=== PATIENT | female | born 1970 | race Caucasian/White ===

== ENCOUNTER 2017-09-27 22:08 | Emergency (ER) | payer BC, SELFPAY | END 2017-09-28 01:09 | disposition home or self-care (01) | PROVIDERS: Emergency Provider Emergency Medicine; Family Provider Emergency Medicine; Visit Provider Emergency Medicine | DX: L42 Pityriasis rosea (principal); R21 Rash and other nonspecific skin eruption; F17.210 Nicotine dependence, cigarettes, uncomplicated | CPT/HCPCS: 80053; 82550; 85025; 85651; 86140; 86592; 87040; 96365; 99283 ==

== ENCOUNTER → 2019-03-13 07:44 | Outpatient (CLI) | payer BC, SELFPAY ==
[2019-03-13 08:28] LABS: Basophils % 0.5 % (0.1-2.0); Eosinophils # 0.2 K/mm3 (0.0-0.4); Eosinophils % 2.5 % (0.1-12.0); Hematocrit 40.2 % (37.0-47.0); Hemoglobin 13.1 g/dL (12.2-16.2); Lymphocytes # 1.9 K/mm3 (0.7-4.5); Lymphocytes % 23.9 % (10-50); Mean Corpuscular HGB Conc 32.6 g/dL (31.8-35.4); Mean Corpuscular Hemoglobin 28.2 pg (27.0-31.2); Mean Corpuscular Volume 86.5 fl (81-99); Monocytes # 0.5 K/mm3 (0.1-1.0); Monocytes % 6.8 % (1.7-9.3); Neutrophils # 5.2 K/mm3 (1.8-7.8); Neutrophils % 66.3 % (37.0-80.0); Platelet Count 335 K/mm3 (142-424); Red Blood Count 4.65 M/mm3 (4.20-5.40); Red Cell Distribution Width 14.6 % (11.5-17.5); White Blood Count 7.8 K/mm3 (4.8-10.8)
[2019-03-13 10:08] LABS: Alanine Aminotransferase 16 U/L (12-78); Albumin Level 3.4 gm/dL (3.4-5.0); Albumin/Globulin Ratio 0.9 (1.1-1.8); Alkaline Phosphatase 107 U/L (46-116); Anion Gap 14.5 mEq/L (5-15); Aspartate Amino Transferase 17 U/L (15-37); Bilirubin,Total 0.7 mg/dL (0.2-1.0); Blood Urea Nitrogen 5 mg/dL (7-18); Calcium 8.9 mg/dL (8.5-10.1); Carbon Dioxide 28 mmol/L (21.0-32.0); Chloride 103 mmol/L (98-107); Chol/HDL Ratio 2.8 (1-3.5); Cholesterol 119 mg/dL (140-200); Creatinine,Serum 0.64 mg/dL (0.55-1.02); Estimated Glomerular Filt Rate 99 ml/min (>60); Free T4 (Free Thyroxine) 1.11 ng/dl (0.76-1.46); GFR (African American) 120 ML/MIN (>60); Globulin 3.6 gm/dl (1.3-3.2); Glucose 94 mg/dL (74-106); HDL Cholesterol 43 mg/dL (29-89); LDL Cholesterol 63 mg/dL (0-130); Potassium 4.5 mmoL/L (3.5-5.1); Sodium 141 mmol/L (136-145); Thyroid Stimulating Hormone 3.34 uIU/ml (0.358-3.740); Triglycerides 65 mg/dL (30-200); VLDL Cholesterol 13 mg/dL (0-40)
[2019-03-14 10:49] LABS: Vitamin D 25 Hydroxy 11.5 ng/mL (30.0-100.0)
[2019-03-20 06:16] LABS: H. pylori Breath Test Positive (Negative)
== END ==
PROVIDERS: Visit Provider Nurse Practitioner Family
DX: R53.83 Other fatigue (principal); R10.9 Unspecified abdominal pain; K21.9 Gastro-esophageal reflux disease without esophagitis
CPT/HCPCS: 36415; 80053; 80061; 82652; 83013; 84439; 84443; 85025

== ENCOUNTER 2020-03-28 20:43 | Inpatient (IN) | payer BC, SELFPAY ==
--- NOTE | 2020-03-28 20:51 | ECG_ITS ---
APPROVED REPORT Exam: Resting ECG HR:72 bpm ECG Measurements Heart Rate 72 AXES FL 132 P 80 QRSd 60 QRS 73 QT 398 T 69 QTc 435 <Conclusion> Normal sinus rhythm Right atrial enlargement Borderline ECG Electronically signed by : Delvis Soliman, 03/30/2020 17:09:45
[2020-03-28 20:54] VITALS: BP 130/75; PULSE 82; RESP 16; TEMP 36.2; O2SAT 95; BMI 19.7
--- NOTE | 2020-03-28 21:00 | XR_ITS ---
PROCEDURE: XR CHEST 2V CLINICAL HISTORY: shortness of air COMPARISON: CXR CHEST(2 VIEWS-NOT PORTABLE) from 10/21/2016 CXR CHEST(2 VIEWS-NOT PORTABLE) from 02/07/2017 FINDINGS: The cardiomediastinal silhouette and pulmonary vascularity are within normal limits. There is a medium-sized left pneumothorax. There is depression of the hemidiaphragm and minimal tracheal deviation toward the right. The pneumothorax is approximately 40 percent of the total lung volume and may be under tension. There is increasing consolidation in both upper lobes with right apical pleural thickening. There may be a small amount of gas in the soft tissues of the neck. No acute bony abnormalities. IMPRESSION: Moderate-sized left-sided pneumothorax which may be under some tension. Increasing fibronodular changes/consolidation in both upper lobes with increasing apical thickening on right Dictated by: Rafael Joseph MD 03/29/2020 05:26 Electronically signed by Rafael Joseph MD in [place] 03/29/2020 05:26
[2020-03-28 21:16] LABS: Chloride 104 mmol/L (98-107); Potassium 3.7 mmoL/L (3.5-5.1); Sodium 138 mmol/L (136-145)
[2020-03-28 21:19] LABS: Alanine Aminotransferase 12 U/L (12-78); Albumin Level 4.2 g/dl (3.5-5.0); Alkaline Phosphatase 116 U/L (38-126); Anion Gap 9.7 mEq/L (5-15); Aspartate Amino Transferase 25 U/L (14-36); Bilirubin,Direct 0.3 mg/dl (0.0-0.4); Bilirubin,Indirect 0.1 mg/dL (0.0-0.9); Bilirubin,Total 0.4 mg/dl (0.2-1.3); Bilirubin,Unconjugated 0.2 mg/dL (0.0-1.1); Blood Urea Nitrogen 8 mg/dl (7-17); Calcium 8.9 mg/dl (8.4-10.2); Carbon Dioxide 28 mmol/L (22.0-30.0); Creatinine Clearance Estimated 81 mL/min (50-200); Estimated Glomerular Filt Rate 89 ml/min (>60); GFR (African American) 108 ML/MIN (>60); Glucose 133 mg/dl (74-100); Total Protein,Serum 7.9 g/dl (6.3-8.2)
[2020-03-28 21:21] LABS: Basophils # 0.1 K/mm3 (0-0.2); Basophils % 0.5 % (0.1-2.0); Eosinophils # 0.1 K/mm3 (0.0-0.4); Eosinophils % 1.3 % (0.1-12.0); Hematocrit 38.9 % (37.0-47.0); Hemoglobin 12.8 g/dL (12.2-16.2); Lymphocytes # 2.6 K/mm3 (0.7-4.5); Lymphocytes % 27.9 % (10-50); Mean Corpuscular Hemoglobin 29.5 pg (27.0-31.2); Mean Corpuscular Volume 89.3 fl (81-99); Mean Platelet Volume 8.3 fl (7.4-10.4); Monocytes # 0.6 K/mm3 (0.1-1.0); Monocytes % 6.6 % (1.7-9.3); Neutrophils % 63.7 % (37.0-80.0); Platelet Count 357 K/mm3 (142-424); Red Blood Count 4.35 M/mm3 (4.20-5.40); White Blood Count 9.5 K/mm3 (4.8-10.8)
[2020-03-28 21:24] LABS: C-Reactive Protein 8.9 mg/L (0-4)
[2020-03-28 21:34] VITALS: PULSE 77
[2020-03-28 21:39] VITALS: BP 98/50; PULSE 77; RESP 18; O2SAT 95
[2020-03-28 21:42] LABS: Troponin I < 0.01 ng/ml (0.00-0.034)
--- NOTE | 2020-03-28 22:16 | PC.NURSE ---
call placed to [facility] for b ed assignment, dx pneumo; tyesha arambula, room 209, acute
--- NOTE | 2020-03-28 22:25 | HMH.EDSOB ---
ED Disposition Clinical Impression: Pneumothorax on left, Tobacco use COPD (chronic obstructive pulmonary disease) Qualifiers: COPD type: unspecified COPD Qualified Code(s): J44.9 - Chronic obstructive pulmonary disease, unspecified Disposition: Admitted as Observation Condition on Discharge: Good - Critical Care Critical Care Time: No Attestation: On 03/28/20, the high probability of a clinically significant, sudden or life threatening deterioration of the following system(s) required my full and direct attention, intervention and personal management. The time I documented below is in addition to time spent performing reported procedures but includes the following listed in this critical care notation. Medical Decision Making - Medical Records Medical records reviewed: Yes: I reviewed the patient's medical records. - Juanpablo Inquiry Pt receiving controlled substance: No Vital Signs: 03/28/20 20:54 03/28/20 21:34 03/28/20 21:39 Temperature 97.2 F L Temperature Source Oral Pulse Rate 77 Pulse Rate [Right Brachial] 82 77 Respiratory Rate 16 18 Blood Pressure [Right Arm] 130/75 98/50 L Blood Pressure Mean [Right Arm] 93 66 Blood Pressure Source [Right Arm] Automatic Cuff Blood Pressure Position [Right Arm] Sitting 02 Sat by Pulse Oximetry 95 95 Oxygen Delivery Method Room Air Room Air - Lab Data Lab results reviewed: Yes: I reviewed the patient's lab results. Lab Results 03/28/20 21:06: WBC 9.5, RBC 4.35, Hgb 12.8, Hct 38.9, MCV 89.3, MCH 29.5, MCHC 33.0, RDW 14.0, Plt Count 357, MPV 8.3, Neut % (Auto) 63.7, Lymph % (Auto) 27.9, Greene % (Auto) 6.6, Eos % (Auto) 1.3, Baso % (Auto) 0.5, Neut # (Auto) 6.0, Lymph # (Auto) 2.6, Greene # (Auto) 0.6, Eos # (Auto) 0.1, Baso # (Auto) 0.1 03/28/20 21:06: Sodium 138, Potassium 3.7, Chloride 104, Carbon Dioxide 28, Anion Gap 9.7, BUN 8, Creatinine 0.70, Estimated Creat Clear 81, Estimated GFR 89, Est GFR ( Amer) 108, Glucose 133 H, Calcium 8.9, Total Bilirubin 0.4, Direct Bilirubin 0.3, Conjugated Bilirubin 0.0, Indirect Bilirubin 0.1, Unconjugated Bilirubin 0.2, AST 25, ALT 12, Alkaline Phosphatase 116, Troponin I < 0.01, C-Reactive Protein 8.9 H, Total Protein 7.9, Albumin 4.2 Result diagrams: 03/28/20 21:06 03/28/20 21:06 Orders (Tests/Meds): ED MEDICATIONS Discontinued Medications Generic Name Dose Route Start Last Admin Trade Name Ever PRN Reason Stop Dose Admin Albuterol/Ipratropium 3 ml 03/28/20 21:27 03/28/20 21:31 Duoneb 3ml Neb IH 03/28/20 21:28 3 ml ONCE ONE Administration ORDERS Category Date Time Status Chest XR 2 view (NOT portable) [XR chest 2V] Stat Exams 03/28/20 21:00 Taken ESR [Erythrocyte Sedimentation Rate] Stat Lab 03/28/20 21:06 Received Troponin I Q3H Lab 03/29/20 00:15 Ordered Troponin I Q3H Lab 03/29/20 03:15 Ordered - Radiology Data #1 Image(s): Chest Image Reviewed: Yes I reviewed the patient's radiology image Preliminary Findings: Abnormal (pxt ) - ECG Data Tracing #1 Normal Sinus Rhythm: Yes Ischemic changes: non-specific ST-T wave changes - Physician Consults Physician Consulted: allran Reason -: Pt condition Resp/SOB HPI - General Chief Complaint: Shortness of Breath/Dyspnea Stated Complaint: Cannot breathe, COPD Time Seen by Provider: 03/28/20 21:30 Mode of Arrival: Family Vehicle Source of Information: Patient, Significant Other, Medical Record Limitations: No Limitations Description of Symptoms (Recalled from ER Triage Doc. 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 tried to use her inhaler and it didn't help. denies n/v/d. no change in meds, no change in uop. pt is alert-oriented x4. no acute distress. - History of Present Illness pt with hx of copd and had sob which started today about 1400 - no other c/o MD Complaint: shortness of breath Onset (ago): hour(s) Severity: moderate Known histor
--- NOTE | 2020-03-28 22:43 | PC.NURSE ---
dr iyer at bedside
--- NOTE | 2020-03-28 23:11 | XR_ITS ---
PROCEDURE: XR CHEST PORTABLE CLINICAL HISTORY: chest tube placement The follow-up pneumothorax COMPARISON: CXR CHEST(2 VIEWS-NOT PORTABLE) from 10/21/2016 CXR CHEST(2 VIEWS-NOT PORTABLE) from 02/07/2017 XR CHEST 2V from 03/28/2020 FINDINGS: Status post insertion of left-sided chest tube with interval decrease in size of the left pneumothorax. There does appear to be a small residual pneumothorax measuring approximately 1 cm in thickness. There is persistent consolidation with pleural thickening in both lung apices right greater than left. There is a small amount of subcutaneous emphysema at the pneumothorax insertion site IMPRESSION: Status post chest tube insertion with decrease in size of left pneumothorax with persistent biapical fibronodular changes right greater than left Dictated by: Rafael Joseph MD 03/29/2020 05:28 Electronically signed by Rafael Joseph MD in [place] 03/29/2020 05:28
[2020-03-28 23:23] LABS: Erythrocyte Sedimentation Rate 16 mm/hr (0-20)
--- NOTE | 2020-03-28 23:24 | HMH.GSCON ---
*Admission Date: 03/28/20 *Reason for consult:: Left pneumothorax *History of present illness: Patient is a 49-year-old female. She has a history of a spontaneous right pneumothorax years ago which reportedly failed to resolve and she ultimately required video-assisted thorascopic surgery. She was in her usual state of health until approximately 2 PM today at which time she developed onset of left-sided chest pain and shortness of air. She presented to the emergency department where chest x-ray revealed findings of an appreciable left-sided pneumothorax. Surgical consultation was obtained. Review of Systems - Review of Systems Review of systems:: pertinent systems reviewed and negative unless documented below - *Neurologic Denies localized weakness, Denies seizure-like activity [facility] History I have reviewed the patient's past medical history: Yes Medical History: Reports:: Chronic Obstructive Pulmonary Disease (COPD), Gastroesophageal Reflux Disease(GERD) *Have you ever received a pneumonia vaccine?: No *Have you received a flu vaccine this season?: No Other Surgeries: Yes: Other Amputation: No Fractures: No - *Social History Smoking Status: Current every day smoker Tobacco Type: cigarettes # Packs/Day (cigarettes): 1 Alcohol Intake: never Substance Use Type: marijuana *Occupational Status:: employed *Travel in the last 8 weeks: None Family Hx:: Hypertension, Diabetes Meds Home Medications Medication Instructions Recorded Confirmed Type No Known Home Medications 03/28/20 03/28/20 History Allergies Allergy/AdvReac Type Severity Reaction Status Date / Time Penicillins [PENICILLINS] Allergy Unknown Verified 03/28/20 21:01 Exam Vital signs and Labs for Last 24 Hours: Temp Pulse Resp BP Pulse Ox 97.2 F L 77 18 98/50 L 95 03/28/20 20:54 03/28/20 21:39 03/28/20 21:39 03/28/20 21:39 03/28/20 21:39 Laboratory Results - last 24 hr 03/28/20 21:06: WBC 9.5, RBC 4.35, Hgb 12.8, Hct 38.9, MCV 89.3, MCH 29.5, MCHC 33.0, RDW 14.0, Plt Count 357, MPV 8.3, Neut % (Auto) 63.7, Lymph % (Auto) 27.9, Levy % (Auto) 6.6, Eos % (Auto) 1.3, Baso % (Auto) 0.5, Neut # (Auto) 6.0, Lymph # (Auto) 2.6, Levy # (Auto) 0.6, Eos # (Auto) 0.1, Baso # (Auto) 0.1 03/28/20 21:06: Sodium 138, Potassium 3.7, Chloride 104, Carbon Dioxide 28, Anion Gap 9.7, BUN 8, Creatinine 0.70, Estimated Creat Clear 81, Estimated GFR 89, Est GFR ( Amer) 108, Glucose 133 H, Calcium 8.9, Total Bilirubin 0.4, Direct Bilirubin 0.3, Conjugated Bilirubin 0.0, Indirect Bilirubin 0.1, Unconjugated Bilirubin 0.2, AST 25, ALT 12, Alkaline Phosphatase 116, Troponin I < 0.01, C-Reactive Protein 8.9 H, Total Protein 7.9, Albumin 4.2 03/28/20 21:06: ESR 16 I & O for Last 24 hours: Intake & Output 03/26/20 03/27/20 03/28/20 03/29/20 11:59 11:59 11:59 11:59 Weight 115 lb Narrative: Patient is a thin female in no acute distress. Diminished breath sounds on the left. Results - Labs 03/28/20 21:06 03/28/20 21:06 Laboratory Results - last 24 hr 03/28/20 21:06: WBC 9.5, RBC 4.35, Hgb 12.8, Hct 38.9, MCV 89.3, MCH 29.5, MCHC 33.0, RDW 14.0, Plt Count 357, MPV 8.3, Neut % (Auto) 63.7, Lymph % (Auto) 27.9, Levy % (Auto) 6.6, Eos % (Auto) 1.3, Baso % (Auto) 0.5, Neut # (Auto) 6.0, Lymph # (Auto) 2.6, Levy # (Auto) 0.6, Eos # (Auto) 0.1, Baso # (Auto) 0.1 03/28/20 21:06: Sodium 138, Potassium 3.7, Chloride 104, Carbon Dioxide 28, Anion Gap 9.7, BUN 8, Creatinine 0.70, Estimated Creat Clear 81, Estimated GFR 89, Est GFR ( Amer) 108, Glucose 133 H, Calcium 8.9, Total Bilirubin 0.4, Direct Bilirubin 0.3, Conjugated Bilirubin 0.0, Indirect Bilirubin 0.1, Unconjugated Bilirubin 0.2, AST 25, ALT 12, Alkaline Phosphatase 116, Troponin I < 0.01, C-Reactive Protein 8.9 H, Total Protein 7.9, Albumin 4.2 03/28/20 21:06: ESR 16 Assessment and Plan - Assessment and plan all Dx Assessment and Plan for all problems:: Spontaneous left pn
--- NOTE | 2020-03-28 23:26 | P.PCN_ITS ---
[facility] Procedure Note Procedure Note:: Diagnosis/indications: Spontaneous left pneumothorax Anesthesia: Fentanyl 50 mcg, Versed 2 mg, 1% Xylocaine local anesthetic Procedure performed: Placement of 24 [place] left thoracostomy tube Consent was obtained. Patient was positioned in supine position. Left chest was prepped and draped in the standard surgical fashion. Local anesthetic was infiltrated. Approximately 1-1/2 cm incision was made. Dissection was carried down using blunt dissection with spreading of the intercostal muscles bluntly e ntering the pleural space over the anterior lateral rib. There was a leon of air. 24 [place] Island[place] thoracostomy tube was inserted and manipulated anteriorly to approximately the [address] It was secured at the skin with 0 silk suture. Dressing was applied. Thoracostomy tube was secured to the Pleur-evac and airleak appeared to resolve quickly. Post procedure chest x-ray revealed good placement with good lung reexpansion.
[2020-03-28 23:30] VITALS: BP 113/64; PULSE 84; RESP 17; TEMP 36.6; O2SAT 91
[2020-03-28 23:35] VITALS: BP 117/68; PULSE 78; RESP 17; TEMP 36.6; O2SAT 97; BMI 19.3
--- NOTE | 2020-03-28 23:36 | PC.NURSE ---
PT ARRIVED TO THE FLOOR VIA STRETCHER FROM ED @ [id number].
[2020-03-29 00:20] VITALS: BMI 19.7
--- NOTE | 2020-03-29 00:23 | PC.NURSE ---
2244 SPEAKING WITH PT CONCERNING PROCEDURE.HE ORDERED VERSED 2MG AND FENTANYL 50 MCG TO BE GIVEN PRIOR TO PROCEDURE 2254 BP 142/103 P 87 RESP 18 SAT 90.PT GIVEN O2 AT 2L/NC 2257 DR ROSS STARTING TO PREP L CHEST WALL AREA FOR CHEST TUBE. DR TO USE 24 TROCAR. 2300 BP 89/55 P 80 SAT 90 2302 NS STARTED WOR BP 88/56 P87 SAT 94 2305 BP 95/47 P82 SAT 94 2307 BP88/45P79 R16 SAT 95 2309 BP84/47 P84 SAT 94 2313 BP88/49 P81 SAT [address] ROSS SECURED TUBE WITH 0 -SILK SUTURES OCCLUSIVE DRESSING OF VASELINE GAUZE AND OPSITE BP 106/63 P78 SAT90 2330 BP 113/64 P84 SAT 91 PT REMAINED RESPONSIVE AND COMMUNICATIVE THROUGHOUT PROCEDURE.TOLERATED PROCEDURE WELL. RESPIRATIONS UNLABORED.
[2020-03-29 04:00] VITALS: BP 139/70; PULSE 56; RESP 16; TEMP 36.4; O2SAT 99
--- NOTE | 2020-03-29 04:48 | PC.NURSE ---
A&O X4. PT STATED SHE HAS NOT BEEN TO SLEEP IN ALMOST 24 HOURS UPON ADMISSION. PT DID REST WITH EYES CLOSED INTERMITTENTLY T/O THIS AM. NO C/O SOA. CHEST TUBE REMAINS IN PLACE ON LEFT SIDE WITH MILD C/O PAIN. ADMINISTERED TORDOL X1 PER DEC AND TYLENOL X1 PER DEC FOR PAIN RELIEF. AFTER GENTLY REPOSITIONING THE PT THIS MORNING TO PROVIDE RELIEF OFF HER BACK WITH PILLOWS, SHE STATES ADEQUATE PAIN RELIEF INSTANTLY. PT STATES SHE IS NOT USED TO SLEEPING ON HER BACK ALL NIGHT . NO DRAINAGE NOTED IN PLEUROVAC THUS FAR THIS SHIFT. TOLERATES 2LNC WELL WITH NO C/O SOA. RR EVEN AND UNLABORED. BSC AT BEDSIDE FOR USE. VSS. REMAINS SAFE. CALL LIGHT WITHIN REACH. WILL CONTINUE TO MONITOR.
[2020-03-29 05:51] VITALS: BMI 19.6
[2020-03-29 06:53] LABS: Basophils % 0.3 % (0.1-2.0); Eosinophils # 0.1 K/mm3 (0.0-0.4); Eosinophils % 0.4 % (0.1-12.0); Hematocrit 32.4 % (37.0-47.0); Monocytes # 0.6 K/mm3 (0.1-1.0); Red Cell Distribution Width 14.1 % (11.5-17.5)
[2020-03-29 06:54] LABS: Chloride 109 mmol/L (98-107); Potassium 3.9 mmoL/L (3.5-5.1); Sodium 136 mmol/L (136-145)
[2020-03-29 06:57] LABS: Anion Gap 5.9 mEq/L (5-15); Blood Urea Nitrogen 7 mg/dl (7-17); Carbon Dioxide 25 mmol/L (22.0-30.0); Creatinine Clearance Estimated 95 mL/min (50-200); Estimated Glomerular Filt Rate 107 ml/min (>60); GFR (African American) 129 ML/MIN (>60)
[2020-03-29 06:58] LABS: Glucose 106 mg/dl (74-100)
--- NOTE | 2020-03-29 07:00 | XR_ITS ---
PROCEDURE: XR CHEST PORTABLE CLINICAL HISTORY: chest tube COMPARISON: CXR CHEST(2 VIEWS-NOT PORTABLE) from 02/07/2017 XR CHEST PORTABLE from 03/28/2020 XR CHEST 2V from 03/28/2020 FINDINGS: Left-sided chest tube remains in place. Left-sided pneumothorax continues to decrease in size with only a minimal left apical component. There is some increased density in the left lower lobe possibly due to re-expansion edema. Noted in consolidation once again noted in the lung apices with pleural thickening with questionable cavitation in the upper lobes. These findings may be seen with tuberculosis. Consider chest CT for further evaluation. Trace bilateral effusions suspected. Nonspecific 8 mm nodules present in the right upper lobe. No acute bony abnormalities. IMPRESSION: 1. Left chest tube unchanged with only small left apical pneumothorax with possible re-expansion edema in the left lower lobe. Trace bilateral effusions. 2. Biapical consolidation with pleural thickening and possible cavitation. Tuberculosis could cause this finding. Consider chest CT for further evaluation. Dictated by: Rafael Joseph MD 03/29/2020 08:30 Electronically signed by Rafael Joseph MD in [place] 03/29/2020 08:30
[2020-03-29 07:08] LABS: Lymphocytes # 1.3 K/mm3 (0.7-4.5); Lymphocytes % 11.4 % (10-50); Mean Corpuscular HGB Conc 33.4 g/dL (31.8-35.4); Mean Corpuscular Hemoglobin 29.5 pg (27.0-31.2); Mean Corpuscular Volume 88.4 fl (81-99); Mean Platelet Volume 8.2 fl (7.4-10.4); Monocytes % 4.8 % (1.7-9.3); Neutrophils # 9.7 K/mm3 (1.8-7.8); Neutrophils % 83.2 % (37.0-80.0); Platelet Count 277 K/mm3 (142-424); Red Blood Count 3.66 M/mm3 (4.20-5.40); White Blood Count 11.6 K/mm3 (4.8-10.8)
[2020-03-29 07:11] LABS: Calcium 7.8 mg/dl (8.4-10.2)
--- NOTE | 2020-03-29 07:21 | HMH.PHAVTE ---
[facility] Pharm[facility] VTE Monitoring - Patient Demographics Admission date: 03/28/20 Report Date: 03/29/20 Time: 07:21 Allergies/Adverse Reactions: Patient Allergies Penicillins [PENICILLINS] Allergy (Unknown, Verified 03/28/20 21:01) Height: 1.63 m Weight: 52.22 kg Patient Problems: Current Active Problems Pneumothorax on left (Acute) COPD (chronic obstructive pulmonary disease) (Acute) Tobacco use (Acute) - VTE Risk Labs: VTE Related Lab Results Hgb 12.8 g/dL (12.2-16.2) 03/28/20 21:06 Hct 38.9 % (37.0-47.0) 03/28/20 21:06 Plt Count 357 K/mm3 (142-424) 03/28/20 21:06 BUN 7 mg/dl (7-17) 03/29/20 06:05 Creatinine 0.60 mg/dl (0.52-1.04) 03/29/20 06:05 Estimated Creat Clear 95 mL/min (50-200) 03/29/20 06:05 VTE Score: 2 VTE Risk Level: Very Low Risk - Prophylaxis VTE Prophylaxis Ordered?: Yes Types of VTE Prophylaxis: TEDS Knee High Location of Applied Device: Bilateral Lower Extremeties - VTE Diagnosis Confirmed Treatment or plan recommended: Continue Current Treatment
[2020-03-29 07:23] LABS: Hemoglobin 10.8 g/dL (12.2-16.2)
[2020-03-29 07:45] VITALS: BP 121/62; PULSE 76; RESP 12; TEMP 36.7; O2SAT 100
--- NOTE | 2020-03-29 08:28 | P.PN_ITS ---
Subjective Patient reports: no new complaints Narrative: She states that she is doing okay since chest tube placed . She has some discomfort but no significant pain. She states that she is breathing fine . Exam Vital signs and Labs for Last 24 Hours: Temp Pulse Resp BP Pulse Ox 98.0 F 76 12 121/62 100 03/29/20 07:45 03/29/20 07:45 03/29/20 07:45 03/29/20 07:45 03/29/20 07:45 Laboratory Results - last 24 hr 03/28/20 21:06: WBC 9.5, RBC 4.35, Hgb 12.8, Hct 38.9, MCV 89.3, MCH 29.5, MCHC 33.0, RDW 14.0, Plt Count 357, MPV 8.3, Neut % (Auto) 63.7, Lymph % (Auto) 27.9, Elmore % (Auto) 6.6, Eos % (Auto) 1.3, Baso % (Auto) 0.5, Neut # (Auto) 6.0, Lymph # (Auto) 2.6, Elmore # (Auto) 0.6, Eos # (Auto) 0.1, Baso # (Auto) 0.1 03/28/20 21:06: Sodium 138, Potassium 3.7, Chloride 104, Carbon Dioxide 28, Anion Gap 9.7, BUN 8, Creatinine 0.70, Estimated Creat Clear 81, Estimated GFR 89, Est GFR ( Amer) 108, Glucose 133 H, Calcium 8.9, Total Bilirubin 0.4, Direct Bilirubin 0.3, Conjugated Bilirubin 0.0, Indirect Bilirubin 0.1, Unconjugated Bilirubin 0.2, AST 25, ALT 12, Alkaline Phosphatase 116, Troponin I < 0.01, C-Reactive Protein 8.9 H, Total Protein 7.9, Albumin 4.2 03/28/20 21:06: ESR 16 03/29/20 06:05: WBC 11.6 H, RBC 3.66 L, Hgb 10.8 L D, Hct 32.4 L, MCV 88.4, MCH 29.5, MCHC 33.4, RDW 14.1, Plt Count 277, MPV 8.2, Neut % (Auto) 83.2 H, Lymph % (Auto) 11.4, Elmore % (Auto) 4.8, Eos % (Auto) 0.4, Baso % (Auto) 0.3, Neut # (Auto) 9.7 H, Lymph # (Auto) 1.3, Elmore # (Auto) 0.6, Eos # (Auto) 0.1, Baso # (Auto) 0.0 03/29/20 06:05: Sodium 136, Potassium 3.9, Chloride 109 H, Carbon Dioxide 25, Anion Gap 5.9, BUN 7, Creatinine 0.60, Estimated Creat Clear 95, Estimated GFR 107, Est GFR ( Amer) 129, Glucose 106 H D, Calcium 7.8 L D, Magnesium 2.0 I & O for Last 24 hours: Intake & Output 03/26/20 03/27/20 03/28/20 03/29/20 11:59 11:59 11:59 11:59 Output Total 250 / 250 Balance -250 / -250 Weight 115 lb 2 oz Radiology Reports for the Last 24 Hours: Some apical lucency without definitive classic pneumothorax line . - Constitutional no acute distress - *Routine Respiratory Exam Absent: respiratory distress Comments: No definitive air leak - *Routine Cardiovascular Exam Present: RRR Progress Note: A&P (1) Pneumothorax on left Status: Acute Assessment and plan: Overall, doing well status post placement of chest tube. Continue chest tube to continuous suction for now Current Visit: Yes
--- NOTE | 2020-03-29 09:04 | HMH.HP ---
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 She does have a history of a spontaneous right pneumothorax years past, when it failed to resolve a video-assisted thorascopic surgery was needed and performed. Chest x-ray in ER revealed a left-sided pneumothorax, general surgery was consulted General surgery placed a left-sided chest tube 03/28/2020: Consent was obtained. Patient was positioned in supine position. Left chest was prepped and draped in the standard surgical fashion. Local anesthetic was infiltrated. Approximately 1-1/2 cm incision was made. Dissection was carried down using blunt dissection with spreading of the intercostal muscles bluntly entering the pleural space over the anterior lateral rib. There was a leon of air. 24 Sami thoracostomy tube was inserted and manipulated anteriorly to approximately the [address] It was secured at the skin with 0 silk suture. Dressing was applied. Thoracostomy tube was secured to the Pleur-evac and airleak appeared to resolve quickly. Post procedure chest x-ray revealed good placement with good lung reexpansion. [facility] History Medical History: Reports:: Chronic Obstructive Pulmonary Disease (COPD), Gastroesophageal Reflux Disease(GERD) Denies:: Cancer, Diabetes Mellitus Type 1, Diabetes Mellitus Type 2, MRSA *Have you ever received a pneumonia vaccine?: No *Have you received a flu vaccine this season?: No Other Medical History: Reports: Anemia Other Surgeries: Yes: Other Amputation: No Fractures: No (Left wrist 1985) - *Social History Educational Level: Completed High School Smoking Status: Current every day smoker Tobacco Type: cigarettes # Packs/Day (cigarettes): 1 Alcohol Intake: never Substance Use Type: marijuana Last Used Substance: unknown *Occupational Status:: employed Housing: house Household Members: significant other *Travel in the last 8 weeks: None Family Hx:: Asthma, Cancer, Diabetes, Heart Attack, Hypertension, Stroke Review of Systems - Review of Systems Review of systems:: pertinent systems reviewed and negative unless documented below - Constitutional Denies chills, Denies fever(s) - Eyes Denies change in vision - ENT Denies bleeding gums, Denies lip swelling - *Cardiovascular Reports chest pain, Reports shortness of breath - *Respiratory Reports shortness of breath, Denies chest congestion, Denies cough - *Gastrointestinal Denies abdominal pain, Denies difficulty swallowing - *Musculoskeletal Denies abnormal walking, Denies body aches - Integumentary/Breasts Denies bleeding lesions, Denies yellowing of the skin - *Neurologic Denies abnormal hearing, Denies localized weakness, Denies seizure-like activity - Psychiatric Denies behavioral changes, Denies change in appetite - Endocrine Denies cold intolerance, Denies heat intolerance - Hematologic/Lymphatic Denies easy bleeding, Denies easy bruising - Allergic/Immunologic Denies lip swelling, Denies tongue swelling Meds Home Medications Medication Instructions Recorded Confirmed Type No Known Home Medications 03/28/20 03/28/20 History Allergies Allergy/AdvReac Type Severity Reaction Status Date / Time Penicillins [PENICILLINS] Allergy Unknown Verified 03/28/20 21:01 Exam Vital signs and Labs for Last 24 Hours: Temp Pulse Resp BP Pulse Ox 98.0 F 76 12 121/62 100 03/29/20 07:45 03/29/20 07:45 03/29/20 07:45 03/29/20 07:45 03/29/20 07:45 Laboratory Results - last 24 hr 03/28/20 21:06: WBC 9.5, RBC 4.35, Hgb 12.8, Hct 38.9, MCV 89.3, MCH 29.5, MCHC 33.0, RDW 14.0, Plt Count 357, MPV 8.3, Neut % (Auto) 63.7, Lymph
--- NOTE | 2020-03-29 10:13 | PC.NURSE ---
PT EDUCATED ON WHAT BEING OPTED OFF CENSUS MEANT. PT STATED SHE WOULD RATHER SET UP A PASSWORD AND NOT BE OPTED OFF CENSUS. PASSWORD IS PIG
[2020-03-29 16:00] VITALS: BP 121/65; PULSE 50; RESP 14; TEMP 36.7; O2SAT 100
--- NOTE | 2020-03-29 17:18 | PC.NURSE ---
PT HAS DONE WELL TODAY. NO C/O PAIN, JUST SOME SORENESS AT SITE. BANDAGE AT SITE HAS DRY DRAINAGE PRESENT, HAS NOT INCREASE ANY SINCE MD ALMARAZ WAS AT BEDSIDE THIS AM. PT HAS BEEN UP TO BSC MULTIPLE TIMES. PT REPORTS SPELLS OF COUGHING . 54ML OF SEROSANGUINOUS DRAINAGE NOTED IN PLEUROVAC. REMAINS ON 2LNC. VSS. WILL CONT. TO MONITOR.
[2020-03-29 19:58] VITALS: BP 115/66; PULSE 76; RESP 22; TEMP 36.6; O2SAT 99
[2020-03-29 20:24] VITALS: O2SAT 99
[2020-03-30] VITALS (9 sets, daily range): BP systolic 110–154; BP diastolic 56–72; PULSE 51–72; RESP 16–20; TEMP 36.6–37.5; O2SAT 96–100; BMI 21.7
--- NOTE | 2020-03-30 06:00 | XR_ITS ---
PROCEDURE: XR CHEST PORTABLE CLINICAL HISTORY: left PTX Follow-up pneumothorax COMPARISON: XR CHEST 2V from 03/28/2020 XR CHEST PORTABLE from 03/28/2020 XR CHEST PORTABLE from 03/29/2020 FINDINGS: Left-sided chest tube remains in place. There is only a minimal left apical pneumothorax noted. Subcutaneous emphysema noted on the left the lateral chest wall. There are Mackenzie B lines in the left lung base consistent with some interstitial edema. Re-expansion edema is considered. There is some increasing density in the right lung base which may be related area of atelectasis or infiltrate. No change in the biapical fibronodular changes and pleural thickening with possible cavitation. IMPRESSION: Overall no significant change left chest tube, tiny left apical pneumothorax, re-expansion edema in the left lung base, bilateral apical fibronodular changes with possible cavitation. Atelectasis or infiltrate in the right lung base new since the previous exam Dictated by: Rafael Joseph MD 03/30/2020 08:55 Electronically signed by Rafael Joseph MD in [place] 03/30/2020 08:55
--- NOTE | 2020-03-30 06:55 | PC.NURSE ---
Pt is A&Ox4 and has ambulated to the [facility] [place] [facility] a few times this shift independently and tolerated well. Pt has c/o pain 2x this shift, medicated per MAR with fair pain relief. Pt c/o of feeling uncomfortable d/t chest tube in place but states It doesn't really hurt bad unless I cough . Pt's cough has increased in intensity and developed production of green/ylw thin sputum, sample collected and submitted to the lab. 24fr chest tube in place to left side connected to Pleurovac waterseal and set to suction. Pt has had an output of 147ml of serousanguineous fluid in pleurovac. At the beginning of the shift, pt had no subcutaneous crepitus, lungs CTA bilaterally, and pt denied any SOA or dyspena. Currently, pt has small amount of subcutaneous crepitus surrounding the dressing, mildly diminished lungs sounds to left base, sat 97% on 2L O2 per NC, RR 18 with equal and unlabored breaths. Pt reports she feels like I can't take as deep a breath as last night . Tidaling noted in water seal, no bubbling noted, no clots seen in tubes, all connections intact, dressing intact, suction working well. Hemostats, Sterile water, and petroleum occlusive dressing at bedside. IS teaching completed with pt and reached 1250ml. VSS, call light within reach, will continue to monitor.
[2020-03-30 07:18] LABS: Chloride 110 mmol/L (98-107); Sodium 137 mmol/L (136-145)
[2020-03-30 07:21] LABS: Blood Urea Nitrogen 5 mg/dl (7-17); Carbon Dioxide 24 mmol/L (22.0-30.0); Creatinine Clearance Estimated 105 mL/min (50-200); Estimated Glomerular Filt Rate 107 ml/min (>60); GFR (African American) 129 ML/MIN (>60)
[2020-03-30 07:22] LABS: Calcium 8.1 mg/dl (8.4-10.2); Glucose 114 mg/dl (74-100)
[2020-03-30 07:26] LABS: Basophils % 0.3 % (0.1-2.0); Eosinophils # 0.1 K/mm3 (0.0-0.4); Eosinophils % 1.7 % (0.1-12.0); Hematocrit 32.8 % (37.0-47.0); Hemoglobin 10.8 g/dL (12.2-16.2); Lymphocytes # 1.4 K/mm3 (0.7-4.5); Lymphocytes % 17.5 % (10-50); Mean Corpuscular HGB Conc 32.8 g/dL (31.8-35.4); Mean Corpuscular Hemoglobin 29.6 pg (27.0-31.2); Mean Corpuscular Volume 90.5 fl (81-99); Mean Platelet Volume 8.7 fl (7.4-10.4); Monocytes # 0.4 K/mm3 (0.1-1.0); Monocytes % 5.3 % (1.7-9.3); Neutrophils # 6.1 K/mm3 (1.8-7.8); Neutrophils % 75.2 % (37.0-80.0); Platelet Count 260 K/mm3 (142-424); Red Blood Count 3.63 M/mm3 (4.20-5.40); Red Cell Distribution Width 14.3 % (11.5-17.5); White Blood Count 8.1 K/mm3 (4.8-10.8)
--- NOTE | 2020-03-30 08:36 | P.PN_ITS ---
Subjective Patient reports: no new complaints Exam Vital signs and Labs for Last 24 Hours: Temp Pulse Resp BP Pulse Ox 97.8 F 62 17 121/58 L 96 03/30/20 08:00 03/30/20 08:00 03/30/20 08:00 03/30/20 08:00 03/30/20 08:00 Laboratory Results - last 24 hr 03/30/20 07:08: WBC 8.1 D, RBC 3.63 L, Hgb 10.8 L, Hct 32.8 L, MCV 90.5, MCH 29.6, MCHC 32.8, RDW 14.3, Plt Count 260, MPV 8.7, Neut % (Auto) 75.2, Lymph % (Auto) 17.5, [place] % (Auto) 5.3, Eos % (Auto) 1.7, Baso % (Auto) 0.3, Neut # (Auto) 6.1, Lymph # (Auto) 1.4, [place] # (Auto) 0.4, Eos # (Auto) 0.1, Baso # (Auto) 0.0 03/30/20 07:08: Sodium 137, Potassium 4.0, Chloride 110 H, Carbon Dioxide 24, Anion Gap 7.0, BUN 5 L D, Creatinine 0.60, Estimated Creat Clear 105, Estimated GFR 107, Est GFR ( Amer) 129, Glucose 114 H, Calcium 8.1 L I & O for Last 24 hours: Intake & Output 03/27/20 03/28/20 03/29/20 03/30/20 11:59 11:59 11:59 11:59 Intake Total 3424 / 3424 Output Total 250 / 250 1601 / 1601 Balance -250 / -250 1823 / 1823 Weight 115 lb 2 oz 127 lb 7 oz Radiology Reports for the Last 24 Hours: There appears to be a tiny residual apical pneumothorax; however, increased haziness makes this determination somewhat questionable. - Constitutional no acute distress - *Routine Respiratory Exam Absent: respiratory distress Comments: Chest tube to suction with no air leak - *Routine Cardiovascular Exam Present: RRR Progress Note: A&P (1) Pneumothorax on left Status: Acute Assessment and plan: Overall, doing well status post chest tube placement that is now around 32 hours ago. She has had no air leak. A possible tiny residual apical is noted. She will be placed on water seal with close ongoing evaluation and follow-up chest films. Current Visit: Yes (2) COPD (chronic obstructive pulmonary disease) Status: Acute Current Visit: Yes (3) Tobacco use Status: Acute Current Visit: Yes
--- NOTE | 2020-03-30 09:01 | P.PN_ITS ---
Internal Medicine - PN: Subj *Date: 03/30/20 *Time: 09:01 Interval history: 49-year-old female patient sitting up in bed respirations easy even oxygen on 2 L. She reports she is feeling better denies any shortness of breath, she reports using her IS multiple times throughout the night encouraged to used 10 times every hour. Chest tube dressing C/D/I with no air leak, surgery has seen and will place chest tube to waterseal Exam Vital signs and Labs for Last 24 Hours: Temp Pulse Resp BP Pulse Ox 97.8 F 62 17 121/58 L 96 03/30/20 08:00 03/30/20 08:00 03/30/20 08:00 03/30/20 08:00 03/30/20 08:00 Laboratory Results - last 24 hr 03/30/20 07:08: WBC 8.1 D, RBC 3.63 L, Hgb 10.8 L, Hct 32.8 L, MCV 90.5, MCH 29.6, MCHC 32.8, RDW 14.3, Plt Count 260, MPV 8.7, Neut % (Auto) 75.2, Lymph % (Auto) 17.5, [place] % (Auto) 5.3, Eos % (Auto) 1.7, Baso % (Auto) 0.3, Neut # (Auto) 6.1, Lymph # (Auto) 1.4, [place] # (Auto) 0.4, Eos # (Auto) 0.1, Baso # (Auto) 0.0 03/30/20 07:08: Sodium 137, Potassium 4.0, Chloride 110 H, Carbon Dioxide 24, Anion Gap 7.0, BUN 5 L D, Creatinine 0.60, Estimated Creat Clear 105, Estimated GFR 107, Est GFR ( Amer) 129, Glucose 114 H, Calcium 8.1 L I & O for Last 24 hours: Intake & Output 03/27/20 03/28/20 03/29/20 03/30/20 23:59 23:59 23:59 23:59 Intake Total 1708 / 1708 1716 / 1716 Output Total 504 / 504 1347 / 1347 Balance 1204 / 1204 369 / 369 Weight 113 lb 115 lb 2 oz 127 lb 7 oz - Constitutional no acute distress - *Routine HEENT Exam ENT: Present: mucous membranes moist. Absent: sinus tenderness - *Routine Neck Exam Present: full ROM, trachea midline. Absent: JVD, tracheal deviation - *Routine Respiratory Exam Present: CTA bilaterally. Absent: accessory muscle use - *Routine Cardiovascular Exam Present: RRR - *Routine Abdominal Exam Present: soft, normoactive bowel sounds. Absent: tenderness - *Routine Extremities Exam Present: full ROM, pulses intact. Absent: calf tenderness - *Routine Skin Exam Present: wounds Comments: Chest tube dressing to left side C/D/I - *Routine Neurological Exam Present: alert, oriented X3 - Routine Psychiatric Exam Present: normal affect, normal thought process Assessment and Plan (1) Pneumothorax on left Current visit: Yes Status: Acute Category: Medical Code(s): J93.9 - Pneumothorax, unspecified (2) COPD (chronic obstructive pulmonary disease) Current visit: Yes Status: Acute Qualifiers: COPD type: unspecified COPD Qualified Code(s): J44.9 - Chronic obstructive pulmonary disease, unspecified Category: Medical Code(s): J44.9 - Chronic obstructive pulmonary disease, unspecified (3) Tobacco use Current visit: Yes Status: Acute Category: Social Hx Code(s): Z72.0 - Tobacco use - Assessment and plan all Dx Assessment and Plan for all problems:: Rounded with Dr. Hall, all orders per Dr. Hall: 1. We will follow with general surgery input
--- NOTE | 2020-03-30 10:30 | PC.NURSE ---
0935 CHEST TUBE WALL SUCTION REMOVED FROM DEVICE. PATIENT IS NOW ON WATER SEAL.
--- NOTE | 2020-03-30 14:00 | XR_ITS ---
PROCEDURE: XR CHEST PORTABLE CLINICAL HISTORY: left PTX (chest tube on water seal) Follow-up pneumothorax on water seal COMPARISON: XR CHEST PORTABLE from 03/28/2020 XR CHEST PORTABLE from 03/29/2020 XR CHEST PORTABLE from 03/30/2020 FINDINGS: Left chest tube remains in place. Left-sided pneumothorax has resolved. There remains some edema in the left lung base with atelectasis or infiltrate in the right lung base along with biapical pleural thickening and consolidation. IMPRESSION: Left chest tube remains in place with no evidence of pneumothorax There remains some edema in the left lung base with atelectasis or infiltrate in the right lung base along with biapical pleural thickening and consolidation. Dictated by: Rafael Joseph MD 03/30/2020 14:18 Electronically signed by Rafael Joseph MD in [facility] 03/30/2020 14:18
--- NOTE | 2020-03-30 17:53 | PC.NURSE ---
PATIENT NOTIFIED THIS RN THAT SHE IS FEELING TIGHT IN THE ABDOMEN. PATIENT AND SIGNIFICANT OTHER REQUESTED THE IV FLUIDS BE TURNED OFF. THIS RN ASSESSED PATIENT LUNG SOUNDS, CLEAR THROUOUT, THIS RN ASSESSED PATIENT'S CHEST TUBE SITE, DRESSING CLEAN, DRY AND INTACT. NO PAIN OR HARDNESS NOTED AROUND DRESSING. THIS RN ADVISED PATIENT TO WALK IN ROOM. THIS RN REASSESSED PATIENT AND PATIENT STATED THAT SHE DOES FEEL BETTER. NO OTHER NEEDS OR CONCERNS AT THIS TIME.
--- NOTE | 2020-03-30 19:11 | PC.NURSE ---
report given to louie
--- NOTE | 2020-03-30 20:47 | PC.NURSE ---
Pt's room air sat at rest = 96%.
[2020-03-31] VITALS: BP 117/72; PULSE 71; RESP 16; TEMP 36.7; O2SAT 92
[2020-03-31 05:00] VITALS: BMI 21.7
--- NOTE | 2020-03-31 06:00 | XR_ITS ---
PROCEDURE: XR CHEST PORTABLE CLINICAL HISTORY: left PTX COMPARISON: XR CHEST PORTABLE from 03/29/2020 XR CHEST PORTABLE from 03/30/2020 XR CHEST PORTABLE from 03/30/2020 FINDINGS: The left chest tube remains in place. There is slightly more prominent subcutaneous emphysema in the left chest wall than the most recent film 03/30/2020. Prominent bilateral apical pleural and parenchymal scarring is again noted more prominent right side than left. There is no pneumothorax remaining left-side. Minimal scarring is again seen at the right base with tenting of the right hemidiaphragm. No acute bony abnormalities. IMPRESSION: Interval increase in subcutaneous emphysema left chest wall, no residual pneumothorax seen Dictated by: Dr. Luis A Ceja MD 03/31/2020 07:[address] Luis A Ceja MD in [facility] 03/31/2020 07:59
--- NOTE | 2020-03-31 07:00 | PC.NURSE ---
Subcutaneous crepitus is noted scattered surrounding insertion site of chest tube. Pt denies any SOB or respiratory distress this shift. Seroussanguineous discharge saturated insertion site dressing covering, dressing reinforced and linens changed. 200ml output this shift to Pleuro-vac, which is set to water seal. Tidaling present and no excessive bubbling noted. Pt has continues to uses IS, goal reached 1x of 1500ml. Pt medicated for pain and 2x and slept well during the night.
--- NOTE | 2020-03-31 07:10 | P.PN_ITS ---
Subjective Patient reports: no new complaints, feels better Exam Vital signs and Labs for Last 24 Hours: Temp Pulse Resp BP Pulse Ox 98.0 F 71 16 117/72 92 L 03/31/20 00:00 03/31/20 00:00 03/31/20 00:00 03/31/20 00:00 03/31/20 00:00 Laboratory Results - last 24 hr 03/30/20 07:08: WBC 8.1 D, RBC 3.63 L, Hgb 10.8 L, Hct 32.8 L, MCV 90.5, MCH 29.6, MCHC 32.8, RDW 14.3, Plt Count 260, MPV 8.7, Neut % (Auto) 75.2, Lymph % (Auto) 17.5, [place] % (Auto) 5.3, Eos % (Auto) 1.7, Baso % (Auto) 0.3, Neut # (Auto) 6.1, Lymph # (Auto) 1.4, [place] # (Auto) 0.4, Eos # (Auto) 0.1, Baso # (Auto) 0.0 03/30/20 07:08: Sodium 137, Potassium 4.0, Chloride 110 H, Carbon Dioxide 24, Anion Gap 7.0, BUN 5 L D, Creatinine 0.60, Estimated Creat Clear 105, Estimated GFR 107, Est GFR ( Amer) 129, Glucose 114 H, Calcium 8.1 L I & O for Last 24 hours: Intake & Output 03/28/20 03/29/20 03/30/20 03/31/20 11:59 11:59 11:59 11:59 Intake Total 3424 / 3424 1080 / 1080 Output Total 250 / 250 1601 / 1601 Balance -250 / -250 1823 / 1823 1080 / 1080 Weight 115 lb 2 oz 127 lb 7 oz 127 lb 7.011 oz Microbiology Reports for the Last 24 Hours: Microbiology 03/30/20 06:20 Sputum - Expectorated Sputum Gram Stain - Final - Constitutional no acute distress - *Routine Respiratory Exam Absent: respiratory distress - *Routine Cardiovascular Exam Present: RRR Progress Note: A&P (1) Pneumothorax on left Status: Acute Assessment and plan: No obvious pneumothorax noted on yesterday afternoons chest x-ray (on waterseal) Follow-up morning chest x-ray Pending results of this morning's films her chest tube may be removed later today Current Visit: Yes (2) COPD (chronic obstructive pulmonary disease) Status: Acute Current Visit: Yes (3) Tobacco use Status: Acute Current Visit: Yes
[2020-03-31 07:38] VITALS: BP 119/56; PULSE 68; RESP 17; TEMP 36.7; O2SAT 98
[2020-03-31 09:00] VITALS: PULSE 68; RESP 17; O2SAT 98
--- NOTE | 2020-03-31 09:09 | HMH.ACPN2 ---
Internal Medicine - PN: Subj *Date: 03/31/20 *Time: 09:09 Interval history: pt states no pain, feeling well. nervous about having tube removed Exam Vital signs and Labs for Last 24 Hours: Temp Pulse Resp BP Pulse Ox 98.0 F 68 17 119/56 L 98 03/31/20 07:38 03/31/20 07:38 03/31/20 07:38 03/31/20 07:38 03/31/20 07:38 I & O for Last 24 hours: Intake & Output 03/28/20 03/29/20 03/30/20 03/31/20 11:59 11:59 11:59 11:59 Intake Total 3424 / 3424 1440 / 1440 Output Total 250 / 250 1601 / 1601 390 / 390 Balance -250 / -250 1823 / 1823 1050 / 1050 Weight 115 lb 2 oz 127 lb 7 oz 127 lb 7.011 oz Microbiology Reports for the Last 24 Hours: Microbiology 03/30/20 06:20 Sputum - Expectorated Sputum Gram Stain - Final 03/30/20 06:20 Sputum - Expectorated Sputum Sputum Culture - Preliminary - Constitutional no acute distress, thin - *Routine HEENT Exam Head: Present: normocephalic Eye: Present: PERRL ENT: Present: mucous membranes moist - *Routine Neck Exam Present: supple. Absent: lymphadenopathy - *Routine Respiratory Exam Present: wheezes - *Routine Cardiovascular Exam Present: RRR - *Routine Abdominal Exam Present: soft, normoactive bowel sounds. Absent: tenderness - *Routine Extremities Exam Present: normal capillary refill. Absent: cyanosis, clubbing, edema - *Routine Skin Exam Present: warm. Absent: rash Comments: dressing to left chest, tube inplace - *Routine Neurological Exam Present: alert, oriented X3 - Routine Psychiatric Exam Present: normal affect Assessment and Plan (1) Pneumothorax on left Current visit: Yes Status: Acute Category: Medical Code(s): J93.9 - Pneumothorax, unspecified (2) COPD (chronic obstructive pulmonary disease) Current visit: Yes Status: Acute Qualifiers: COPD type: unspecified COPD Qualified Code(s): J44.9 - Chronic obstructive pulmonary disease, unspecified Category: Medical Code(s): J44.9 - Chronic obstructive pulmonary disease, unspecified (3) Tobacco use Current visit: Yes Status: Acute Category: Social Hx Code(s): Z72.0 - Tobacco use - Assessment and plan all Dx Assessment and Plan for all problems:: rounded with Dr Mendez all orders per Dr mendez poss remove chest tube today
--- NOTE | 2020-03-31 14:00 | XR_ITS ---
PROCEDURE: XR CHEST 2V CLINICAL HISTORY: left PTX (chest tube removed) COMPARISON: CXR CHEST(2 VIEWS-NOT PORTABLE) from 02/07/2017 XR CHEST PORTABLE from 03/30/2020 XR CHEST PORTABLE from 03/31/2020 FINDINGS: The left chest tube is been removed. No evidence of recurrence pneumothorax. Subcutaneous gas noted on the left with some interstitial edema present in the left lower lobe and biapical areas of consolidation and pleural thickening not significantly changed. On the lateral view there is an area of lucency in the anterior clear space. There however does appear to be lung markings distal to this region. IMPRESSION: Interval removal of left-sided chest tube. No definite pneumothorax. Subcu air noted on the left with persistent chronic parenchymal opacities in the lung apices patchy infiltrate in the right lung base and interstitial edema in the left lung base Dictated by: Rafael Joseph MD 03/31/2020 14:30 Electronically signed by Rafael Joseph MD in [facility] 03/31/2020 14:30
--- NOTE | 2020-03-31 14:10 | PC.NURSE ---
Pt off floor to radiology.
--- NOTE | 2020-03-31 14:19 | PC.NURSE ---
Pt back from radiology
[2020-03-31 15:05] VITALS: BP 126/42; PULSE 54; RESP 18; TEMP 36.5; O2SAT 100
--- NOTE | 2020-03-31 15:16 | PC.NURSE ---
Pt has been pleasant and cooperative this shift. A&O X4. No complaints of pain or SOA. Chest tube was DC'd this AM and left side chest dressing is noted to be c/d/i. Fine crackles throughout bilateral lungs were heard before chest tube removal. Lung sounds have been clear bilaterally throughout since removal. Pt has remained on room air throughout the shift thus far, and sats. remain >95%. Pt ambulates independently to/from the bathroom and requested to leave the unit. Raymundo was made aware, off-unit consent was signed/placed on chart, and IV was covered completely. No BM thus far this shift. Pt has refused her IV fluids and also refuses MAZIN hose. 20 G peripheral IV remains in place to the RT AC with no s/s of infiltration. VSS. Call light within reach. Will continue to monitor.
[2020-03-31 18:13] VITALS: PULSE 68; PULSE 70; O2SAT 96
--- NOTE | 2020-03-31 18:15 | PC.NURSE ---
RT checked oxygen on room air and it was 96%
[2020-03-31 20:00] VITALS: BP 108/56; PULSE 91; RESP 16; TEMP 36.7; O2SAT 96
--- NOTE | 2020-03-31 23:37 | PC.NURSE ---
She is A&Ox4. DSG on side is C/D/I. She denies SOA, weakness, and dizziness. She ambulates independently. Continues on RA.
[2020-04-01 04:00] VITALS: BP 103/58; PULSE 73; RESP 14; TEMP 36.5; O2SAT 97
[2020-04-01 05:00] VITALS: BMI 21.6
--- NOTE | 2020-04-01 06:00 | XR_ITS ---
PROCEDURE: XR CHEST PORTABLE CLINICAL HISTORY: left PTX Follow-up pneumothorax COMPARISON: CXR CHEST(2 VIEWS-NOT PORTABLE) from 02/07/2017 XR CHEST PORTABLE from 03/30/2020 XR CHEST 2V from 03/31/2020 XR CHEST PORTABLE from 03/31/2020 FINDINGS: No evidence of pneumothorax. There is subcutaneous emphysema along the left lateral chest wall. Chronic biapical fibronodular changes with pleural thickening noted with patchy infiltrate or atelectasis in the right lung base. Mild interstitial edema left lung base. IMPRESSION: Chronic change with no evidence of pneumothorax. There is persistent subcu air along the left lateral chest wall Dictated by: Rafael Joseph MD 04/01/2020 06:52 Electronically signed by Rafael Joseph MD in [facility] 04/01/2020 06:52
[2020-04-01 06:33] VITALS: PULSE 65; O2SAT 93
--- NOTE | 2020-04-01 07:07 | HMH.GSPN ---
Subjective Patient reports: feels better Exam Vital signs and Labs for Last 24 Hours: Temp Pulse Resp BP Pulse Ox 97.7 F 65 14 103/58 L 93 L 04/01/20 04:00 04/01/20 06:33 04/01/20 04:00 04/01/20 04:00 04/01/20 06:33 I & O for Last 24 hours: Intake & Output 03/29/20 03/30/20 03/31/20 04/01/20 11:59 11:59 11:59 11:59 Intake Total 3424 / 3424 1440 / 1440 890 / 890 Output Total 250 / 250 1601 / 1601 390 / 390 850 / 850 Balance -250 / -250 1823 / 1823 1050 / 1050 40 / 40 Weight 115 lb 2 oz 127 lb 7 oz 127 lb 7.011 oz 126 lb 8 oz Microbiology Reports for the Last 24 Hours: Microbiology 03/30/20 06:20 Sputum - Expectorated Sputum Gram Stain - Final 03/30/20 06:20 Sputum - Expectorated Sputum Sputum Culture - Preliminary - Constitutional no acute distress - *Routine Respiratory Exam Absent: respiratory distress - *Routine Cardiovascular Exam Present: RRR Progress Note: A&P (1) Pneumothorax on left Status: Acute Assessment and plan: Chest tube removed yesterday morning. No evidence of pneumothorax on follow-up films Okay from surgical standpoint for discharge with outpatient follow-up. Current Visit: Yes (2) COPD (chronic obstructive pulmonary disease) Status: Acute Current Visit: Yes (3) Tobacco use Status: Acute Current Visit: Yes
[2020-04-01 07:10] LABS: Basophils % 0.5 % (0.1-2.0); Eosinophils # 0.2 K/mm3 (0.0-0.4); Hemoglobin 10.6 g/dL (12.2-16.2); Lymphocytes # 1.8 K/mm3 (0.7-4.5); Lymphocytes % 25.6 % (10-50); Mean Corpuscular HGB Conc 33.2 g/dL (31.8-35.4); Mean Corpuscular Hemoglobin 29.3 pg (27.0-31.2); Mean Corpuscular Volume 88.4 fl (81-99); Mean Platelet Volume 8.7 fl (7.4-10.4); Monocytes # 0.5 K/mm3 (0.1-1.0); Monocytes % 7.5 % (1.7-9.3); Neutrophils # 4.4 K/mm3 (1.8-7.8); Neutrophils % 63.3 % (37.0-80.0); Platelet Count 260 K/mm3 (142-424); Red Blood Count 3.62 M/mm3 (4.20-5.40); Red Cell Distribution Width 14.3 % (11.5-17.5); White Blood Count 6.9 K/mm3 (4.8-10.8)
[2020-04-01 07:11] LABS: Chloride 108 mmol/L (98-107); Potassium 3.5 mmoL/L (3.5-5.1); Sodium 138 mmol/L (136-145)
[2020-04-01 07:14] LABS: Blood Urea Nitrogen 5 mg/dl (7-17); Creatinine Clearance Estimated 104 mL/min (50-200); Estimated Glomerular Filt Rate 107 ml/min (>60); GFR (African American) 129 ML/MIN (>60)
[2020-04-01 07:15] LABS: Anion Gap 6.5 mEq/L (5-15); Carbon Dioxide 27 mmol/L (22.0-30.0)
[2020-04-01 07:21] LABS: Calcium 7.8 mg/dl (8.4-10.2); Glucose 92 mg/dl (74-100)
[2020-04-01 08:00] VITALS: BP 108/54; PULSE 80; RESP 18; TEMP 36.6; O2SAT 99
--- NOTE | 2020-04-01 08:59 | HMH.DCSUM ---
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 She does have a history of a spontaneous right pneumothorax years past, when it failed to resolve a video-assisted thorascopic surgery was needed and performed. Chest x-ray in ER revealed a left-sided pneumothorax, general surgery was consulted General surgery placed a left-sided chest tube 03/28/2020: Consent was obtained. Patient was positioned in supine position. Left chest was prepped and draped in the standard surgical fashion. Local anesthetic was infiltrated. Approximately 1-1/2 cm incision was made. Dissection was carried down using blunt dissection with spreading of the intercostal muscles bluntly entering the pleural space over the anterior lateral rib. There was a leon of air. 24 [place] thoracostomy tube was inserted and manipulated anteriorly to approximately the [address] It was secured at the skin with 0 silk suture. Dressing was applied. Thoracostomy tube was secured to the Pleur-evac and airleak appeared to resolve quickly. Post procedure chest x-ray revealed good placement with good lung reexpansion. Hospital Course Hospital Course: Microbiology 03/30/20 06:20 Sputum - Expectorated Sputum Gram Stain - Final 03/30/20 06:20 Sputum - Expectorated Sputum Sputum Culture - Preliminary Laboratory Tests 03/28/20 03/28/20 03/28/20 21:06 21:06 21:06 WBC 9.5 RBC 4.35 Hgb 12.8 Hct 38.9 MCV 89.3 MCH 29.5 MCHC 33.0 RDW 14.0 Plt Count 357 MPV 8.3 Neut % (Auto) 63.7 Lymph % (Auto) 27.9 [place] % (Auto) 6.6 Eos % (Auto) 1.3 Baso % (Auto) 0.5 Neut # (Auto) 6.0 Lymph # (Auto) 2.6 [place] # (Auto) 0.6 Eos # (Auto) 0.1 Baso # (Auto) 0.1 ESR 16 Sodium 138 Potassium 3.7 Chloride 104 Carbon Dioxide 28 Anion Gap 9.7 BUN 8 Creatinine 0.70 Estimated Creat Clear 81 Estimated GFR 89 Est GFR ( Amer) 108 Glucose 133 H Calcium 8.9 Magnesium Total Bilirubin 0.4 Direct Bilirubin 0.3 Conjugated Bilirubin 0.0 Indirect Bilirubin 0.1 Unconjugated Bilirubin 0.2 AST 25 ALT 12 Alkaline Phosphatase 116 Troponin I < 0.01 C-Reactive Protein 8.9 H Total Protein 7.9 Albumin 4.2 03/29/20 03/29/20 03/30/20 06:05 06:05 07:08 WBC 11.6 H 8.1 D RBC 3.66 L 3.63 L Hgb 10.8 L D 10.8 L Hct 32.4 L 32.8 L MCV 88.4 90.5 MCH 29.5 29.6 MCHC 33.4 32.8 RDW 14.1 14.3 Plt Count 277 260 MPV 8.2 8.7 Neut % (Auto) 83.2 H 75.2 Lymph % (Auto) 11.4 17.5 [place] % (Auto) 4.8 5.3 Eos % (Auto) 0.4 1.7 Baso % (Auto) 0.3 0.3 Neut # (Auto) 9.7 H 6.1 Lymph # (Auto) 1.3 1.4 [place] # (Auto) 0.6 0.4 Eos # (Auto) 0.1 0.1 Baso # (Auto) 0.0 0.0 ESR Sodium 136 Potassium 3.9 Chloride 109 H Carbon Dioxide 25 Anion Gap 5.9 BUN 7 Creatinine 0.60 Estimated Creat Clear 95 Estimated GFR 107 Est GFR ( Amer) 129 Glucose 106 H D Calcium 7.8 L D Magnesium 2.0 Total Bilirubin Direct Bilirubin Conjugated Bilirubin Indirect Bilirubin Unconjugated Bilirubin AST ALT Alkaline Phosphatase Troponin I C-Reactive Protein Total Protein Albumin 03/30/20 04/01/20 04/01/20 07:08 06:45 06:45 WBC 6.9 RBC 3.62 L Hgb 10.6 L Hct 32.0 L MCV 88.4 MCH 29.3 MCHC 33.2 RDW 14.3 Plt Count 260 MPV 8.7 Neut % (Auto) 63.3 Lymph % (Auto) 25.6 [place] % (Auto) 7.5 Eos % (Auto) 3.0 Baso % (Auto) 0.5 Neut # (Auto) 4.4 Lymph # (Auto) 1.8 [place] # (Auto)
--- NOTE | 2020-04-01 10:44 | PC.NURSE ---
PT INSTRUCTED TO HAVE TB SKIN TEST READ BETWEEN 04/03-04/04/2020 BY 0930
--- NOTE | 2020-04-04 11:55 | PC.NURSE ---
tb skin test read per mary aranda rn. 0 MM DURATION.
== END 2020-04-01 09:35 | disposition home or self-care (01) | DRG 201 ==
LOC: ER 21:58 → 2ND 23:20
PROVIDERS: Nurse Practitioner Family; Admitting Provider Emergency Medicine; Emergency Provider Emergency Medicine; PCP Emergency Medicine; Visit Provider Emergency Medicine
DX: J93.11 Primary spontaneous pneumothorax (principal); Z72.0 Tobacco use; J44.9 Chronic obstructive pulmonary disease, unspecified
CPT/HCPCS: 32551; 36415; 71045; 71046; 80048; 80076; 83735; 84484; 85025; 85651; 86140; 86580; 87070; 87205; 93005; 94640; 94761; 96365; 96375; 99284

== ENCOUNTER → 2020-04-08 14:10 | Outpatient (CLI) | payer BC, SELFPAY ==
--- NOTE | 2020-04-08 14:18 | XR_ITS ---
PROCEDURE: XR CHEST 2V CLINICAL HISTORY: pneumothorax COMPARISON: 04/01/2020 FINDINGS: Biapical pleural parenchymal scarring is again noted. There is no evidence of pneumothorax. Soft tissues are intact. The cardiac let is unremarkable. IMPRESSION: Stable biapical pleural-parenchymal scarring, no pneumothorax. Dictated by: Kvng Mack 04/08/2020 14:37 Electronically signed by Kvng Mack in [facility] 04/08/2020 14:37
[2020-04-10 11:12] LABS: Alpha-1-Antitrypsin 201 mg/dL (101-187)
== END ==
PROVIDERS: PCP Family Medicine; Visit Provider Surgery
DX: J93.9 Pneumothorax, unspecified (principal)
CPT/HCPCS: 36415; 71046; 82103

== ENCOUNTER → 2020-05-02 11:54 | Outpatient (CLI) | payer BC, SELFPAY ==
--- NOTE | 2020-05-02 11:59 | XR_ITS ---
PROCEDURE: XR CHEST 2V CLINICAL INDICATION: please call report STAT Recent collapsed lung, shortness of air, smoker COMPARISON: CXR CHEST(2 VIEWS-NOT PORTABLE) from 02/07/2017 XR CHEST PORTABLE from 03/28/2020 XR CHEST 2V from 03/28/2020 XR CHEST 2V from 03/31/2020 XR CHEST PORTABLE from 04/01/2020 XR CHEST 2V from 04/08/2020 FINDINGS: There is biapical pleural thickening right more extensive than left with underlying parenchymal opacification suggesting biapical pleural parenchymal scarring. This is not significantly changed. There is no evidence of pneumothorax. The lower lobes are clear. No acute bony findings. IMPRESSION: Stable biapical pleural parenchymal opacification/scarring. No evidence of pneumothorax. Dictated by: Rafael Joseph MD 05/02/2020 12:23 Electronically signed by Rafael Joseph MD in [facility] 05/02/2020 12:23
== END ==
PROVIDERS: PCP Family Medicine; Visit Provider Family Medicine
DX: J93.9 Pneumothorax, unspecified (principal)
CPT/HCPCS: 71046

== ENCOUNTER → 2020-05-23 13:57 | Outpatient (CLI) | payer BC, SELFPAY ==
--- NOTE | 2020-05-23 14:01 | XR_ITS ---
PROCEDURE: XR CHEST 2V CLINICAL HISTORY: COPD COMPARISON: CR XR CHEST PORTABLE from 04/01/2020 CR XR CHEST 2V from 04/08/2020 CR XR CHEST 2V from 05/02/2020 FINDINGS: The cardiomediastinal silhouette and pulmonary vascularity are within normal limits. Changes of COPD. Pleural parenchymal opacification is once again noted involving the right apex and to lesser degree in the left apex. These findings are not significantly changed from 05/02/2020. There is faint nodular opacity in the right mid upper lung zone measuring approximately 8 mm which is not readily apparent dating back to 03/29/2020. No acute bony abnormalities. IMPRESSION: Extensive biapical pleural parenchymal chronic changes. There is a right upper lobe nodule which appears to be developing in the suprahilar region. CT may provide further evaluation. Dictated b Rafael Joseph MD 05/23/2020 14:45 Rafael Joseph MD in [facility] 05/23/2020 14:45
== END ==
PROVIDERS: PCP Family Medicine; Visit Provider Family Medicine
DX: J44.9 Chronic obstructive pulmonary disease, unspecified (principal)
CPT/HCPCS: 71046

== ENCOUNTER → 2020-06-10 10:13 | Outpatient (CLI) | payer BC, SELFPAY ==
--- NOTE | 2020-06-10 10:13 | CT_ITS ---
PROCEDURE: CT CHEST WO/W CON CLINCAL INDICATION: copd, lesion at rul, recurrent ptx COPD, LESION AT RUL, RECURRENT PNX. SMOKER COMPARISON: CR CXR CHEST(2 VIEWS-NOT PORTABLE) from 02/07/2017 CR XR CHEST 2V from 05/23/2020 TECHNIQUE: IV Contrast: 75ml Optiray 350 Axial images obtained with sagittal and coronal reformats. All CT scans at the facility use one or more dose reduction, viz: automated exposure control, ma/kV adjustment per patient size (including targeted exams where dose is matched to indication, i.e. head), or iterative reconstruction technique. FINDINGS: HEART AND MEDIASTINAL STRUCTURES: No mediastinal or hilar mass or adenopathy. No evidence of aortic aneurysm, dissection or central pulmonary embolus. LUNGS AND PLEURAL SPACES: There are multiple bilateral apical areas of cavitation with thick torres with at least 1 air-fluid level in the right apex. Bullous changes are also noted in the upper lobes. There are numerous noncalcified small pulmonary nodules in both upper lobes and the superior aspect of the lower lobes. Largest nodule measures approximately 10 mm and is in the superior segment of the right lower lobe anteriorly abutting the major fissure. Small thick-walled cavity also noted in the superior segment of the right lower lobe posterior medially with scattered small nodules in this area. There are small nodular lesions in the left lower lobe anteriorly. There are no effusions. No areas airspace consolidation. BONY STRUCTURES: No acute bony abnormalities apparent. 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 IMPRESSION: 1. There are bilateral areas of thick-walled cavitation mainly in the lung apices more extensive on the right compared to the left with thick wall cavity also noted in the superior segment of the right lower lobe. At least 1 air-fluid levels present in the right apex. These findings may be seen with tuberculosis or histoplasmosis. Consider pulmonology consult. 2. Numerous noncalcified pulmonary nodules. These may be due to either inflammatory/infectious process or metastatic disease.. Dictated by: Rafael Joseph MD 06/11/2020 08:01 Rafael Joseph MD in [facility] 06/11/2020 08:01
== END ==
PROVIDERS: PCP Family Medicine; Visit Provider Family Medicine
DX: R93.89 Abnormal findings on diagnostic imaging of other specified body structures (principal)
CPT/HCPCS: 71270; Q9967

== ENCOUNTER → 2020-06-13 11:06 | Outpatient (CLI) | payer BC, SELFPAY ==
[2020-06-13 11:10] LABS: MANUAL DIFFERENTIAL MANUAL DIFFERENTIAL (MANUAL DIFF)
[2020-06-13 11:46] LABS: Basophils # 0.1 K/mm3 (0-0.2); Basophils % 0.5 % (0.1-2.0); Eosinophils # 0.2 K/mm3 (0.0-0.4); Eosinophils % 2.1 % (0.1-12.0); Hematocrit 40.5 % (37.0-47.0); Hemoglobin 13.3 g/dL (12.2-16.2); Lymphocytes # 1.6 K/mm3 (0.7-4.5); Lymphocytes % 16.8 % (10-50); Mean Corpuscular HGB Conc 32.7 g/dL (31.8-35.4); Mean Corpuscular Hemoglobin 29.1 pg (27.0-31.2); Mean Corpuscular Volume 89.1 fl (81-99); Mean Platelet Volume 8.1 fl (7.4-10.4); Monocytes # 0.6 K/mm3 (0.1-1.0); Monocytes % 6.2 % (1.7-9.3); Neutrophils # 6.8 K/mm3 (1.8-7.8); Neutrophils % 74.4 % (37.0-80.0); Platelet Count 357 K/mm3 (142-424); Red Blood Count 4.55 M/mm3 (4.20-5.40); Red Cell Distribution Width 14.1 % (11.5-17.5); White Blood Count 9.2 K/mm3 (4.8-10.8)
[2020-06-13 12:05] LABS: Lymphocytes % 17 % (10-50); Monocytes % 4 % (2-9); Neutrophils % 77 % (42-76); Total Cells Counted 100
[2020-06-13 12:06] LABS: Platelet Estimate Normal; RBC Morphology Normal
[2020-06-13 12:25] LABS: Lactate Dehydrogenase 220 U/L (313-618)
[2020-06-13 13:33] LABS: INR 1.04 (0.9-1.1); Prothrombin Time 10.7 seconds (9.4-11.8)
[2020-06-15 06:40] LABS: Alpha-1-Antitrypsin 190 mg/dL (101-187)
[2020-06-15 15:28] LABS: Histoplasma Gal'mannan Ag Ur <0.5 (<0.5 ng/mL)
[2020-06-16 10:03] LABS: QuantiFERON-TB Gold Plus Negative (Negative)
[2020-06-16 23:35] LABS: Aspergillus flavus Negative (Neg:<1:1); Aspergillus fumigatus Negative (Neg:<1:1); Aspergillus niger Negative (Neg:<1:1); Blastomyces Antibody Negative (Neg:<1:1)
== END ==
PROVIDERS: Visit Provider Internal Medicine Pulmonary Disease
DX: R93.89 Abnormal findings on diagnostic imaging of other specified body structures (principal); J84.10 Pulmonary fibrosis, unspecified; J18.9 Pneumonia, unspecified organism; J98.4 Other disorders of lung
CPT/HCPCS: 36415; 82103; 83615; 85007; 85014; 85018; 85048; 85049; 85610; 86480; 86606; 86612; 86698; 87070; 87077; 87116; 87186; 87205; 87206; 87385

== ENCOUNTER 2021-05-05 09:52 | Emergency (ER) | payer BC, SELFPAY ==
[2021-05-05] VITALS (7 sets, daily range): BP systolic 100–121; BP diastolic 61–85; PULSE 67–103; RESP 12–17; TEMP 36.7–36.8; O2SAT 97–100; BMI 19.7
--- NOTE | 2021-05-05 10:07 | XR_ITS ---
PROCEDURE: XR CHEST PORTABLE CLINICAL HISTORY: cough COMPARISON: CR XR CHEST 2V from 04/08/2020 CR XR CHEST 2V from 05/02/2020 CR XR CHEST 2V from 05/23/[address] CHEST WO/W CON from 06/10/2020 FINDINGS: The cardiomediastinal silhouette and pulmonary vascularity are within normal limits. Bilateral apical pleural and parenchymal scarring with the evidence of lung retraction is noted, worse on the right demonstrate no significant interval change compared to the prior study. There is a focal nodular appearing density noted in the right upper zone, again noted, marginally increased in size compared to the chest x-ray of May 23, 2020. Trace right effusion is noted. Visualized osseous structures are unremarkable. IMPRESSION: Nodular appearing density in the right upper zone, marginally increased compared to the prior study. CT scan of the thorax with contrast is recommended for further evaluation. Dictated by: Shayy Coello 05/05/2021 10:30 Shayy Coello in [facility] 05/05/2021 10:30
--- NOTE | 2021-05-05 10:13 | PC.NURSE ---
Rad at bedside.
--- NOTE | 2021-05-05 10:19 | ECG_ITS ---
APPROVED REPORT Exam: Resting ECG HR:79 bpm ECG Measurements Heart Rate 79 AXES MD 132 P 84 QRSd 66 QRS 79 QT 384 T 77 QTc 440 Conclusion Normal sinus rhythm Right atrial enlargement Poor r wave progression, unchanged from prior Abnormal ECG Electronically signed by : Delvis Soliman, 05/06/2021 15:20:09
--- NOTE | 2021-05-05 10:30 | HMH.EDBACK ---
ED Disposition Clinical Impression: Thoracic myofascial strain Qualifiers: Encounter type: initial encounter Qualified Code(s): S29.019A - Strain of muscle and tendon of unspecified wall of thorax, initial encounter Disposition: Home, Self-Care Condition on Discharge: Good Instructions: DI for Thoracic Back Pain Prescriptions: methocarbamoL [Methocarbamol 500mg Tablet] 500 mg PO QID 7 Days #28 tab Transmission Status: Pending to [id number] Referrals: Paul Ann MD [Primary Care Provider] - - Critical Care Critical Care Time: No Attestation: On 05/05/21, the high probability of a clinically significant, sudden or life threatening deterioration of the following system(s) required my full and direct attention, intervention and personal management. The time I documented below is in addition to time spent performing reported procedures but includes the following listed in this critical care notation. Medical Decision Making - Medical Records Medical records reviewed: Yes: I reviewed the patient's medical records. - Juanpablo Inquiry Pt receiving controlled substance: No Vital Signs: 05/05/21 09:54 05/05/21 10:01 05/05/21 10:30 Temperature 98.1 F Temperature Source Oral Pulse Rate 97 H Pulse Rate [Right] 103 H Respiratory Rate 16 17 12 Blood Pressure 113/85 121/75 Blood Pressure [Right Arm] 113/85 Blood Pressure Mean 96 90 Blood Pressure Mean [Right Arm] 94 02 Sat by Pulse Oximetry 97 100 05/05/21 11:26 Temperature Temperature Source Pulse Rate 78 Pulse Rate [Right] Respiratory Rate 17 Blood Pressure 110/65 Blood Pressure [Right Arm] Blood Pressure Mean 73 Blood Pressure Mean [Right Arm] 02 Sat by Pulse Oximetry 99 - Lab Data Lab Results 05/05/21 10:30: WBC 8.0, RBC 4.48, Hgb 12.3, Hct 36.9 L, MCV 82.4, MCH 27.4, MCHC 33.2, RDW 15.0, Plt Count 355, MPV 8.1, Neut % (Auto) 68.9, Lymph % (Auto) 24.0, [place] % (Auto) 5.3, Eos % (Auto) 1.2, Baso % (Auto) 0.5, Neut # (Auto) 5.5, Lymph # (Auto) 1.9, [place] # (Auto) 0.4, Eos # (Auto) 0.1, Baso # (Auto) 0.0 05/05/21 10:30: Sodium 139, Potassium 3.6, Chloride 103, Carbon Dioxide 28, Anion Gap 11.6, BUN 7, Creatinine 0.60, Estimated Creat Clear 93, Estimated GFR 106, Est GFR ( Amer) 129, Glucose 110 H, Calcium 9.0, Total Bilirubin 0.5, AST 24, ALT 13, Alkaline Phosphatase 132 H, Troponin I < 0.01, Total Protein 8.1, Albumin 4.3, Globulin 3.8 H, Albumin/Globulin Ratio 1.1 Result diagrams: 05/05/21 10:30 05/05/21 10:30 Orders (Tests/Meds): ED MEDICATIONS Discontinued Medications Generic Name Dose Route Start Last Admin Trade Name Freq PRN Reason Stop Dose Admin Iopamidol 75 ml 05/05/21 11:30 05/05/21 11:30 Iopamidol-370 (76%);100ml Bottle IV 05/05/21 11:31 75 ml ONCE ONE Administration Sodium Chloride 10 ml 05/05/21 11:30 05/05/21 11:30 Sodium Chloride 0.9% 10ml Syr (Rad Only) IV 05/05/21 11:31 10 ml ONCE ONE Administration ORDERS Category Date Time Status Troponin I Q3H Lab 05/05/21 13:15 Ordered Troponin I Q3H Lab 05/05/21 16:15 Ordered - Radiology Data #1 Image(s): Chest Image Reviewed: Yes I reviewed the patient's radiology results, Yes I reviewed the patient's radiology image, Yes I have reviewed radiologist's interpretation IMPRESSION: Nodular appearing density in the right upper zone, marginally increased compared to the prior study. CT scan of the thorax with contrast is recommended for further evaluation. - CT Data CT Scan: Chest Time Received: 12:[address] Reviewed: Yes: I have reviewed the patient's CT results, I have viewed the radiologist's interpretation Findings Narrative: IMPRESSION: Increase in the size of the sub pleural fissural right upper lobe nodule, now measuring 1.5 centimeters with minor spiculations. PET-CT should be considered for further evaluation. Bilateral upper lobe cavitating areas with the scarring and lung
[2021-05-05 10:38] LABS: Basophils % 0.5 % (0.1-2.0); Eosinophils # 0.1 K/mm3 (0.0-0.4); Eosinophils % 1.2 % (0.1-12.0); Hematocrit 36.9 % (37.0-47.0); Hemoglobin 12.3 g/dL (12.2-16.2); Lymphocytes # 1.9 K/mm3 (0.7-4.5); Mean Corpuscular HGB Conc 33.2 g/dL (31.8-35.4); Mean Corpuscular Hemoglobin 27.4 pg (27.0-31.2); Mean Corpuscular Volume 82.4 fl (81-99); Mean Platelet Volume 8.1 fl (7.4-10.4); Monocytes # 0.4 K/mm3 (0.1-1.0); Monocytes % 5.3 % (1.7-9.3); Neutrophils # 5.5 K/mm3 (1.8-7.8); Neutrophils % 68.9 % (37.0-80.0); Platelet Count 355 K/mm3 (142-424); Red Blood Count 4.48 M/mm3 (4.20-5.40)
--- NOTE | 2021-05-05 10:41 | CT_ITS ---
PROCEDURE: CT CHEST W CON CLINCAL INDICATION: mass COMPARISON: June 10, 2020 TECHNIQUE: IV Contrast: 75ml Isovue 370 CT chest with axial, coronal, and sagittal multiplanar reformations, performed with contrast. Dose modulation, automated exposure control, and/or iterative reconstruction were used for dose reduction. FINDINGS: LUNGS:There is a subpleural spiculated appearing density noted in the right lower lobe measuring 1.6 times 1 point 8 centimeters. This appears to have marginally increased in size compared to the prior study. Extensive bilateral parenchymal parenchymal scarring with areas of cavitation and thick wall is noted in the bilateral lung apices. This demonstrates no significant interval change compared to the prior study. There is focal subpleural soft tissue density noted abutting the posterior pleura in the right lower lobe measuring 1.4 x 1.5 centimeters with areas of cavitation, demonstrates no interval change compared to prior study. Focal areas of cavitating lesion noted in the left upper lobe measuring up to 1.5 centimeters is noted, new compared to the prior study. Multifocal areas of tree-in-bud appearance is noted in the lungs bilaterally. These may be secondary to minor infectious/inflammatory process. Extensive centrilobular and paraseptal emphysematous changes are noted. Bullae are noted in bilateral lower lobes. No lobar consolidation. No evidence of pleural effusions or pneumothorax. Airway: Mild loss of tapering of bilateral of bronchials are noted, may represent [id number] airway disease. HEART / [employer] Heart:The heart is normal size without pericardial effusion. Vessels: The thoracic aorta is unremarkable. MEDIASTINUM Mediastinum: There is no hilar or mediastinal lymphadenopathy. UPPER ABDOMEN: Abdomen mild fatty infiltration of the liver is noted. Otherwise the visualized upper abdominal solid organs are unremarkable within the limitations of phase BONES Bones: Visualized osseous structures are unremarkable. Thyroid: The visualized thyroid gland is unremarkable Other IMPRESSION: Increase in the size of the sub pleural fissural right upper lobe nodule, now measuring 1.5 centimeters with minor spiculations. PET-CT should be considered for further evaluation. Bilateral upper lobe cavitating areas with the scarring and lung retraction are again noted, some of which are new compared to the prior study. Prior granulomatous disease versus pneumoconiosis should be considered. Dictated by: Shayy Coello 05/05/2021 12:11 Shayy Coello in [facility] 05/05/2021 12:11
[2021-05-05 10:42] LABS: Chloride 103 mmol/L (98-107)
[2021-05-05 10:43] LABS: Potassium 3.6 mmoL/L (3.5-5.1); Sodium 139 mmol/L (136-145)
[2021-05-05 10:45] LABS: Alanine Aminotransferase 13 U/L (12-78); Alkaline Phosphatase 132 U/L (38-126); Aspartate Amino Transferase 24 U/L (14-36); Bilirubin,Total 0.5 mg/dl (0.2-1.3); Blood Urea Nitrogen 7 mg/dl (7-17); Creatinine Clearance Estimated 93 mL/min (50-200); Estimated Glomerular Filt Rate 106 ml/min (>60); GFR (African American) 129 ML/MIN (>60)
[2021-05-05 10:46] LABS: Albumin Level 4.3 g/dl (3.5-5.0); Albumin/Globulin Ratio 1.1 (1.1-1.8); Anion Gap 11.6 mEq/L (5-15); Carbon Dioxide 28 mmol/L (22.0-30.0); Globulin 3.8 g/dL (1.3-3.2); Glucose 110 mg/dl (74-100); Total Protein,Serum 8.1 g/dl (6.3-8.2)
--- NOTE | 2021-05-05 10:52 | PC.NURSE ---
pt going to rad.
[2021-05-05 10:59] LABS: Troponin I < 0.01 ng/ml (0.00-0.034)
--- NOTE | 2021-05-05 11:24 | PC.NURSE ---
pt returning from rad.
== END 2021-05-05 12:59 | disposition home or self-care (01) ==
PROVIDERS: Emergency Provider Emergency Medicine; PCP Family Medicine
DX: S29.019A Strain of muscle and tendon of unspecified wall of thorax, initial encounter (principal); X50.3XXA Overexertion from repetitive movements, initial encounter; J44.9 Chronic obstructive pulmonary disease, unspecified; K21.9 Gastro-esophageal reflux disease without esophagitis; F17.210 Nicotine dependence, cigarettes, uncomplicated; Z88.0 Allergy status to penicillin
CPT/HCPCS: 71045; 71260; 80053; 84484; 85025; 93005; 99283; Q9967

== ENCOUNTER → 2022-06-26 10:51 | Outpatient (CLI) | payer BC, SELFPAY ==
[2022-06-26 11:58] LABS: Basophils # 0.1 K/mm3 (0-0.2); Basophils % 0.7 % (0.1-2.0); Eosinophils # 0.1 K/mm3 (0.0-0.4); Eosinophils % 0.5 % (0.1-12.0); Hematocrit 36.9 % (37.0-47.0); Hemoglobin 11.5 g/dL (12.2-16.2); Mean Corpuscular HGB Conc 31.1 g/dL (31.8-35.4); Mean Corpuscular Hemoglobin 24.8 pg (27.0-31.2); Mean Corpuscular Volume 79.7 fl (81-99); Mean Platelet Volume 8.2 fl (7.4-10.4); Monocytes # 0.6 K/mm3 (0.1-1.0); Monocytes % 6.3 % (1.7-9.3); Neutrophils # 6.1 K/mm3 (1.8-7.8); Neutrophils % 69.4 % (37.0-80.0); Platelet Count 515 K/mm3 (142-424); Red Blood Count 4.63 M/mm3 (4.20-5.40); Red Cell Distribution Width 17.4 % (11.5-17.5); White Blood Count 8.8 K/mm3 (4.8-10.8)
[2022-06-26 13:10] LABS: Chloride 97 mmol/L (98-107); Potassium 4.9 mmoL/L (3.5-5.1); Sodium 139 mmol/L (136-145)
[2022-06-26 13:13] LABS: Alanine Aminotransferase 6 U/L (12-78); Albumin Level 3.9 g/dl (3.5-5.0); Albumin/Globulin Ratio 1.1 (1.1-1.8); Alkaline Phosphatase 158 U/L (38-126); Anion Gap 16.9 mEq/L (5-15); Aspartate Amino Transferase 20 U/L (14-36); Bilirubin,Total 0.7 mg/dl (0.2-1.3); Blood Urea Nitrogen 6 mg/dl (7-17); Carbon Dioxide 30 mmol/L (22.0-30.0); Estimated Glomerular Filt Rate 106 ml/min (>60); GFR (African American) 128 ML/MIN (>60); Globulin 3.7 g/dL (1.3-3.2); Total Protein,Serum 7.6 g/dl (6.3-8.2)
[2022-06-26 13:14] LABS: Calcium 8.7 mg/dl (8.4-10.2); Glucose 100 mg/dl (74-100)
[2022-06-26 13:44] LABS: Thyroid Stimulating Hormone 2.55 uIU/mL (0.465-4.68)
== END ==
PROVIDERS: PCP Family Medicine; Visit Provider Family Medicine
DX: R93.89 Abnormal findings on diagnostic imaging of other specified body structures (principal)
CPT/HCPCS: 36415; 80053; 84443; 85025

== ENCOUNTER → 2022-07-02 13:43 | Outpatient (CLI) | payer BC, SELFPAY ==
--- NOTE | 2022-07-02 13:46 | CT_ITS ---
FINAL REPORT CLINICAL HISTORY: right atypical lesion COMPARISON: June 10, 2020 FINDINGS: CT CHEST ABDOMEN AND PELVIS WITHCONTRAST TECHNIQUE: Axial CT images were performed through the chest with IV contrast. Coronal reformatted images were submitted. This study was performed with techniques to keep radiation doses as low as reasonably achievable (ALARA). Individualized dose reduction techniques using automated exposure control or adjustment of mA and/or kV according to the patient's size were employed. CHEST: There is no axillary adenopathy. There is no hilar or mediastinal adenopathy. The heart size is normal. There is no pericardial or pleural effusion. On the lung joint window images there are extensive changes of lobular emphysema in both upper upper lobes. There is right apical bronchiectasis. There is a mass in the right perihilar region measuring 3.4 x 3.1 cm. It is new or increased in size from the prior exam and is highly concerning for neoplasm. It is well seen on series 2, image 30. There is a pleural based nodule posteriorly on the right measuring 1.2 cm which appears increased in size from the previous exam. This is well seen on image 34 series 2 There are multitude of bilateral noncalcified nodules which appear essentially stable. Images of the upper abdomen are unremarkable. IMPRESSION: New or increased in size large right perihilar nodule measuring up to 3.4 cm which is highly concerning for neoplasia. Tissue sampling is recommended. Biapical bulla formation with pleural thickening and bronchiectasis. PET scan may be of value to better document the full extent of disease. Reviewed, Interpreted and Dictated by José Luis Childers MD Transcribed by Cuca Chase Authenticated and [facility]
== END ==
PROVIDERS: PCP Family Medicine; Visit Provider Family Medicine
DX: L81.9 Disorder of pigmentation, unspecified (principal)
CPT/HCPCS: 71260; Q9967

== ENCOUNTER → 2022-07-19 11:43 | Outpatient (CLI) | payer BC, SELFPAY ==
[2022-07-19 12:17] LABS: Basophils # 0.2 K/mm3 (0-0.2); Basophils % 1.6 % (0.1-2.0); Eosinophils # 0.1 K/mm3 (0.0-0.4); Eosinophils % 0.5 % (0.1-12.0); Hematocrit 32.6 % (37.0-47.0); Hemoglobin 10.6 g/dL (12.2-16.2); Lymphocytes # 1.3 K/mm3 (0.7-4.5); Lymphocytes % 13.9 % (10-50); Mean Corpuscular HGB Conc 32.4 g/dL (31.8-35.4); Mean Corpuscular Hemoglobin 25.6 pg (27.0-31.2); Mean Corpuscular Volume 78.9 fl (81-99); Mean Platelet Volume 7.8 fl (7.4-10.4); Monocytes # 0.7 K/mm3 (0.1-1.0); Monocytes % 7.5 % (1.7-9.3); Neutrophils # 7.3 K/mm3 (1.8-7.8); Neutrophils % 76.5 % (37.0-80.0); Platelet Count 458 K/mm3 (142-424); Red Blood Count 4.13 M/mm3 (4.20-5.40); Red Cell Distribution Width 17.3 % (11.5-17.5); White Blood Count 9.5 K/mm3 (4.8-10.8)
[2022-07-19 12:30] LABS: INR 1.06 (0.9-1.1); Prothrombin Time 11.4 seconds (10.1-12.5)
[2022-07-19 13:13] LABS: Alanine Aminotransferase 8 U/L (12-78); Albumin Level 3.6 g/dl (3.5-5.0); Anion Gap 12.1 mEq/L (5-15); Aspartate Amino Transferase 19 U/L (14-36); Bilirubin,Total 0.3 mg/dl (0.2-1.3); Blood Urea Nitrogen 9 mg/dl (7-17); Calcium 8.7 mg/dl (8.4-10.2); Carbon Dioxide 29 mmol/L (22.0-30.0); Chloride 95 mmol/L (98-107); Estimated Glomerular Filt Rate 131 ml/min (>60); GFR (African American) 158 ML/MIN (>60); Globulin 3.5 g/dL (1.3-3.2); Glucose 89 mg/dl (74-100); Potassium 4.1 mmoL/L (3.5-5.1); Sodium 132 mmol/L (136-145); Total Protein,Serum 7.1 g/dl (6.3-8.2)
[2022-07-19 13:14] LABS: Alkaline Phosphatase 170 U/L (38-126)
[2022-07-19 13:19] LABS: C-Reactive Protein 66.3 mg/L (0-4)
[2022-07-21 20:08] LABS: QuantiFERON-TB Gold Plus Negative (Negative)
[2022-07-23 17:12] LABS: Histoplasma Gal'mannan Ag Ur <0.5 (<0.5 ng/mL)
== END ==
PROVIDERS: PCP Family Medicine; Visit Provider Internal Medicine Pulmonary Disease
DX: Z01.812 Encounter for preprocedural laboratory examination (principal); R06.09 Other forms of dyspnea; J45.909 Unspecified asthma, uncomplicated; J84.9 Interstitial pulmonary disease, unspecified; J98.4 Other disorders of lung
CPT/HCPCS: 36415; 80053; 85025; 85610; 86140; 86480; 87385

== ENCOUNTER → 2022-07-20 16:23 | Outpatient (CLI) | payer BC, SELFPAY ==
[2022-07-25 22:08] LABS: Aspergillus flavus Negative (Neg:<1:1); Aspergillus fumigatus Negative (Neg:<1:1); Aspergillus niger Negative (Neg:<1:1); Blastomyces Antibody Negative (Neg:<1:1)
== END ==
PROVIDERS: PCP Family Medicine; Visit Provider Internal Medicine Pulmonary Disease
DX: J84.10 Pulmonary fibrosis, unspecified (principal); J18.9 Pneumonia, unspecified organism
CPT/HCPCS: 86606; 86612; 87070; 87116; 87186; 87205; 87206; 87220

== ENCOUNTER 2022-07-30 09:10 | Day surgery (SDC) | payer BC, SELFPAY ==
--- NOTE | 2022-07-27 13:33 | SUR.PREOP ---
Attempted preop phone call, no answer. Message left w/ call back number.
[2022-07-27 14:17] VITALS: BMI 15.6
[2022-07-30] VITALS (9 sets, daily range): BP systolic 101–135; BP diastolic 43–76; PULSE 83–100; RESP 16–22; TEMP 36.6–36.8; O2SAT 92–99
[2022-07-30 10:04] LABS: Urine Pregnancy, HCG Qual. Negative (Negative)
--- NOTE | 2022-07-30 12:14 | EXP.ANES.CKL ---
PFSH PFS Medical History Anxiety Bronchitis Cavitary lesion of lung COPD (chronic obstructive pulmonary disease) Dyspnea on exertion Lung nodule Pneumonia Pulmonary emphysema Surgical History History of lung surgery Family History Father Emphysema lung COPD (chronic obstructive pulmonary disease) Other Family history of TIAs Family history of hyperlipidemia Family history of hypertension Social History Smoking Status: Current every day smoker tobacco type: cigarettes packs per day: 1 years smoked: 30 second hand exposure: Yes alcohol intake: never substance use type: marijuana current occupational status: unemployed Travel in the last 8 weeks: None household members: none housing: house current occupation: [employer] current occupational exposures/hazards: No caffeine: Yes [facility] Anesthesia Checklist Patient Identification Patient Identification: Arm Band and Verbal (Name & ) Structural Data Admitted From: Home Planned Operative Procedure/s: Bronch Consent for Planned Operative Procedure(s) Verified: Yes NPO Status Verified Time NPO: 00:00 Additional verifications Anesthesia Reactions: No Hx Blood Transfusions: No Blood Transfusion Reaction: No Airway Assessment C-Spine Mobility Assessed: Yes TMJ Mobility Assessed: Yes Dentition: Good Dentition Neurological Assessment Level of Consciousness: Awake Hx Seizures: No Numbness or tingling in extremities: No Anesthesia Plan Anesthesia Risk discussed: Yes Anesthesia Plan: Verified ASA Class: III Anesthesia Type: General
--- NOTE | 2022-07-30 13:14 | XR_ITS ---
FINAL REPORT CLINICAL HISTORY: BIOPSY OF RIGHT LOWER LOBE FINDINGS: FLUORO TIME PROCEDURE: Fluoroscopy in the operating room. FINDINGS: Fluoroscopy time was provided by the radiology department for the clinical service. One spot film was obtained. Fluoroscopy exposure time: 1:44 minutes IMPRESSION: See above Reviewed, Interpreted and Dictated by Justus Stewart III, MD Transcribed by Cuca Chase Authenticated and [facility]
--- NOTE | 2022-07-30 13:25 | P.PCN_ITS ---
Procedure: Date: 07/30/22 Patient Date of :: 1970 Procedure Performed:: Bronchoscopy airway examination, transbronchial biopsy, EBUS FNA Indications:: Lung mass and lymphadenopathy Performing Provider:: Sushil Domingo MD Referring Provider:: Dr. Ann Sedation:: General anesthesia Procedure:: Bronchoscopy airway examination, transbronchial biopsy, EBUS FNA: Bronchoscopy airway examination, bronchoalveolar lavage and transbronchial lung biopsy: A clean EBUS bronchoscopy was advanced the ET tube and lymph node surveillance performed. Patient noted to have station 7 lymphadenopathy EBUS guided fine-n eedle aspiration of this lymph node was performed. Patient also noted to have a conglomerate of lung mass and lymphadenopathy at station 11 R status post EBUS guided fine-needle aspiration. A total of 7 passes were done at each station, FNA specimen from 5 passes were sent in in cytolyt for pathological examination and 2 were sent in normal saline for culture. Pathology at bedside, adequate lymphoid tissue, the mass lymph node conglomerate at 11 R is concerning for malignancy. No specific fungal/granulomas noted at either of the FNA sites. EBUS was retracted and a A clean DIAGNOSTIC bronchoscopy was advanced through the ET tube and airways were examined up to subsegmental bronchi. Airways appeared grossly normal, no evidence of , mucous plugging active bleeding/old blood clots noted. Copious amount of mucoid secretions were noted in bilateral lower lobes, suction. Bronchoalveolar lavage was performed in the RIGHT LOWER LOBE with instillation of 60 cc normal saline with return of 30 cc back. BAL fluid was sent for cell count and differential along with bacterial fungal and AFB stain and cultures. Transbronchial biopsy was performed in the RIGHT LOWER LOBE with a total of 7 b iopsies performed, 5 biopsy specimens were sent in formalin for cytopathologic examination. The other 2 biopsy samples, were sent one each in two separate normal saline specimen cups for bacterial fungal and AFB stain cultures. Special request was also made for the pathologist to evaluate for AFB and fungal organisms on the cytopathologic examination. Patient tolerated the procedure with no acute complications. We will follow the patient in pulmonary clinic in 7 to 10 days. Findings:: Please see the procedure note Recommendations:: Please see the procedure note. We will follow in clinic. Complications:: No acute immediate complications Estimated blood obtained (mL): 10
--- NOTE | 2022-07-30 13:27 | P.PNANES_ITS ---
[facility] Anesthesia Record Part I Anesthesia Record I Intake, IV Amount: 600 Estimated blood loss (mL): 5 Urine output (mL): 0 Blood Pressure: 115/43 SaO2: 95 Pulse Rate: 100 Respiratory Rate: 22 Temperature: 98.3 F Patient is:: Awake Stable to PACU at:: 13:25
--- NOTE | 2022-07-30 13:29 | XR_ITS ---
FINAL REPORT TECHNIQUE: Single view chest CLINICAL HISTORY: post bronch COMPARISON: 07/02/2022 FINDINGS: A single view of the chest was obtained. The heart and mediastinum are within normal limits. There are persistent bilateral upper lobe opacities. A cavitary area is seen in the right upper thorax. Bilateral pleural thickening is again seen. Right lung opacities could represent edema or hemorrhage. There is no pneumothorax. IMPRESSION: Persistent bilateral upper lobe opacities and bilateral pleural thickening. Cavitary area in the right upper thorax. Right lung opacities which could represent edema or hemorrhage. Reviewed, Interpreted and Dictated by Justus Stewart III, MD Transcribed by Michelle Elam Authenticated and [facility]
--- NOTE | 2022-07-30 14:08 | SUR.PHASEI ---
1335- ewelina, radiology at bedside to do chest xray at this time 1354- detailed report called to kedar rangel in post op 1356- pt left in stable condition with kedar rangel. all vitals stable at this time
--- NOTE | 2022-07-31 10:28 | EXP.ANES.II ---
[facility] Anesthesia Record Part II Anesthesia Record Part II Discharge Time: 13:55 Destination: Surgical Day Care (OP Surgery) PACU nurse assessment reviewed?: Yes Patient Condition:: Good Anesthesia Complications:: None Swallowing reflex intact?: Yes Cyanosis?: No Blood Pressure: 117/63 Pulse Rate: 91 Temperature: 8.1 F Mental Status: Alert & Oriented Pain level:: 0 Nausea and/or vomitting:: None Intake, IV Amount: 0
[2022-07-31 10:29] VITALS: BP 117/63; PULSE 91; TEMP -13.3; TEMP 8.1
== END 2022-07-30 14:45 | disposition home or self-care (01) ==
PROVIDERS: PCP Family Medicine; Visit Provider Internal Medicine Pulmonary Disease
PROC: (CPT 31624; principal; 2022-07-30 10:45)
DX: R91.1 Solitary pulmonary nodule (principal); J98.4 Other disorders of lung; J84.10 Pulmonary fibrosis, unspecified; F17.210 Nicotine dependence, cigarettes, uncomplicated; B39.2 Pulmonary histoplasmosis capsulati, unspecified
CPT/HCPCS: 31624; 31628; 31625; 71045; 76000; 81025; 87070; 87102; 87116; 87186; 87205; 87206; 89051

== ENCOUNTER → 2022-08-07 13:42 | Outpatient (CLI) | payer BC, SELFPAY ==
[2022-08-07 15:12] LABS: Basophils # 0.1 K/mm3 (0-0.2); Basophils % 0.6 % (0.1-2.0); Eosinophils # 0.1 K/mm3 (0.0-0.4); Eosinophils % 0.8 % (0.1-12.0); Hematocrit 33.3 % (37.0-47.0); Hemoglobin 10.6 g/dL (12.2-16.2); Lymphocytes # 1.8 K/mm3 (0.7-4.5); Mean Corpuscular HGB Conc 31.8 g/dL (31.8-35.4); Mean Corpuscular Volume 81.7 fl (81-99); Mean Platelet Volume 8.4 fl (7.4-10.4); Monocytes # 0.6 K/mm3 (0.1-1.0); Neutrophils # 5.6 K/mm3 (1.8-7.8); Neutrophils % 69.5 % (37.0-80.0); Platelet Count 422 K/mm3 (142-424); Red Blood Count 4.07 M/mm3 (4.20-5.40); Red Cell Distribution Width 17.9 % (11.5-17.5)
[2022-08-07 15:45] LABS: Alanine Aminotransferase 11 U/L (12-78); Albumin Level 3.3 g/dl (3.5-5.0); Albumin/Globulin Ratio 1.1 (1.1-1.8); Alkaline Phosphatase 168 U/L (38-126); Anion Gap 14.9 mEq/L (5-15); Aspartate Amino Transferase 22 U/L (14-36); Bilirubin,Total 0.2 mg/dl (0.2-1.3); Blood Urea Nitrogen 9 mg/dl (7-17); Calcium 8.8 mg/dl (8.4-10.2); Carbon Dioxide 29 mmol/L (22.0-30.0); Chloride 103 mmol/L (98-107); Estimated Glomerular Filt Rate 131 ml/min (>60); GFR (African American) 158 ML/MIN (>60); Glucose 87 mg/dl (74-100); Potassium 4.9 mmoL/L (3.5-5.1); Sodium 142 mmol/L (136-145); Total Protein,Serum 6.3 g/dl (6.3-8.2)
== END ==
PROVIDERS: PCP Family Medicine; Visit Provider Internal Medicine Pulmonary Disease
DX: J45.909 Unspecified asthma, uncomplicated (principal); J84.9 Interstitial pulmonary disease, unspecified
CPT/HCPCS: 36415; 80053; 85025

== ENCOUNTER 2022-08-17 22:29 | Observation (INO) | payer BC, SELFPAY ==
[2022-08-17 22:44] VITALS: BP 146/58; PULSE 101; RESP 26; TEMP 37.1; O2SAT 97; BMI 21.2
--- NOTE | 2022-08-17 22:59 | XR_ITS ---
PROCEDURE INFORMATION: Exam: XR Chest Exam date and time: 08/17/2022 11:16 PM Age: 51 years old Clinical indication: Shortness of breath; Patient HX: Just diagnosed with lung cancer on aug 09; Additional info: SOB TECHNIQUE: Imaging protocol: Radiologic exam of the chest. Views: 1 view. COMPARISON: CR XR CHEST PORTABLE 07/30/2022 1:32 PM FINDINGS: Lungs: Generalized pulmonary hyperexpansion with diaphragmatic flattening suggesting changes of COPD. Rounded 3.2 cm masslike focus in the right perihilar region corresponds to the mass described on CT 07/02/2022 concerning for malignancy. Previous alveolar opacities in the right mid and basilar pulmonary distributions seen on 07/30/2022 have resolved. No definite acute infiltrates or edema pattern currently. Pleural spaces: There is bilateral apical pleural/parenchymal scarring with upward hilar retraction suggesting underlying changes of chronic granulomatous disease. No pleural effusion. Mild right basilar pleural scarring unchanged. No pneumothorax. Heart/Mediastinum: Heart size normal. Bones/joints: No acute osseous abnormalities are identified. Soft tissues: Nipple shadows project over the lung bases. IMPRESSION: 1. Previous alveolar densities in the right mid and basilar lung field seen on 07/30/2022 have resolved. No evidence of acute pulmonary infiltrates or edema pattern currently. 2. Emphysematous changes and severe bilateral apical pleural/parenchymal scarring with upward hilar retraction suggesting chronic sequelae of prior granulomatous infection again noted. 3. Proximally 3.2 cm masslike focus in the right perihilar region likely represents the patient's clinically described lung cancer.
--- NOTE | 2022-08-17 23:34 | ECG_ITS ---
APPROVED REPORT Exam: Resting ECG HR:81 bpm ECG Measurements Heart Rate 81 AXES WV 96 P 83 QRSd 64 QRS 84 QT 362 T 74 QTc 400 Conclusion SINUS RHYTHM WITH SHORT WV INTERVAL RIGHT ATRIAL ENLARGEMENT [0.3mV P-WAVE] Late R wave progression, unchanged from prior. ABNORMAL ECG UNCONFIRMED REPORT Electronically signed by : Delvis Soliman MD 08/21/2022 18:10:33
[2022-08-17 23:44] VITALS: BP 124/73; PULSE 87; RESP 23; O2SAT 96
[2022-08-18] VITALS (13 sets, daily range): BP systolic 108–144; BP diastolic 59–91; PULSE 69–100; RESP 13–34; TEMP 36.4–37.2; O2SAT 91–100; BMI 16.8
[2022-08-18 00:30] LABS: Basophils # 0.1 K/mm3 (0-0.2); Basophils % 0.4 % (0.1-2.0); Chloride 99 mmol/L (98-107); Eosinophils # 0.1 K/mm3 (0.0-0.4); Eosinophils % 0.5 % (0.1-12.0); Hematocrit 33.3 % (37.0-47.0); Hemoglobin 10.7 g/dL (12.2-16.2); Lymphocytes # 1.5 K/mm3 (0.7-4.5); Lymphocytes % 11.6 % (10-50); Mean Corpuscular HGB Conc 32.1 g/dL (31.8-35.4); Mean Corpuscular Hemoglobin 26.6 pg (27.0-31.2); Mean Corpuscular Volume 82.9 fl (81-99); Mean Platelet Volume 8.6 fl (7.4-10.4); Monocytes # 0.9 K/mm3 (0.1-1.0); Neutrophils # 10.6 K/mm3 (1.8-7.8); Neutrophils % 80.5 % (37.0-80.0); Platelet Count 468 K/mm3 (142-424); Potassium 3.1 mmoL/L (3.5-5.1); Red Blood Count 4.01 M/mm3 (4.20-5.40); Red Cell Distribution Width 18.1 % (11.5-17.5); Sodium 138 mmol/L (136-145); White Blood Count 13.2 K/mm3 (4.8-10.8)
[2022-08-18 00:32] LABS: Blood Urea Nitrogen 3 mg/dl (7-17); Creatinine Clearance Estimated 145 mL/min (50-200); Estimated Glomerular Filt Rate 169 ml/min (>60); GFR (African American) 204 ML/MIN (>60)
[2022-08-18 00:33] LABS: Alanine Aminotransferase 12 U/L (12-78); Albumin Level 3.4 g/dl (3.5-5.0); Albumin/Globulin Ratio 1.1 (1.1-1.8); Alkaline Phosphatase 163 U/L (38-126); Anion Gap 11.1 mEq/L (5-15); Aspartate Amino Transferase 20 U/L (14-36); Bilirubin,Total 0.3 mg/dl (0.2-1.3); Calcium 8.6 mg/dl (8.4-10.2); Carbon Dioxide 31 mmol/L (22.0-30.0); Globulin 3.2 g/dL (1.3-3.2); Glucose 109 mg/dl (74-100); Total Protein,Serum 6.6 g/dl (6.3-8.2)
[2022-08-18 00:42] LABS: NT Pro Brain Natriuretic Pep. 713 pg/mL (0-125)
--- NOTE | 2022-08-18 01:30 | PC.NURSE ---
ER speaking with TRACK REPAIR SUPERVISOR at this time
--- NOTE | 2022-08-18 01:41 | HMH.EDGENADL ---
Discharge Plan Disposition Patient Disposition: Admitted as Observation Condition: Fair Chief Complaint: Upper Respiratory Infection Prescriptions Prescriptions: No Action albuterol sulfate 90 mcg/actuation HFA aerosol inhaler 1 inh INHALATION QID PRN (Reason: shortness of breath or wheezing) Qty: 18 10RF budesonide-formoterol 160-4.5 mcg/actuation HFA aerosol inhaler 2 puff INHALATION BID Qty: 10.2 0RF alprazolam 0.5 mg tablet 0.5 mg PO BID PRN (Reason: anxiety) Qty: 30 3RF nicotine 14 mg/24 hr patch 24 hour 1 patch transdermal DAILY itraconazole 100 mg capsule 100 mg PO DAILY Rx Instructions: Must administer with a meal/food Take two 100mg tablets three times daily (200mg three times daily) for three days followed by one tablet twice daily (100 mg twice daily) thereafter. Referrals Follow up/Referrals: Paul Ann MD [Primary Care Provider] - See instructions Clinical Impressions Clinical Impression: Acute hypokalemia, Lung nodule, Elevated brain natriuretic peptide (BNP) level Discharge ED Provider: Douglas Cazares General Adult HPI General Chief complaint: Upper Respiratory Infection Stated complaint: SOA Time Seen by Provider: 08/17/22 23:17 Mode of Arrival: Wheelchair Source of Information: Patient and Relative Limitations: No Limitations Description of Symptoms (Recalled from ER Triage Doc. by RN): Patient c/o feeling light headed with soa, productive cough with green foul phlegm and feelings of being smothered for the prior 2 days. History of Present Illness HPI narrative: 51yo F with past medical history of lung cancer and histoplasmosis presents to the emergency department secondary to shortness of breath and lightheadedness. Symptoms ongoing all day. Reports nightly fever and believes this is secondary to her antifungal medication. Reports no treatment of her lung cancer to date because they are wanting to completely treat her fungal infection. Notes a productive cough Related Data Home Medications Medication Instructions Recorded Confirmed nicotine 14 mg/24 hr daily 1 patch transdermal DAILY tobacco 07/27/22 08/17/22 transdermal patch cessation itraconazole 100 mg capsule 100 mg PO DAILY fungal infection 08/17/22 08/17/22 Previous Rx's Medication Instructions Recorded albuterol sulfate 90 mcg/actuation 1 inh inhalation QID PRN shortness 06/25/22 aerosol inhaler of breath or wheezing #18 grams budesonide-formoterol HFA 160 2 puff inhalation BID COPD #10.2 06/28/22 mcg-4.5 mcg/actuation aerosol grams inhaler alprazolam 0.5 mg tablet 0.5 mg PO BID PRN anxiety #30 tabs 07/12/22 Allergies Allergy/AdvReac Type Severity Reaction Status Date / Time Penicillins [PENICILLINS] Allergy Unknown Verified 08/09/22 11:01 [facility] PFS Medical History Anxiety Bronchitis Cavitary lesion of lung COPD (chronic obstructive pulmonary disease) Dyspnea on exertion Lung cancer, middle lobe Lung nodule Personal history of other diseases of the respiratory system Pneumonia Pulmonary emphysema Pulmonary histoplasmosis Surgical History History of bronchoscopy History of lung surgery Family History Father Emphysema lung COPD (chronic obstructive pulmonary disease) Other Family history of TIAs Family history of hyperlipidemia Family history of hypertension Social History Smoking Status: Current every day smoker tobacco type: cigarettes packs per day: 1 years smoked: 30 second hand exposure: Yes alcohol intake: never substance use type: marijuana current occupational status: unemployed Travel in the last 8 weeks: None household members: none housing: house 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
--- NOTE | 2022-08-18 01:43 | PC.NURSE ---
PHYSICIAN UNDERWRITER speaking with pt at this time
--- NOTE | 2022-08-18 01:55 | EXP.HP ---
History of Present Illness *Admission Date: 08/18/22 *Reason for visit:: Orthopnea *History of present illness: Ms. Godfrey is a 51-year-old female with a past medical history that is positive for Adenocarcinoma of the Lung, currently being referred to cancer center and history of spontenous Pneumothorax, and is currently being treated for a fungal infection of the lung, on itreconazole. She presents to [facility] with a one-day history of Orthopnea and Paroxysmal nocturnal dyspnea. On evaluation in the ER she was found to have an elevated BNP in the 713 range. Cxxray shows no pleural effusions, and shows the known lung mass in the right perihilar region. On examination the patient is sitting upright in bed and reports she has been unable to lie flat. The patient will be admitted with elevated BNP, echocardiogram has been ordered for the am. The plan of care was discussed with the patient in the ER on admission. The patient verbalizes understanding and agreement with the plan of care. [facility] Medical History Anxiety Bronchitis Cavitary lesion of lung COPD (chronic obstructive pulmonary disease) Dyspnea on exertion Lung cancer, middle lobe Lung nodule Personal history of other diseases of the respiratory system Pneumonia Pulmonary emphysema Pulmonary histoplasmosis Surgical History History of bronchoscopy History of lung surgery Family History Father Emphysema lung COPD (chronic obstructive pulmonary disease) Other Family history of TIAs Family history of hyperlipidemia Family history of hypertension Social History (Updated 08/18/22 @ 03:06 by Magda Vargas RN) Smoking Status: Current every day smoker tobacco type: cigarettes packs per day: 1 years smoked: 30 second hand exposure: Yes alcohol intake: never substance use type: marijuana current occupational status: unemployed Travel in the last 8 weeks: None household members: none housing: house 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 current occupational exposures/hazards: No caffeine: Yes Review of Systems Review of Systems Review of systems:: pertinent systems reviewed and negative unless documented below Constitutional Constitutional: Reports weakness Eyes Eyes: Reports system reviewed and no additional complaints, except as documented ENT Ears, Nose, Mouth, and Throat: Reports system reviewed and no additional complaints, except as documented *Cardiovascular Cardiovascular: Reports dyspnea Comments: Orthopnea, paroxysmal nocturnal dyspnea *Respiratory Respiratory: Reports dyspnea *Gastrointestinal Gastrointestinal: Reports system reviewed and no additional complaints, except as documented *Genitourinary Genitourinary: Reports system reviewed and no additional complaints, except as documented *Musculoskeletal Musculoskeletal: Reports system reviewed and no additional complaints, except as documented Integumentary/Breasts Skin/Breast: Reports system reviewed and no additional complaints, except as documented *Neurologic Neurologic: Reports system reviewed and no additional complaints, except as documented and Reports weakness Psychiatric Psychiatric: Reports anxiety Endocrine Endocrine: Reports system reviewed and no additional complaints, except as documented Hematologic/Lymphatic Hematologic/Lymphatic: Reports system reviewed and no additional complaints, except as documented Allergic/Immunologic Allergic/Immunologic: Reports system reviewed and no additional complaints, except as documented Meds Home Medications and Allergies Home Medications Medication Instructions Recorded Confirmed Type budesonide-formoterol HFA 160 2 puff inhalation BID COPD #10.2 06/28/22 08/18/22 Rx mcg-4.5 mcg/actuation aerosol grams inhaler nicotine 14 mg/24 hr daily 1
[2022-08-18 07:13] LABS: Basophils # 0.1 K/mm3 (0-0.2); Basophils % 0.4 % (0.1-2.0); Eosinophils # 0.1 K/mm3 (0.0-0.4); Eosinophils % 0.4 % (0.1-12.0); Hematocrit 33.4 % (37.0-47.0); Hemoglobin 10.4 g/dL (12.2-16.2); Lymphocytes # 1.8 K/mm3 (0.7-4.5); Lymphocytes % 15.8 % (10-50); Mean Corpuscular HGB Conc 31.1 g/dL (31.8-35.4); Mean Corpuscular Hemoglobin 26.6 pg (27.0-31.2); Mean Corpuscular Volume 85.3 fl (81-99); Mean Platelet Volume 8.4 fl (7.4-10.4); Monocytes # 0.9 K/mm3 (0.1-1.0); Monocytes % 8.4 % (1.7-9.3); Neutrophils # 8.5 K/mm3 (1.8-7.8); Platelet Count 450 K/mm3 (142-424); Red Blood Count 3.92 M/mm3 (4.20-5.40); Red Cell Distribution Width 18.2 % (11.5-17.5); White Blood Count 11.3 K/mm3 (4.8-10.8)
[2022-08-18 07:26] LABS: Alanine Aminotransferase 12 U/L (12-78); Albumin Level 3.4 g/dl (3.5-5.0); Albumin/Globulin Ratio 1.1 (1.1-1.8); Alkaline Phosphatase 180 U/L (38-126); Anion Gap 11.9 mEq/L (5-15); Aspartate Amino Transferase 18 U/L (14-36); Bilirubin,Total 0.5 mg/dl (0.2-1.3); Blood Urea Nitrogen 2 mg/dl (7-17); Calcium 8.9 mg/dl (8.4-10.2); Carbon Dioxide 30 mmol/L (22.0-30.0); Chloride 102 mmol/L (98-107); Creatinine Clearance Estimated 153 mL/min (50-200); Estimated Glomerular Filt Rate 235 ml/min (>60); GFR (African American) 285 ML/MIN (>60); Globulin 3.2 g/dL (1.3-3.2); Glucose 122 mg/dl (74-100); Potassium 3.9 mmoL/L (3.5-5.1); Sodium 140 mmol/L (136-145); Total Protein,Serum 6.6 g/dl (6.3-8.2)
[2022-08-18 07:32] LABS: NT Pro Brain Natriuretic Pep. 710 pg/mL (0-125)
--- NOTE | 2022-08-18 10:49 | HMH.PHAINT1 ---
Pharmacy Intervention Comments: MEDICATION RECONCILIATION COMPLETE USING LIST FROM RECENT MD OFFICE VISITS AND EXTERNAL PHARMACY FILL HISTORY.
--- NOTE | 2022-08-18 11:33 | EXP.DC.SUM ---
General Admission date:: 08/18/22 Discharge date: 08/18/22 HPI HPI HPI: Ms. Godfrey is a 51-year-old female with a past medical history that is positive for Adenocarcinoma of the Lung, currently being referred to [facility] and history of spontenous Pneumothorax, and is currently being treated for a fungal infection of the lung, on itreconazole. She presents to [facility] with a one-day history of Orthopnea and Paroxysmal nocturnal dyspnea. On evaluation in the ER she was found to have an elevated BNP in the 713 range. Cxxray shows no pleural effusions, and shows the known lung mass in the right perihilar region. On examination the patient is sitting upright in bed and reports she has been unable to lie flat. The patient will be admitted with elevated BNP, echocardiogram has been ordered for the am. The plan of care was discussed with the patient in the ER on admission. The patient verbalizes understanding and agreement with the plan of care. Hospital Course Hospital Course Hospital Course: 51-year-old female with past medical history of Adenocarcinoma of the Lung, currently being referred to [facility] for evaluation and treatment of her right middle lobe nodule. She additionally follows with pulmonology at [facility], recently started on itraconazole for suspected histoplasmosis (previously treated almost 2 years ago). Presented to the ER with orthopnea and paroxysmal nocturnal dyspnea. Admitted for COPD exacerbation versus CHF exacerbation. No previous history of CHF. Does have longstanding history of COPD/emphysema, anxiety, spontaneous pneumothoraces. This morning on rounds, is stable on room air. Has been wearing supplemental oxygen intermittently more for comfort than actual need. Cough productive. Afebrile. Medically stable for discharge home with continuation of itraconazole and treatment of COPD exacerbation. Has responded well to diuresis. Needs an echocardiogram, unable to obtain on the weekend. Low concern for emergent need, this can be done as an outpatient later this week. Problems addressed as follows during hospitalization Elevated BNP Suspected diastolic CHF -Given patient's significant emphysema, lack of peripheral edema, orthopnea, and paroxysmal nocturnal dyspnea, treated for CHF with diuretic x1. Had good urine output with improvement in symptoms. Echo ordered as outpatient. Recommend further management as an outpatient. 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 Continue itraconazole at this time. Holding on steroids due to current treatment for fungal infection. Continue home inhalers. Does not qualify for home oxygen at this time -Has a follow-up appointment with [facility] on Saturday for further work-up and management of her adenocarcinoma. Close follow-up with pulmonology at [facility]. Anxiety Disorder - Continue home regime Exam Data for Last 24 hours Vital signs and Labs for Last 24 Hours: Temp Pulse Resp BP Pulse Ox 97.6 F 74 16 108/59 L 99 08/18/22 08:00 08/18/22 11:18 08/18/22 08:00 08/18/22 08:00 08/18/22 11:18 Laboratory Results - last 24 hr 08/18/22 00:20: WBC 13.2 H, RBC 4.01 L, Hgb 10.7 L, Hct 33.3 L, MCV 82.9, MCH 26.6 L, MCHC 32.1, RDW 18.1 H, Plt Count 468 H, MPV 8.6, Neut % (Auto) 80.5 H, Lymph % (Auto) 11.6, [place] % (Auto) 7.0, Eos % (Auto) 0.5, Baso % (Auto) 0.4, Neut # (Auto) 10.6 H, Lymph # (Auto) 1.5, [place] # (Auto) 0.9, Eos # (Auto) 0.1, Baso # (Auto) 0.1 08/18/22 00:20: Sodium 138, Potassium 3.1 L, Chloride 99, Carbon Dioxide 31 H, Anion Gap 11.1, BUN 3 L, Creatinine 0.40 L, Estimated Creat Clear 145, Estimated GFR 169, Est GFR ( Amer) 204, Glucose 109 H, Calcium 8.6, Total Bilirubin 0.3, AST 20, ALT 12, Alkaline Phosph
--- NOTE | 2022-08-18 12:54 | HMH.PHAINT1 ---
Pharmacy Intervention Comments: DISCHARGE MEDICATION COUNSELING PROVIDED. DISCUSSED SHORT-COURSE AZITHROMYCIN (DAILY, START TOMORROW, MAY CAUSE UPSET STOMACH, NAUSEA/VOMITING/DIARRHEA, TAKE WITH OR WITHOUT FOOD). PATIENT VERBALIZED NO QUESTIONS AT THIS TIME.
== END 2022-08-18 15:15 | disposition home or self-care (01) ==
LOC: ER 08-18 01:54 → 2ND 08-18 03:46
PROVIDERS: Nurse Practitioner Family; Admitting Provider Internal Medicine Adolescent Medicine; Emergency Provider Family Medicine; PCP Family Medicine; Visit Provider Internal Medicine Adolescent Medicine
DX: J44.1 Chronic obstructive pulmonary disease with (acute) exacerbation (principal); E87.6 Hypokalemia; F17.210 Nicotine dependence, cigarettes, uncomplicated; C34.2 Malignant neoplasm of middle lobe, bronchus or lung; Z91.198 Patient's noncompliance with other medical treatment and regimen for other reason; B48.8 Other specified mycoses; Z20.822 Contact with and (suspected) exposure to COVID-19; I50.9 Heart failure, unspecified
CPT/HCPCS: 36415; 71045; 80053; 83880; 85025; 87070; 87205; 93005; 94640; 99285; C9803; G0378; J0456; U0003; U0005

== ENCOUNTER 2022-12-02 15:09 | Emergency (ER) | payer BC, SELFPAY ==
[2022-12-02] VITALS (9 sets, daily range): BP systolic 103–120; BP diastolic 58–78; PULSE 80–125; RESP 16–17; TEMP 36.4–36.8; O2SAT 96–100; BMI 16.6
[2022-12-02 15:44] LABS: Basophils # 0.1 K/mm3 (0-0.2); Basophils % 0.8 % (0.1-2.0); Eosinophils # 0.1 K/mm3 (0.0-0.4); Eosinophils % 0.8 % (0.1-12.0); Hematocrit 34.2 % (37.0-47.0); Hemoglobin 10.9 g/dL (12.2-16.2); Lymphocytes % 23.8 % (10-50); Mean Corpuscular HGB Conc 31.7 g/dL (31.8-35.4); Mean Corpuscular Hemoglobin 24.7 pg (27.0-31.2); Mean Corpuscular Volume 77.8 fl (81-99); Mean Platelet Volume 7.9 fl (7.4-10.4); Monocytes # 0.5 K/mm3 (0.1-1.0); Neutrophils # 5.8 K/mm3 (1.8-7.8); Neutrophils % 68.5 % (37.0-80.0); Platelet Count 463 K/mm3 (142-424); Red Blood Count 4.39 M/mm3 (4.20-5.40); Red Cell Distribution Width 18.5 % (11.5-17.5); White Blood Count 8.4 K/mm3 (4.8-10.8)
[2022-12-02 15:45] LABS: Chloride 105 mmol/L (98-107); Potassium 4.2 mmoL/L (3.5-5.1); Sodium 139 mmol/L (136-145)
[2022-12-02 15:48] LABS: Anion Gap 9.2 mEq/L (5-15); Blood Urea Nitrogen 6 mg/dl (7-17); Calcium 8.7 mg/dl (8.4-10.2); Carbon Dioxide 29 mmol/L (22.0-30.0); Creatinine Clearance Estimated 78 mL/min (50-200); Estimated Glomerular Filt Rate 106 ml/min (>60); GFR (African American) 128 ML/MIN (>60); Glucose 109 mg/dl (74-100)
--- NOTE | 2022-12-02 16:02 | CT_ITS ---
PROCEDURE INFORMATION: Exam: CT Chest With Contrast; Diagnostic Exam date and time: 12/02/2022 4:25 PM Age: 51 years old Clinical indication: Cough; Patient HX: PT is a smoker; Additional info: Hemoptysis, cough TECHNIQUE: Imaging protocol: Diagnostic computed tomography of the chest with contrast. Radiation optimization: All CT scans at this facility use at least one of these dose optimization techniques: automated exposure control; mA and/or kV adjustment per patient size (includes targeted exams where dose is matched to clinical indication); or iterative reconstruction. Contrast material: ISOVUE; Contrast volume: 75 ml; Contrast route: IV; Other protocol: This patient has received [address] and 0 known cardiac nuclear medicine studies in the 12 months prior to the current study. COMPARISON: CT CHEST W CON 07/02/2022 1:54 PM FINDINGS: Lungs: Spiculated right perihilar lesion is re-identified measuring 2.8 x 4.2 cm, previously 2.5 x 3.1 cm. The lesion encases right upper lobe pulmonary segmental branches. No active extravasation of contrast. Scattered tree-in-bud opacities noted in the left lower lobe. Regions of architectural distortion in cylindric bronchiectasis are noted in right apical and left lower lobe. Pleural spaces: Advanced biapical pleural scarring noted. Heart: No cardiomegaly or pericardial effusion. Coronary arteries: No significant coronary artery calcifications. Lymph nodes: There are borderline prominent multi station mediastinal nodes. Vasculature: Aorta is nonaneurysmal. Liver: New hypodense lesions throughout the liver suspicious for metastatic disease. Bones/joints: Unremarkable. No acute fracture. Soft tissues: Unremarkable. IMPRESSION: 1. Interval growth of right paramediastinal spiculated lesion. The lesion encases right upper lobe pulmonary segmental branches. 2. New hypodense lesions throughout the liver are suspicious for metastatic disease. 3. Tree-in-bud opacities can be seen in the context of bronchiolitis/aspiration.
--- NOTE | 2022-12-02 16:23 | PC.NURSE ---
PT IS NOT IN ROOM SHE STILL AT CT
--- NOTE | 2022-12-02 17:23 | PC.WOUNDNOTE ---
PT REQUESTED FOR HALI AGUILERA OKAYED IT. NO OTHER COMPLAINTS AT THIS TIME
--- NOTE | 2022-12-02 17:24 | CT_ITS ---
PROCEDURE INFORMATION: Exam: CTA Chest With Contrast Exam date and time: 12/02/2022 5:40 PM Age: 51 years old Clinical indication: Cough and shortness of breath; Patient HX: Known lung cancer; Additional info: R/O pe, hemoptysis-- TECHNIQUE: Imaging protocol: Computed tomographic angiography of the chest with contrast. 3D rendering (Not supervised by radiologist): MIP and/or 3D reconstructed images were created by the technologist. Radiation optimization: All CT scans at this facility use at least one of these dose optimization techniques: automated exposure control; mA and/or kV adjustment per patient size (includes targeted exams where dose is matched to clinical indication); or iterative reconstruction. Contrast material: ISOVUE; Contrast volume: 75 ml; Contrast route: INTRAVENOUS (IV); Other protocol: This patient has received 3 known CTs and 0 known cardiac nuclear medicine studies in the 12 months prior to the current study. COMPARISON: CT CHEST W CON 12/02/2022 4:25 PM FINDINGS: Pulmonary arteries: No evidence of filling defects to suggest pulmonary emboli. Aorta: Unremarkable. No aortic aneurysm. No aortic dissection. Lungs: Spiculated right perihilar lesion is re-identified measuring 2.8 x 4.2 cm, previously 2.5 x 3.1 cm. The lesion encases right upper lobe pulmonary segmental branches. Multifocal luminal narrowing is concerning for local invasion. No active extravasation of contrast. Scattered tree-in-bud opacities noted in the left lower lobe. Regions of architectural distortion in cylindric bronchiectasis are noted in right apical and left lower lobe. Pleural spaces: Advanced biapical pleural scarring noted. Heart: No cardiomegaly or pericardial effusion. The left atrial appendage is normal. Heart RV/LV ratio: The RV: LV ratio is less than 1. Coronary arteries: No significant coronary artery calcifications. Lymph nodes: There are borderline prominent multi station mediastinal nodes. Intraperitoneal space: For findings in the abdomen and pelvis, please refer to the separately dictated abdomen and pelvis CT report under a separate accession number. Bones/joints: Unremarkable. No acute fracture. Soft tissues: Unremarkable. Other findings: Vasculature: Aorta is nonaneurysmal. IMPRESSION: 1. Interval growth of right paramediastinal spiculated lesion. The lesion encases and narrows right upper lobe pulmonary segmental branches. No contrast extravasation. 2. No pulmonary embolus. 3. Tree-in-bud opacities can be seen in the context of bronchiolitis/aspiration.
--- NOTE | 2022-12-02 17:24 | CT_ITS ---
PROCEDURE INFORMATION: Exam: CTA Abdomen With Contrast Exam date and time: 12/02/2022 5:40 PM Age: 51 years old Clinical indication: Shortness of breath; Patient HX: PT has known lung cancer; Additional info: R/O pe, hemoptysis TECHNIQUE: Imaging protocol: Computed tomographic angiography of the abdomen with contrast. 3D rendering (Not supervised by radiologist): MIP and/or 3D reconstructed images were created by the technologist. Radiation optimization: All CT scans at this facility use at least one of these dose optimization techniques: automated exposure control; mA and/or kV adjustment per patient size (includes targeted exams where dose is matched to clinical indication); or iterative reconstruction. Contrast material: ISOVUE; Contrast volume: 75 ml; Contrast route: INTRAVENOUS (IV); Other protocol: This patient has received 3 known [address]s and 0 known cardiac nuclear medicine studies in the 12 months prior to the current study. COMPARISON: ABDPELW/O CT ABD PELVIS W/O CONTRAST 02/01/2017 7:03 AM FINDINGS: Aorta: The aorta demonstrates mild atherosclerotic calcification. Celiac trunk and mesenteric arteries: No occlusion or significant stenosis. Renal arteries: No occlusion or significant stenosis. Liver: Scattered hypodense lesions throughout the liver are re-identified. Gallbladder and bile ducts: Gallbladder is distended without radiopaque cholelithiasis. No biliary ductal dilation. Pancreas: No peripancreatic fluid stranding. No main pancreatic ductal dilation. Spleen: No splenomegaly. Adrenal glands: The adrenal glands are normal. Kidneys and ureters: Nephrograms are symmetric. No nephrolithiasis or hydroureteronephrosis on either side. No solid lesions Stomach and bowel: No bowel wall thickening or distention. Lymph nodes: No evidence of retroperitoneal or mesenteric lymphadenopathy. Intraperitoneal space: There is no evidence of free intraperitoneal or pelvic fluid. Bones/joints: No definitive osseous lesions. No acute osseous abnormality. Soft tissues: Unremarkable. IMPRESSION: 1. Hypodense lesions throughout the liver suspicious for metastatic disease. 2. Mild aortic atherosclerosis. No dissection or aneurysm. Major aortic branches are patent
--- NOTE | 2022-12-02 17:58 | PC.NURSE ---
rounded on pt at this time. no needs voiced
--- NOTE | 2022-12-02 18:01 | PC.NURSE ---
ROUNDED ON PT STATES NO COMPLAINTS AT THIS TIME,GAVE HER ANOTHER SODA TO DRINK
--- NOTE | 2022-12-02 18:45 | PC.NURSE ---
er at bedside
--- NOTE | 2022-12-02 18:55 | PC.NURSE ---
calling [facility] to consult with er about mestatic lung cancer
--- NOTE | 2022-12-02 19:00 | PC.NURSE ---
bre marte spoke to md
--- NOTE | 2022-12-02 19:02 | HMH.EDGENADL ---
Discharge Plan Disposition Patient Disposition: Home, Self-Care Condition: Good Prescriptions Prescriptions: New azithromycin 500 mg tablet See Rx Instructions .ROUTE .COMPLEX Qty: 6 0RF Rx Instructions: For 250 mg dose pack: take 500 mg today (day 1), then 250 mg for 4 days (days 2-5) No Action oxycodone-acetaminophen [Percocet] 5-325 mg tablet 1 tab PO Q8H PRN (Reason: pain) Qty: 45 0RF Rx Instructions: for pain associated with cancer treatment nicotine 14 mg/24 hr patch 24 hour 1 patch transdermal DAILY itraconazole 100 mg capsule 100 mg PO BID alprazolam 0.5 mg tablet 0.5 mg PO BIDP PRN (Reason: Anxiety) albuterol sulfate [ProAir HFA] 90 mcg/actuation HFA aerosol inhaler 1 inh INHALATION QIDP PRN (Reason: Shortness Of Breath) budesonide-formoterol [Symbicort] 160-4.5 mcg/actuation HFA aerosol inhaler See Rx Instructions .ROUTE .COMPLEX Rx Instructions: Inhale 2 puffs by mouth twice daily Referrals Follow up/Referrals: Paul Ann MD [Primary Care Provider] - See instructions Clinical Impressions Clinical Impression: Metastatic lung cancer (metastasis from lung to other site), Hemoptysis Print Language Print Language: Sammarinese Discharge ED Provider: Zachariah Mederos General Adult HPI General Chief complaint: Upper Respiratory Infection Stated complaint: Coughing up blood Time Seen by Provider: 12/02/22 19:10 Mode of Arrival: Ambulatory Source of Information: Patient Limitations: No Limitations Description of Symptoms (Recalled from ER Triage Doc. by RN): 51 F presents with 1 day hemoptysis. She was a former heavy smoker, diagnosed with lung cancer and currently receiving IV immunotherapy- last dose was in October. She advises that her PCP had to come in today for further evaluation. History of Present Illness HPI narrative: Patient presents to the emergency department with scant hemoptysis. The patient states that it was more of a brownish-black color today. She denies any recent worsening shortness of breath. She does have a history of lung cancer which she is receiving immunotherapy at the [place] [id number]. She denies any recent fever, chills, nausea or vomiting. Related Data Home Medications Medication Instructions Recorded Confirmed nicotine 14 mg/24 hr daily 1 patch transdermal DAILY tobacco 07/27/22 12/02/22 transdermal patch cessation itraconazole 100 mg capsule 100 mg PO BID fungal infection 08/17/22 12/02/22 albuterol sulfate 90 mcg/actuation 1 inh inhalation QIDP PRN 08/18/22 12/02/22 aerosol inhaler (ProAir HFA) Shortness Of Breath alprazolam 0.5 mg tablet 0.5 mg PO BIDP PRN Anxiety 08/18/22 12/02/22 budesonide-formoterol HFA 160 See Rx Instructions .Route 12/02/22 12/02/22 mcg-4.5 mcg/actuation aerosol .COMPLEX Breathing problems inhaler (Symbicort) Previous Rx's Medication Instructions Recorded oxycodone-acetaminophen 5 mg-325 1 tab PO Q8H PRN pain #45 tabs 10/04/22 mg tablet (Percocet) azithromycin 500 mg tablet See Rx Instructions PO .COMPLEX #6 12/02/22 tabs Allergies Allergy/AdvReac Type Severity Reaction Status Date / Time Penicillins [PENICILLINS] Allergy Unknown Verified 08/18/22 03:01 [facility] Disclaimer: The information contained in this section may have been updated after the patient was seen, as this information can be updated by other users. Medical History Abnormal chest xray Anxiety Bronchitis Cavitary lesion of lung COPD (chronic obstructive pulmonary disease) COPD (chronic obstructive pulmonary disease) Dyspnea on exertion History of pneumothorax Lung cancer, middle lobe Lung nodule Multiple pulmonary nodules Personal history of other diseases of the respiratory system Pneumonia Pulmonary emphysema Pulmonary histoplasmosis Pulmonary histoplasmosis Surgical History (Reviewed 12/02/22 @ 19:04 by Zachariah Sosa
== END 2022-12-02 19:16 | disposition home or self-care (01) ==
PROVIDERS: Emergency Provider Emergency Medicine; PCP Family Medicine
DX: C78.00 Secondary malignant neoplasm of unspecified lung (principal); J44.9 Chronic obstructive pulmonary disease, unspecified; F41.9 Anxiety disorder, unspecified; R91.8 Other nonspecific abnormal finding of lung field; F17.210 Nicotine dependence, cigarettes, uncomplicated; Z83.6 Family history of other diseases of the respiratory system; Z82.49 Family history of ischemic heart disease and other diseases of the circulatory system; Z82.3 Family history of stroke; Z83.42 Family history of familial hypercholesterolemia
CPT/HCPCS: 71260; 71275; 74175; 80048; 85025; 96360; 99285; Q9967

== ENCOUNTER 2023-05-04 02:06 | Observation (INO) | payer BC, SELFPAY ==
[2023-05-04] VITALS (14 sets, daily range): BP systolic 110–143; BP diastolic 63–94; PULSE 43–108; RESP 16–28; TEMP 36.1–36.9; O2SAT 92–100; BMI 12.9; BMI 15.9
[2023-05-04 02:32] LABS: Basophils % 0.3 % (0.1-2.0); Eosinophils % 0.3 % (0.1-12.0); Hematocrit 33.7 % (37.0-47.0); Hemoglobin 10.1 g/dL (12.2-16.2); Lymphocytes # 1.9 K/mm3 (0.7-4.5); Lymphocytes % 16.3 % (10-50); Mean Corpuscular HGB Conc 30.1 g/dL (31.8-35.4); Mean Corpuscular Hemoglobin 26.9 pg (27.0-31.2); Mean Corpuscular Volume 89.6 fl (81-99); Monocytes # 0.8 K/mm3 (0.1-1.0); Neutrophils # 8.9 K/mm3 (1.8-7.8); Neutrophils % 76.1 % (37.0-80.0); Platelet Count 229 K/mm3 (142-424); Red Blood Count 3.76 M/mm3 (4.20-5.40); Red Cell Distribution Width 17.7 % (11.5-17.5); White Blood Count 11.7 K/mm3 (4.8-10.8)
[2023-05-04 02:34] LABS: Chloride 90 mmol/L (98-107); Potassium 3.4 mmoL/L (3.5-5.1); Sodium 130 mmol/L (136-145)
[2023-05-04 02:37] LABS: Alanine Aminotransferase 24 U/L (12-78); Albumin Level 2.4 g/dl (3.5-5.0); Albumin/Globulin Ratio 0.8 (1.1-1.8); Alkaline Phosphatase 408 U/L (38-126); Anion Gap 12.4 mEq/L (5-15); Aspartate Amino Transferase 53 U/L (14-36); Bilirubin,Total 1.7 mg/dl (0.2-1.3); Blood Urea Nitrogen 8 mg/dl (7-17); Carbon Dioxide 31 mmol/L (22.0-30.0); Creatinine Clearance Estimated 89 mL/min (50-200); Estimated Glomerular Filt Rate 168 ml/min (>60); GFR (African American) 204 ML/MIN (>60); Total Protein,Serum 5.4 g/dl (6.3-8.2)
[2023-05-04 02:38] LABS: Calcium 7.9 mg/dl (8.4-10.2); Glucose 100 mg/dl (74-100)
--- NOTE | 2023-05-04 02:57 | PC.NURSE ---
pt refused the promethozine and requested to take half of her home pain medication oxycodone 10mg
--- NOTE | 2023-05-04 03:29 | XR_ITS ---
PROCEDURE INFORMATION: Exam: XR Chest Exam date and time: 05/04/2023 3:42 AM Age: 52 years old Clinical indication: Shortness of breath; Additional info: SOA, tachypnea TECHNIQUE: Imaging protocol: Radiologic exam of the chest. Views: 1 view. COMPARISON: CT CHEST W CON 12/02/2022 4:25 PM FINDINGS: Lungs: There is a mass seen in the right perihilar region that appears more prominent than on the recent CT scan. Parenchymal opacities also seen in the left upper chest. The lungs are hyperinflated. A large air cyst is again seen in the right lung base. Pleural spaces: Unremarkable. No pleural effusion. No pneumothorax. Heart/Mediastinum: Unremarkable. No cardiomegaly. Bones/joints: Unremarkable. Soft tissues: Loculated air cavity in the right upper chest. A smaller 1 is also seen in the left upper chest. IMPRESSION: Right upper lobe mass and other densities as previously noted, the mass appears increased in size. Large air blebs are again noted. Hyperinflation is present.
--- NOTE | 2023-05-04 03:42 | HMH.EDGENADL ---
Discharge Plan Disposition Patient Disposition: Admitted as Observation Clinical Impressions Clinical Impression: Adult failure to thrive Malnutrition Qualifiers: Malnutrition type: protein-calorie malnutrition Protein-calorie malnutrition severity: moderate Qualified Code(s): E44.0 - Moderate protein-calorie malnutrition Discharge ED Provider: Cristofer Mcclelland General Adult HPI General Chief complaint: Weakness Stated complaint: Weakness Time Seen by Provider: 05/04/23 02:08 Mode of Arrival: Ambulatory Source of Information: Patient Limitations: Physical Limitations Description of Symptoms (Recalled from ER Triage Doc. by RN): pt c/o weakness, being dizzy and headache for 3 weeks worsining this week the pt states that she has lung cancer and has been recieving chemo and immuno infusions, the pt has been losing the desire to eat for weeks History of Present Illness HPI narrative: This is a 52-year-old female with history of stage IV lung cancer currently on immunotherapy presenting with weakness and decreased appetite. Patient states that she has not been able to eat a meaningful meal in a couple of weeks. Last time she ate was about 48 hours prior to arrival, she had a peanut butter and jelly sandwich. Has been tolerating liquids, and whenever she eats she does tolerate p.o. intake without vomiting, but has had no appetite. Has had significant weight loss over the past few months. Denies abdominal pain, chest pain, hemoptysis, fevers or chills, diarrhea. Last bowel movement was 2 days prior to arrival, which is normal for her, and she was not constipated, there was no blood, or any abnormalities. Still passing flatus. Patient currently has no complaints other than decreased appetite and generalized weakness out of concern for dehydration Related Data Home Medications Medication Instructions Recorded Confirmed nicotine 14 mg/24 hr daily 1 patch transdermal DAILY tobacco 07/27/22 12/02/22 transdermal patch cessation itraconazole 100 mg capsule 100 mg PO BID fungal infection 08/17/22 12/02/22 albuterol sulfate 90 mcg/actuation 1 inh inhalation QIDP PRN 08/18/22 12/02/22 aerosol inhaler (ProAir HFA) Shortness Of Breath budesonide-formoterol HFA 160 See Rx Instructions .Route 12/02/22 12/02/22 mcg-4.5 mcg/actuation aerosol .COMPLEX Breathing problems inhaler (Symbicort) Previous Rx's Medication Instructions Recorded oxycodone-acetaminophen 5 mg-325 1 tab PO Q8H PRN pain #45 tabs 10/04/22 mg tablet (Percocet) azithromycin 500 mg tablet See Rx Instructions PO .COMPLEX #6 12/02/22 tabs alprazolam 0.5 mg tablet 0.5 mg PO BIDP PRN Anxiety #30 tabs 12/17/22 Allergies Allergy/AdvReac Type Severity Reaction Status Date / Time Penicillins [PENICILLINS] Allergy Unknown Verified 08/18/22 03:01 [facility] Disclaimer: The information contained in this section may have been updated after the patient was seen, as this information can be updated by other users. Medical History Abnormal chest xray Anxiety Bronchitis Cavitary lesion of lung COPD (chronic obstructive pulmonary disease) COPD (chronic obstructive pulmonary disease) Dyspnea on exertion History of pneumothorax Lung cancer, middle lobe Lung nodule Multiple pulmonary nodules Personal history of other diseases of the respiratory system Pneumonia Pulmonary emphysema Pulmonary histoplasmosis Pulmonary histoplasmosis Surgical History History of bronchoscopy History of lung surgery Family History Father Emphysema lung COPD (chronic obstructive pulmonary disease) Other Family history of TIAs Family history of hyperlipidemia Family history of hypertension Social History Smoking Status: Former smoker years smoked: 30 second
--- NOTE | 2023-05-04 04:12 | PC.NURSE ---
on phone with hospitalist
--- NOTE | 2023-05-04 04:16 | PC.NURSE ---
notified supervisor dimension warehouse of admission
--- NOTE | 2023-05-04 04:17 | PC.NURSE ---
Pt assigned to room 204 for malnutrition and failure to thrive to the Hospitalist. OBS
[2023-05-04 04:47] LABS: Lactic Acid 2.8 mmol/L (0.7-2.1)
--- NOTE | 2023-05-04 05:01 | PC.NURSE ---
report given to Ariella DAVIS
--- NOTE | 2023-05-04 05:09 | PC.NURSE ---
Pt arrived to floor via stretcher @ [id number]
[2023-05-04 05:35] LABS: Microscopic, Urine URINE MICROSCOPIC (MICROSCOPIC)
--- NOTE | 2023-05-04 05:43 | EXP.HP ---
History of Present Illness *Admission Date: 05/04/23 *Reason for visit:: weakness *History of present illness: 52 year old female presented to the ED with her sister for c/o weakness. PMHX of metastatic lung cancer, anxiety, pneumothorax, tobacco abuse and COPD. She currently receives chemotherapy and immnotherapy at with Dr. Lynne. She receives treatment every three weeks. Missed appointment on 05/02/23. States she is unhappy with care at and it is their fault the appointment was missed. States she has not been able to eat for weeks. Denies any new acute pain. Denies nausea or vomiting. Able to tolerate oral intake. In the ED the pt was treated with broad spectrum antibiotics for possible pneumonia. The ED discussed hospice with pt. The ED physician spoke with hospitalist for further medical management. Upon admission to the floor the pt appears thin, chronically ill, and malnourished. She refuses hospice and wants to continue treatment for Lung cancer. Pt has mets to the liver and brain. Will have PT and nutrition see patient. Will need further plan of care discussion with pt. [facility] Disclaimer: The information contained in this section may have been updated after the patient was seen, as this information can be updated by other users. Medical History Abnormal chest xray Anxiety Bronchitis Cavitary lesion of lung COPD (chronic obstructive pulmonary disease) COPD (chronic obstructive pulmonary disease) Dyspnea on exertion History of pneumothorax Lung cancer, middle lobe Lung nodule Multiple pulmonary nodules Personal history of other diseases of the respiratory system Pneumonia Pulmonary emphysema Pulmonary histoplasmosis Pulmonary histoplasmosis Surgical History History of bronchoscopy History of lung surgery Family History Father Emphysema lung COPD (chronic obstructive pulmonary disease) Other Family history of TIAs Family history of hyperlipidemia Family history of hypertension Social History (Updated 05/04/23 @ 05:41 by Magda Vargas RN) Smoking Status: Former smoker years smoked: 30 second hand exposure: Yes alcohol intake: never substance use type: marijuana current occupational status: unemployed Travel in the last 8 weeks: None household members: none housing: house 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 current occupational exposures/hazards: No caffeine: Yes Review of Systems Review of Systems Review of systems:: pertinent systems reviewed and negative unless documented below Constitutional Constitutional: Reports system reviewed and no additional complaints, except as documented, Reports anorexia, Reports weakness and Reports weight loss Eyes Eyes: Reports system reviewed and no additional complaints, except as documented ENT Ears, Nose, Mouth, and Throat: Reports system reviewed and no additional complaints, except as documented *Cardiovascular Cardiovascular: Reports system reviewed and no additional complaints, except as documented and Reports dyspnea *Respiratory Respiratory: Reports system reviewed and no additional complaints, except as documented, Reports cough and Reports dyspnea *Gastrointestinal Gastrointestinal: Reports system reviewed and no additional complaints, except as documented *Genitourinary Genitourinary: Reports system reviewed and no additional complaints, except as documented *Musculoskeletal Musculoskeletal: Reports muscle weakness Integumentary/Breasts Skin/Breast: Reports system reviewed and no additional complaints, except as documented *Neurologic Neurologic: Reports system reviewed and no additional complaints, except as documented and Reports weakness Meds Home Medications and Allergies Home Medications Medication Instructions Recorded Confirmed Type albuterol sulfate 90 mcg/actua
[2023-05-04 05:57] LABS: Appearance,Urine SL CLOUDY (Clear); Bilirubin,Urine Negative (Negative); Blood, Urine TRACE-I (Negative); Color,Urine AMBER (Yellow); Glucose,Urine (UA) Negative (Negative); Ketones,Urine Negative (Negative); Leukocyte Esterase,Urine TRACE (Negative); Nitrate,Urine POSITIVE (Negative); Protein,Urine 1+ (Negative); Specific Gravity, Urine 1.025 (1.005-1.030)
[2023-05-04 06:13] LABS: RBC,Urine Occasional #/hpf (0-3); Squamous Epithelial Cell,Urine Occasional #/hpf (0-5)
[2023-05-04 06:14] LABS: Bacteria,Urine 4+ /lpf
[2023-05-04 06:23] LABS: Basophils % 0.3 % (0.1-2.0); Eosinophils # 0.1 K/mm3 (0.0-0.4); Eosinophils % 0.6 % (0.1-12.0); Hematocrit 32.4 % (37.0-47.0); Lymphocytes # 1.5 K/mm3 (0.7-4.5); Lymphocytes % 15.8 % (10-50); Mean Corpuscular HGB Conc 30.8 g/dL (31.8-35.4); Mean Corpuscular Hemoglobin 27.1 pg (27.0-31.2); Mean Platelet Volume 8.4 fl (7.4-10.4); Monocytes # 0.7 K/mm3 (0.1-1.0); Monocytes % 7.4 % (1.7-9.3); Neutrophils # 7.4 K/mm3 (1.8-7.8); Neutrophils % 75.8 % (37.0-80.0); Platelet Count 225 K/mm3 (142-424); Red Blood Count 3.69 M/mm3 (4.20-5.40); Red Cell Distribution Width 17.9 % (11.5-17.5); White Blood Count 9.8 K/mm3 (4.8-10.8)
[2023-05-04 06:35] LABS: Anion Gap 10.8 mEq/L (5-15); Blood Urea Nitrogen 8 mg/dl (7-17); Calcium 7.5 mg/dl (8.4-10.2); Carbon Dioxide 28 mmol/L (22.0-30.0); Chloride 95 mmol/L (98-107); Creatinine Clearance Estimated 111 mL/min (50-200); Estimated Glomerular Filt Rate 168 ml/min (>60); GFR (African American) 204 ML/MIN (>60); Glucose 95 mg/dl (74-100); Potassium 3.8 mmoL/L (3.5-5.1); Sodium 130 mmol/L (136-145)
[2023-05-04 08:33] LABS: Reflex Lactic Add Lactic Reflex
--- NOTE | 2023-05-04 08:33 | EXP.PHA.CONS ---
Pharmacy Consult Date: 05/04/23 Time: 08:34 Referring provider: DR. KUMARI Reason for Consult:: VANCOMYCIN DOSING Allergies Allergy/AdvReac Type Severity Reaction Status Date / Time Penicillins [PENICILLINS] Allergy Unknown Verified 08/18/22 03:01 Home Medications Medication Instructions Recorded Confirmed Type albuterol sulfate 90 mcg/actuation 1 inh inhalation QIDP PRN 08/18/22 05/04/23 History aerosol inhaler (ProAir HFA) Shortness Of Breath oxycodone-acetaminophen 5 mg-325 1 tab PO Q8H PRN pain #45 tabs 10/04/22 05/04/23 Rx mg tablet (Percocet) ondansetron HCl 4 mg tablet 8 mg PO Q8HP PRN nausea/vomiting 05/04/23 05/04/23 History New Prescriptions to Start Prescriptions: Height: 1.63 m Weight: 42.212 kg Laboratory Results:: Laboratory Results - last 24 hr 05/04/23 02:20: WBC 11.7 H, RBC 3.76 L, Hgb 10.1 L, Hct 33.7 L, MCV 89.6, MCH 26.9 L, MCHC 30.1 L, RDW 17.7 H, Plt Count 229, MPV 8.0, Neut % (Auto) 76.1, Lymph % (Auto) 16.3, [place] % (Auto) 7.0, Eos % (Auto) 0.3, Baso % (Auto) 0.3, Neut # (Auto) 8.9 H, Lymph # (Auto) 1.9, Drew # (Auto) 0.8, Eos # (Auto) 0.0, Baso # (Auto) 0.0, Sodium 130 L, Potassium 3.4 L, Chloride 90 L, Carbon Dioxide 31 H, Anion Gap 12.4, BUN 8, Creatinine 0.40 L, Estimated Creat Clear 89, Estimated GFR 168, Est GFR ( Amer) 204, Glucose 100, Lactate 2.8 H, Calcium 7.9 L, Total Bilirubin 1.7 H, AST 53 H, ALT 24, Alkaline Phosphatase 408 H, Total Protein 5.4 L, Albumin 2.4 L, Globulin 3.0, Albumin/Globulin Ratio 0.8 L 05/04/23 05:25: Urine Color Alejandrina, Urine Appearance Sl cloudy, Urine pH 6.0, Ur Specific [place] 1.025, Urine Protein 1+, Urine Glucose (UA) Negative, Urine Ketones Negative, Urine Blood Trace-i, Urine Nitrate Positive, Urine Bilirubin Negative, Urine Urobilinogen 4.0, Ur Leukocyte Esterase Trace, Urine RBC Occasional, Urine WBC 5-10, Ur Squamous Epith Cells Occasional, Urine Bacteria 4+ 05/04/23 06:13: WBC 9.8, RBC 3.69 L, Hgb 10.0 L, Hct 32.4 L, MCV 88.0, MCH 27.1, MCHC 30.8 L, RDW 17.9 H, Plt Count 225, MPV 8.4, Neut % (Auto) 75.8, Lymph % (Auto) 15.8, [place] % (Auto) 7.4, Eos % (Auto) 0.6, Baso % (Auto) 0.3, Neut # (Auto) 7.4, Lymph # (Auto) 1.5, Drew # (Auto) 0.7, Eos # (Auto) 0.1, Baso # (Auto) 0.0, Sodium 130 L, Potassium 3.8, Chloride 95 L, Carbon Dioxide 28, Anion Gap 10.8, BUN 8, Creatinine 0.40 L, Estimated Creat Clear 111, Estimated GFR 168, Est GFR ( Amer) 204, Glucose 95, Calcium 7.5 L Medical History: Medical History (Updated 05/04/23 @ 06:01 by KVNG Akbar) Abnormal chest xray Anxiety Bronchitis Cavitary lesion of lung COPD (chronic obstructive pulmonary disease) COPD (chronic obstructive pulmonary disease) Dyspnea on exertion History of pneumothorax Lung cancer, middle lobe Lung nodule Multiple pulmonary nodules Personal history of other diseases of the respiratory system Pneumonia Pulmonary emphysema Pulmonary histoplasmosis Pulmonary histoplasmosis Assessment and Plan Assessment and plan all Dx Assessment and Plan for all problems:: Pharmacokinetic dosing service Objective: Patient: Floor: Age: 52 yo Serum creatinine: 0.7 mg/dL Height: 64.2 Inches Weight (kg): 42 Assessment: IBW (kg): 55.16 Dosing wt(kg): 42 Estimated Creatinine clearance (ml/min): 63.0 CRCL method: Cockcroft and Gault using ibw(default). Drug selected: Vancomycin Loading dose (mg): 0 Vd (liters): 33.6 (factor used: 0.8 L/kg) Anatoly (hr-1): 0.057 Half life (hrs): 12.16 Recommended dose: 1000 mg Interval: 24 hrs Infusion time (hrs): 2.0 Predicted peak (mcg/mL): 37.7 Predicted trough (mcg/mL): 10.76 Total body weight is being used for vancomycin dosing. Recommendations: Give Vancomycin 1000 mg q 24 hrs with an expected Cpeak of 37.7 mcg/ml and an expected Ctrough of 10.76 mc
[2023-05-04 09:11] LABS: Lactic Acid Follow Up (RFLX 1) 1.7 mmol/L (0.7-2.1)
--- NOTE | 2023-05-04 13:59 | EXP.DC.SUM ---
General Admission date:: 05/04/23 Discharge date: 05/04/23 HPI HPI HPI: 52 year old female presented to the ED with her sister for c/o weakness. PMHX of metastatic lung cancer, anxiety, pneumothorax, tobacco abuse and COPD. She currently receives chemotherapy and immnotherapy at with Dr. Lynne. She receives treatment every three weeks. Missed appointment on 05/02/23. States she is unhappy with care at and it is their fault the appointment was missed. States she has not been able to eat for weeks. Denies any new acute pain. Denies nausea or vomiting. Able to tolerate oral intake. In the ED the pt was treated with broad spectrum antibiotics for possible pneumonia. The ED discussed hospice with pt. The ED physician spoke with hospitalist for further medical management. Upon admission to the floor the pt appears thin, chronically ill, and malnourished. She refuses hospice and wants to continue treatment for Lung cancer. Pt has mets to the liver and brain. Will have PT and nutrition see patient. Will need further plan of care discussion with pt. Exam Data for Last 24 hours Vital signs and Labs for Last 24 Hours: Temp Pulse Resp BP Pulse Ox O2 Del Method O2 Flow Rate 98.0 F 49 L 16 123/69 100 Nasal Cannula 2 05/04/23 08:00 05/04/23 08:00 05/04/23 08:00 05/04/23 08:00 05/04/23 08:00 05/04/23 13:00 05/04/23 13:00 Laboratory Results - last 24 hr 05/04/23 02:20: WBC 11.7 H, RBC 3.76 L, Hgb 10.1 L, Hct 33.7 L, MCV 89.6, MCH 26.9 L, MCHC 30.1 L, RDW 17.7 H, Plt Count 229, MPV 8.0, Neut % (Auto) 76.1, Lymph % (Auto) 16.3, [place] % (Auto) 7.0, Eos % (Auto) 0.3, Baso % (Auto) 0.3, Neut # (Auto) 8.9 H, Lymph # (Auto) 1.9, [place] # (Auto) 0.8, Eos # (Auto) 0.0, Baso # (Auto) 0.0, Sodium 130 L, Potassium 3.4 L, Chloride 90 L, Carbon Dioxide 31 H, Anion Gap 12.4, BUN 8, Creatinine 0.40 L, Estimated Creat Clear 89, Estimated GFR 168, Est GFR ( Amer) 204, Glucose 100, Lactate 2.8 H, Calcium 7.9 L, Total Bilirubin 1.7 H, AST 53 H, ALT 24, Alkaline Phosphatase 408 H, Total Protein 5.4 L, Albumin 2.4 L, Globulin 3.0, Albumin/Globulin Ratio 0.8 L 05/04/23 05:25: Urine Color Alejandrina, Urine Appearance Sl cloudy, Urine pH 6.0, Ur Specific [place] 1.025, Urine Protein 1+, Urine Glucose (UA) Negative, Urine Ketones Negative, Urine Blood Trace-i, Urine Nitrate Positive, Urine Bilirubin Negative, Urine Urobilinogen 4.0, Ur Leukocyte Esterase Trace, Urine RBC Occasional, Urine WBC 5-10, Ur Squamous Epith Cells Occasional, Urine Bacteria 4+ 05/04/23 06:13: WBC 9.8, RBC 3.69 L, Hgb 10.0 L, Hct 32.4 L, MCV 88.0, MCH 27.1, MCHC 30.8 L, RDW 17.9 H, Plt Count 225, MPV 8.4, Neut % (Auto) 75.8, Lymph % (Auto) 15.8, [place] % (Auto) 7.4, Eos % (Auto) 0.6, Baso % (Auto) 0.3, Neut # (Auto) 7.4, Lymph # (Auto) 1.5, [place] # (Auto) 0.7, Eos # (Auto) 0.1, Baso # (Auto) 0.0, Sodium 130 L, Potassium 3.8, Chloride 95 L, Carbon Dioxide 28, Anion Gap 10.8, BUN 8, Creatinine 0.40 L, Estimated Creat Clear 111, Estimated GFR 168, Est GFR ( Amer) 204, Glucose 95, Calcium 7.5 L 05/04/23 08:58: Lactate 1.7 I & O for Last 24 hours: Intake & Output 05/01/23 05/02/23 05/03/23 05/04/23 23:59 23:59 23:59 23:59 Intake Total 240 / 240 Output Total 200 / 200 Balance 40 / 40 Weight 42.212 kg Results Data Completed and Pending Labs on day of discharge: Labs from last 24 hours 05/04/23 05/04/23 05/04/23 08:58 06:13 05:25 WBC 9.8 RBC 3.69 L Hgb 10.0 L Hct 32.4 L MCV 88.0 MCH 27.1 MCHC 30.8 L RDW 17.9 H Plt Count 225 MPV 8.4 Neut % (Auto) 75.8 Lymph % (Auto) 15.8 [place] % (Auto) 7.4 Eos % (Auto) 0.6 Baso % (Auto) 0.3 Neut # (Auto) 7.4 Lymph # (Auto) 1.5 [place] # (Auto) 0.7 Eos # (Auto) 0.1 Baso # (Auto) 0.0 Sodium 130 L Potassium 3.8 Chloride 95 L Carbon Dioxide 28 Anion Gap 10.8 BUN 8 Creatinine 0.40 L Estimated Creat Clear 111 Estimated GFR 168 Est GFR
--- NOTE | 2023-05-04 14:01 | EXP.ACUTE.PN ---
Subjective *Date: 05/04/23 *Time: 14:01 Interval history: Overnight events and update: Lactate normalized Patient feeling a little less fatigued than yesterday White count normalized Tolerating diet Urinating okay Remains afebrile PT to see patient Medical Exam Vital signs and Labs for Last 24 Hours: Vital Signs Temp Pulse Pulse Resp BP BP Pulse Ox 05/04/23 13:00 05/04/23 10:59 05/04/23 09:00 05/04/23 08:00 05/04/23 08:00 98.0 F 49 L 16 123/69 100 05/04/23 06:55 108 H 05/04/23 06:55 105 H 05/04/23 06:55 98 05/04/23 06:42 05/04/23 05:00 05/04/23 05:23 98.1 F 43 L 16 121/67 100 05/04/23 05:07 98.4 F 105 H 16 127/76 05/04/23 05:07 05/04/23 04:00 105 H 24 127/76 93 L 05/04/23 03:30 103 H 28 H 113/63 94 L 05/04/23 03:00 106 H 24 110/65 92 L 05/04/23 02:30 108 H 26 H 112/67 96 05/04/23 02:06 97 F L 75 16 122/73 96 O2 Del Method O2 Flow Rate 05/04/23 13:00 Nasal Cannula 2 05/04/23 10:59 Nasal Cannula 2 05/04/23 09:00 Nasal Cannula 2 05/04/23 08:00 Nasal Cannula 05/04/23 08:00 Nasal Cannula 2 05/04/23 06:55 05/04/23 06:55 05/04/23 06:55 Nasal Cannula 2 05/04/23 06:42 Nasal Cannula 2 05/04/23 05:00 Nasal Cannula 2 05/04/23 05:23 Nasal Cannula 2 05/04/23 05:07 Room Air 05/04/23 05:07 Room Air 05/04/23 04:00 2 05/04/23 03:30 2 05/04/23 03:00 05/04/23 02:30 05/04/23 02:06 Room Air Intake and Output 05/03/23 05/04/23 05/04/23 23:59 07:59 15:59 Intake Total 240 / 240 Output Total 200 / 200 0 / 200 Balance -200 / 40 240 / 40 Intake: Intake, Oral Amount 240 / 240 Output: Output, Urine Amount 200 / 200 0 / 200 Other: Number of Unmeasured Voids 1 Number of Bowel Movements 1 Weight 42.212 kg 42.212 kg Patient Weight 05/04/23 23:59 Weight 42.212 kg Laboratory Results - last 24 hr 05/04/23 02:20: WBC 11.7 H, RBC 3.76 L, Hgb 10.1 L, Hct 33.7 L, MCV 89.6, MCH 26.9 L, MCHC 30.1 L, RDW 17.7 H, Plt Count 229, MPV 8.0, Neut % (Auto) 76.1, Lymph % (Auto) 16.3, [place] % (Auto) 7.0, Eos % (Auto) 0.3, Baso % (Auto) 0.3, Neut # (Auto) 8.9 H, Lymph # (Auto) 1.9, [place] # (Auto) 0.8, Eos # (Auto) 0.0, Baso # (Auto) 0.0, Sodium 130 L, Potassium 3.4 L, Chloride 90 L, Carbon Dioxide 31 H, Anion Gap 12.4, BUN 8, Creatinine 0.40 L, Estimated Creat Clear 89, Estimated GFR 168, Est GFR ( Amer) 204, Glucose 100, Lactate 2.8 H, Calcium 7.9 L, Total Bilirubin 1.7 H, AST 53 H, ALT 24, Alkaline Phosphatase 408 H, Total Protein 5.4 L, Albumin 2.4 L, Globulin 3.0, Albumin/Globulin Ratio 0.8 L 05/04/23 05:25: Urine Color Alejandrina, Urine Appearance Sl cloudy, Urine pH 6.0, Ur Specific [place] 1.025, Urine Protein 1+, Urine Glucose (UA) Negative, Urine Ketones Negative, Urine Blood Trace-i, Urine Nitrate Positive, Urine Bilirubin Negative, Urine Urobilinogen 4.0, Ur Leukocyte Esterase Trace, Urine RBC Occasional, Urine WBC 5-10, Ur Squamous Epith Cells Occasional, Urine Bacteria 4+ 05/04/23 06:13: WBC 9.8, RBC 3.69 L, Hgb 10.0 L, Hct 32.4 L, MCV 88.0, MCH 27.1, MCHC 30.8 L, RDW 17.9 H, Plt Count 225, MPV 8.4, Neut % (Auto) 75.8, Lymph % (Auto) 15.8, [place] % (Auto) 7.4, Eos % (Auto) 0.6, Baso % (Auto) 0.3, Neut # (Auto) 7.4, Lymph # (Auto) 1.5, [place] # (Auto) 0.7, Eos # (Auto) 0.1, Baso # (Auto) 0.0, Sodium 130 L, Potassium 3.8, Chloride 95 L, Carbon Dioxide 28, Anion Gap 10.8, BUN 8, Creatinine 0.40 L, Estimated Creat Clear 111, Estimated GFR 168, Est GFR ( Amer) 204, Glucose 95, Calcium 7.5 L 05/04/23 08:58: Lactate 1.7 I & O for Labs for Last 24 Hours: Intake & Output 05/01/23 05/02/23 05/03/23 05/04/23 23:59 23:59 23:59 23:59 Intake Total 240 / 240 Output Total 200 / 200 Balance 40 / 40 Weight 42.212 kg Constitutional: Present cachectic and chronically ill appearing Comment:: Appears depressed Head: Pre
--- NOTE | 2023-05-04 14:26 | PC.NURSE ---
courtesy tech cristina: pt is lying in bed right side lateral. no requests voiced at this time. call light is within reach.
--- NOTE | 2023-05-04 16:49 | PC.NURSE ---
patient sister kojo called. patient gave permission to discuss information with her. sister is concerned about patients increasing decline.
--- NOTE | 2023-05-04 18:48 | PC.NURSE ---
patient has done okay this shift. noted to be incontinent of bowels. has been resting, does sleep heavily but will awaken once she is up. sister was worried about her decline.has ate a little bit this shift, has been drinking pepsi. has generalized pain all over. noted pleural rub on examination md aware. vitals stable.
--- NOTE | 2023-05-05 03:30 | ECG_ITS ---
APPROVED REPORT Exam: Resting ECG HR:117 bpm ECG Measurements Heart Rate 117 AXES AL 108 P 88 QRSd 56 QRS 85 QT 300 T 94 QTc 370 Conclusion SINUS TACHYCARDIA WITH SHORT AL INTERVAL WITH OCCASIONAL SUPRAVENTRICULAR PREMATURE COMPLEXES Late R wave progression, unchanged ABNORMAL ECG UNCONFIRMED REPORT Electronically signed by : Delvis Soliman MD 05/05/2023 08:40:54
[2023-05-05 03:43] VITALS: BP 136/74; PULSE 126; RESP 26; TEMP 36.7; O2SAT 99
--- NOTE | 2023-05-05 03:47 | CT_ITS ---
PROCEDURE INFORMATION: Exam: CT Head Without Contrast Exam date and time: 05/05/2023 4:14 AM Age: 52 years old Clinical indication: Stroke-like symptoms; Altered mental status/memory loss and speech disturbance and syncope/collapse TECHNIQUE: Imaging protocol: Computed tomography of the head without contrast. Radiation optimization: All CT scans at this facility use at least one of these dose optimization techniques: automated exposure control; mA and/or kV adjustment per patient size (includes targeted exams where dose is matched to clinical indication); or iterative reconstruction. Other technique: STROKE PROTOCOL was implemented. REPORTING DATA: Count of CT and Cardiac NM exams in prior 12 months: This patient has received 4 known CTs and 0 known cardiac nuclear medicine studies in the 12 months prior to the current study. COMPARISON: No relevant prior studies available. FINDINGS: Brain: Multiple areas of patchy edema diffusely throughout the brain. This is most prominent in the cerebellum. Large mass in the posterior left temporal lobe that measures 2.5 cm. Other masses that are up to 1.4 cm in size. [place]-white matter junction is intact. No area of hemorrhage. Cerebral ventricles: No ventriculomegaly. Paranasal sinuses: Visualized sinuses are unremarkable. No fluid levels. Mastoid air cells: Visualized mastoid air cells are well aerated. Bones/joints: Unremarkable. No acute fracture. Soft tissues: Unremarkable. IMPRESSION: 1. Extensive diffuse metastatic disease throughout the brain with a large amount of adjacent edema. 2. The remainder of the examination is unremarkable. There is no infarction or hemorrhage. ASSESSMENT: ASPECTS ([place] Stroke Program Early CT Score) is ten.
--- NOTE | 2023-05-05 03:49 | CT_ITS ---
PROCEDURE INFORMATION: Exam: CTA Head With Contrast, Arteriography Exam date and time: 05/05/2023 4:36 AM Age: 52 years old Clinical indication: Stroke-like symptoms; Altered mental status/memory loss; Additional info: AMS TECHNIQUE: Imaging protocol: Computed tomographic angiography of the head with contrast. Exam focused on the arteries. 3D rendering (Not supervised by radiologist): MIP and/or 3D reconstructed images were created by the technologist. Radiation optimization: All CT scans at this facility use at least one of these dose optimization techniques: automated exposure control; mA and/or kV adjustment per patient size (includes targeted exams where dose is matched to clinical indication); or iterative reconstruction. Contrast material: ISOUVE; Contrast volume: 93 ml; Contrast route: INTRAVENOUS (IV); REPORTING DATA: Count of CT and Cardiac NM exams in prior 12 months: This patient has received 4 known CTs and 0 known cardiac nuclear medicine studies in the 12 months prior to the current study. COMPARISON: CT HEAD/BRAIN WO CON 05/05/2023 4:14 AM FINDINGS: ANTERIOR CIRCULATION: Right internal carotid artery: Intracranial segment is patent with no significant stenosis. No aneurysm. Right middle cerebral artery: No occlusion or significant stenosis. No aneurysm. Right anterior cerebral artery: No occlusion or significant stenosis. No aneurysm. Left internal carotid artery: Intracranial segment is patent with no significant stenosis. No aneurysm. Left middle cerebral artery: No occlusion or significant stenosis. No aneurysm. Left anterior cerebral artery: No occlusion or significant stenosis. No aneurysm. POSTERIOR CIRCULATION: Right vertebral artery: No occlusion or significant stenosis. No aneurysm. Left vertebral artery: No occlusion or significant stenosis. No aneurysm. Basilar artery: No occlusion or significant stenosis. No aneurysm. Right posterior cerebral artery: No occlusion or significant stenosis. No aneurysm. Left posterior cerebral artery: No occlusion or significant stenosis. No aneurysm. Veins: There is no venous thrombosis. Brain: Multiple masses throughout the brain with the largest being in the medial left temporal lobe measuring 2.9 cm in size. Cerebral ventricles: No ventriculomegaly. Bones/joints: Unremarkable. No acute fracture. Soft tissues: Unremarkable. IMPRESSION: 1. No evidence for a embolism, dissection, aneurysm, or venous thrombosis. There is no significant stenosis. 2. Multiple masses throughout the brain with the largest being in the medial left temporal lobe measuring 2.9 cm in size.
[2023-05-05 04:00] VITALS: BMI 15.7
--- NOTE | 2023-05-05 04:00 | EXP.EVENT.NO ---
called to bedside by RN. Pt not responding to staff. head laid back with eyes open. Pt responsive to me at bedside. Answering when i yell her name and following simple commands to obtain her temperature and move around for a EKG. Pt responsive to name but also rambling random words. CT and CTA of head and neck ordered to rule out stroke.
--- NOTE | 2023-05-05 04:04 | CT_ITS ---
PROCEDURE INFORMATION: Exam: CTA Neck With Contrast Exam date and time: 05/05/2023 4:36 AM Age: 52 years old Clinical indication: Stroke-like symptoms; Altered mental status/memory loss TECHNIQUE: Imaging protocol: Computed tomographic angiography of the neck with contrast. 3D rendering (Not supervised by radiologist): MIP and/or 3D reconstructed images were created by the technologist. Radiation optimization: All CT scans at this facility use at least one of these dose optimization techniques: automated exposure control; mA and/or kV adjustment per patient size (includes targeted exams where dose is matched to clinical indication); or iterative reconstruction. Contrast material: ISOVUE; Contrast volume: 93 ml; Contrast route: INTRAVENOUS (IV); REPORTING DATA: Count of CT and Cardiac NM exams in prior 12 months: This patient has received 4 known CTs and 0 known cardiac nuclear medicine studies in the 12 months prior to the current study. COMPARISON: CT ANGIO CHEST PE PROTOCOL 12/02/2022 5:40 PM FINDINGS: Right common carotid artery: No stenosis. No dissection or occlusion. Right internal carotid artery: No significant stenosis. No dissection or occlusion. Right external carotid artery: No occlusion or stenosis of the origin. Left common carotid artery: No stenosis. No dissection or occlusion. Left internal carotid artery: No significant stenosis. No dissection or occlusion. Left external carotid artery: No occlusion or stenosis of the origin. Right vertebral artery: No stenosis. No dissection or occlusion. Left vertebral artery: No stenosis. No dissection or occlusion. Soft tissues: Normal. No significant soft tissue swelling. Bones/joints: No acute fracture. Lungs: Extensive chronic findings of the lung apices. IMPRESSION: 1. No evidence for a embolism, occlusion, dissection, or aneurysm. There is no significant stenosis. 2. Extensive chronic findings of the lung apices. REFERENCES: NASCET CRITERIA. The degree of stenosis in the cervical segment of the internal carotid artery is based on NASCET criteria. Normal is no stenosis. Mild is less than 50% stenosis. Moderate is 50-69% stenosis. Severe is 70% to 99% stenosis. Total occlusion is no detectable patent lumen.
--- NOTE | 2023-05-05 05:31 | PC.NURSE ---
PT HAD AN EPISODE AT 0330 AFTER ASKING FOR PAIN MEDICATION WHERE SHE WENT UNRESPONSIVE AND WAS TACHYPNIC. PT DID NOT RESPOND TO STERNAL RUB. CHIEF MATE AND VICE PRESIDENT OF FINANCECassidy VASQUEZ MADE AWARE AND CAME TO PT BEDSIDE. VICE PRESIDENT OF FINANCE ORDERED HEAD AND NECK CTA. PT BECAME MORE ALERT AFTER A FEW MINUTES BUT WAS VERY CONFUSED AND THINGS SHIFT SAID WERE NOT MAKING SENSE. PT WAS ALSO VERY AGITATED AT THAT TIME. THIS RN AND A TECH WENT TO RADIOLOGY WITH CHANGE OVER AND PT. PT TOLERATED PROCEDURE AND TRANSPORT WELL. PT'S VITAL SIGNS REMAINED STABLE THROUGH THIS EVENT. SLIGHTLY TACHYCARDIC BUT HAS BEEN SLIGHTLY TACHY WHILE IN THE HOSPITAL. PT C/O PAIN AND WAS MEDICATED PER Dec THIS SHIFT.
[2023-05-05 06:10] VITALS: PULSE 123; O2SAT 94
[2023-05-05 07:00] LABS: Basophils % 0.2 % (0.1-2.0); Eosinophils % 0.1 % (0.1-12.0); Hematocrit 35.7 % (37.0-47.0); Hemoglobin 10.6 g/dL (12.2-16.2); Lymphocytes # 1.1 K/mm3 (0.7-4.5); Lymphocytes % 7.3 % (10-50); Mean Corpuscular HGB Conc 29.8 g/dL (31.8-35.4); Mean Corpuscular Hemoglobin 27.2 pg (27.0-31.2); Mean Corpuscular Volume 91.2 fl (81-99); Mean Platelet Volume 8.4 fl (7.4-10.4); Monocytes # 0.6 K/mm3 (0.1-1.0); Monocytes % 4.2 % (1.7-9.3); Neutrophils # 12.9 K/mm3 (1.8-7.8); Neutrophils % 88.2 % (37.0-80.0); Platelet Count 240 K/mm3 (142-424); Red Blood Count 3.91 M/mm3 (4.20-5.40); Red Cell Distribution Width 17.6 % (11.5-17.5); White Blood Count 14.6 K/mm3 (4.8-10.8)
[2023-05-05 07:13] LABS: Anion Gap 12.8 mEq/L (5-15); Blood Urea Nitrogen 9 mg/dl (7-17); Calcium 7.6 mg/dl (8.4-10.2); Carbon Dioxide 21 mmol/L (22.0-30.0); Chloride 100 mmol/L (98-107); Creatinine Clearance Estimated 110 mL/min (50-200); Estimated Glomerular Filt Rate 168 ml/min (>60); GFR (African American) 204 ML/MIN (>60); Glucose 95 mg/dl (74-100); Potassium 3.8 mmoL/L (3.5-5.1); Sodium 130 mmol/L (136-145)
[2023-05-05 07:15] LABS: MANUAL DIFFERENTIAL MANUAL DIFFERENTIAL (MANUAL DIFF)
--- NOTE | 2023-05-05 07:16 | DIET.NUTRFU ---
Rd consulted secondary to dx of malnutrition. Patient has CA and receiving tx. Based on hospital records wt is stable at 43Kg since 08/2022. Patient has low BMI of 15. Currently on regular diet, meals intake noted 50%, Started ensure with trays. Will continue to monitor meal intake
[2023-05-05 07:52] VITALS: BP 154/81; PULSE 117; RESP 19; TEMP 36.8; O2SAT 99
[2023-05-05 08:00] VITALS: O2SAT 97
[2023-05-05 08:10] LABS: Prealbumin <3 mg/dL (10-36)
[2023-05-05 08:33] LABS: Lymphocytes % 10 % (10-50); Monocytes % 4 % (2-9); Neutrophils % 86 % (42-76); Platelet Estimate Normal; Total Cells Counted 100
[2023-05-05 08:34] LABS: Hypochromasia 1+
--- NOTE | 2023-05-05 11:52 | EXP.DC.SUM ---
General Admission date:: 05/04/23 Discharge date: 05/05/23 HPI HPI HPI: 52-year-old female with history of metastatic lung cancer on treatment include immunotherapy at with Dr. Lynne, presented to ER for significant generalized weakness and lethargy. Admitted for significant dehydration and to rule out an infectious process. Hospital Course Hospital Course Hospital Course: 52-year-old female with history of metastatic lung cancer on treatment including immunotherapy at with Dr. Lynne, presented to ER with generalized weakness and significant lethargy. Patient missed her treatment appointment with cancer center at on 05/02/2023 due to lethargy. In the ER concern for severe dehydration and malnutrition. Admitted to rule out infection, evaluation from diet, IV fluid hydration and physical therapy evaluation. Chest x-ray on 05/04: Right upper lobe mass and other densities as previously noted, the mass appears increased in size. Large air blebs are again noted. Hyperinflation is present Urine culture and blood culture from 05/04 pending--> so far negative WBC improved from 11.7-->9.8 Sodium unchanged, 130 Potassium improved from 3.4--> 3.8 Lactic acid improved from 2.8--> 1.7 On 05/05/2023 early in the morning she had an event where she was found to be a little bit obtunded and noncommunicative. Stat CT of the head was obtained that showed extensive diffuse metastatic disease throughout the brain with a large amount of adjacent edema. The remainder of the exams were unremarkable. There was no hemorrhage or infarction. Patient was asking for pain meds at this point but was not given due to her change in mental status. Her mentation improved in a few minutes and then she was back to her normal state. Today morning patient and her son was at bedside. Patient is not reporting any further change in her mental status and she appears to be very communicative. She is still lethargic but better than what it was before. She is able to tolerate diet. Patient to follow-up with cancer center for continuing with her therapy given her possibility of progressing her metastatic disease. Her sodium remains at 130 unchanged. So far her blood culture and urine culture are negative per preliminary results. She is DC'd on doxycycline for her suspected underlying pneumonia More than 30 minutes was utilized in coordinating this discharge. Time was utilized for reviewing diagnostics, imaging, microbiology data, medication reconciliation, answering all patient's and patient's son's questions were, follow-ups, patient education. Exam Data for Last 24 hours Vital signs and Labs for Last 24 Hours: Temp Pulse Resp BP Pulse Ox O2 Del Method O2 Flow Rate 98.2 F 117 H 19 154/81 H 97 Nasal Cannula 2 05/05/23 07:52 05/05/23 07:52 05/05/23 07:52 05/05/23 07:52 05/05/23 08:00 05/05/23 09:00 05/05/23 09:00 FiO2 28 05/04/23 19:13 Laboratory Results - last 24 hr 05/04/23 02:20: Prealbumin <3 L 05/05/23 06:24: WBC 14.6 H D, RBC 3.91 L, Hgb 10.6 L, Hct 35.7 L, MCV 91.2, MCH 27.2, MCHC 29.8 L, RDW 17.6 H, Plt Count 240, MPV 8.4, Neut % (Auto) 88.2 H, Lymph % (Auto) 7.3 L, [place] % (Auto) 4.2, Eos % (Auto) 0.1, Baso % (Auto) 0.2, Neut # (Auto) 12.9 H, Lymph # (Auto) 1.1, [place] # (Auto) 0.6, Eos # (Auto) 0.0, Baso # (Auto) 0.0, Total Counted 100, Neutrophils % (Manual) 86 H, Lymphocytes % (Manual) 10, Monocytes % (Manual) 4, Platelet Estimate Normal, Hypochromasia 1+, Sodium 130 L, Potassium 3.8, Chloride 100, Carbon Dioxide 21 L, Anion Gap 12.8, BUN 9, Creatinine 0.40 L, Estimated Creat Clear 110, Estimated GFR 168, Est GFR ( Amer) 204, Glucose 95, Calcium 7.6 L I & O for Last 24 hours: Intake & Output 05/02/23 05/03/23 05/04/23 05/05/23 23:59 23:59 23:59 23:59 Intake Total 1297 / 1297 240 / 240 Output Total 200 / 200 50 / 50 Balance 1097 / 1097 190 / 190 Weight 42.212 kg 41.867 kg Microbiology Reports for the Last 24
--- NOTE | 2023-05-05 12:09 | HMH.PTEV ---
Physical Therapy Evaluation Rehab PT IP Evaluation Start: 05/04/23 05:39 Freq: ONCE Status: Discharge Protocol: Document 05/05/23 10:35 EDD (Rec: 05/05/23 12:09 EDD [id number]) Subjective/History History History 52 yowf adm to [facility] with malnutrition and failure to thrive. She has hx of Lung cancer with mets to liver and brain, COPD. She reports she lives with family and has assistance with ADLs, she is generally ambulatory independently. Subjective Subjective Pt c/o feeling weak, but no other c/o at this time. I'm getting ready to go home right now. Rehab PT IP Eval Objective Appearance Patient Behavior Appropriate Patient Orientation Person,Place Difficulty following instructions none Speech Pattern Clear Ambulation Patient Able to Ambulate Yes Ambulation Observation IP General Gait Pattern Observation Wide Based Gait,Shuffling Step Ambulation Distance (feet) 5 Ambulation Assistive Device None Ambulation Ability Contact Guard/Hand Hold Balance Ability to Arise Able, uses arms to help Sitting Balance Steady, safe Standing Balance Steady, wide stance Dynamic Sitting Balance Ability Good Dynamic Standing Balance Ability Fair Transfers Bed Transfer Ability Contact Guard/Hand Hold Chair Transfer Ability Contact Guard/Hand Hold Sit to Stand Bed Transfer Ability Contact Guard/Hand Hold Sit to Stand Chair Transfer Ability Contact Guard/Hand Hold Rehab PT IP prob,goals,plan Problems Date of Evaluation: 05/05/23 Discharge Plan PT Discharge Plan Pt appears to be close to baseline for mobility, which is somewhat limited due to her co-morbid conditions. She is appropriate to return home with assistance once medically stable for d/c. G -code Required No Eval Complexity Eval Charge Codes 25222 - High Complexity PHYSICIAN CERTIFICATION: I certify the specified therapy services for Bonita Godfrey are required, authorized, and reviewed every 30 days.
--- NOTE | 2023-05-06 14:03 | CARE MANAGER ---
Left message for patient for post-discharge phone interview.
== END 2023-05-05 11:13 | disposition home or self-care (01) ==
LOC: ER 02:14 → 2ND 04:34
PROVIDERS: Internal Medicine; Nurse Practitioner Critical Care Medicine; Admitting Provider Internal Medicine; Emergency Provider Emergency Medicine; PCP Family Medicine; Visit Provider Internal Medicine
DX: J18.9 Pneumonia, unspecified organism (principal); R62.7 Adult failure to thrive; R64 Cachexia; E43 Unspecified severe protein-calorie malnutrition; E87.1 Hypo-osmolality and hyponatremia; D63.8 Anemia in other chronic diseases classified elsewhere; J44.9 Chronic obstructive pulmonary disease, unspecified; F41.9 Anxiety disorder, unspecified; F17.210 Nicotine dependence, cigarettes, uncomplicated; Z68.1 Body mass index [BMI] 19.9 or less, adult; E86.0 Dehydration; C34.2 Malignant neoplasm of middle lobe, bronchus or lung; C79.9 Secondary malignant neoplasm of unspecified site; B39.2 Pulmonary histoplasmosis capsulati, unspecified
CPT/HCPCS: 36415; 70450; 70496; 70498; 71045; 80048; 80053; 81001; 83605; 84134; 85007; 85025; 87040; 87086; 93005; 94640; 97163; 99285; G0378; J3370; Q9967

== ENCOUNTER 2023-05-05 22:28 | Emergency (ER) | payer BC, SELFPAY ==
[2023-05-05 22:28] VITALS: BP 118/75; PULSE 140; RESP 18; TEMP 36.6; O2SAT 97; BMI 13.7
[2023-05-05 22:30] VITALS: BP 131/74; PULSE 121; O2SAT 99
[2023-05-05 23:00] VITALS: BP 112/70; PULSE 122; O2SAT 99
--- NOTE | 2023-05-05 23:20 | CT_ITS ---
PROCEDURE INFORMATION: Exam: CT Head Without And With Contrast Exam date and time: 05/05/2023 11:45 PM Age: 52 years old Clinical indication: Altered mental status/memory loss; Additional info: New sz like activity, worsening mental status TECHNIQUE: Imaging protocol: Computed tomography of the head without and with contrast. Radiation optimization: All CT scans at this facility use at least one of these dose optimization techniques: automated exposure control; mA and/or kV adjustment per patient size (includes targeted exams where dose is matched to clinical indication); or iterative reconstruction. Contrast material: ISOVUE; Contrast volume: 100 ml; Contrast route: IV; REPORTING DATA: Count of CT and Cardiac NM exams in prior 12 months: This patient has received 4 known CTs and 0 known cardiac nuclear medicine studies in the 12 months prior to the current study. COMPARISON: CT HEAD/BRAIN WO CON 05/05/2023 4:14 AM FINDINGS: Brain: As demonstrated on earlier performed noncontrast CT of the head there are multiple cerebral and cerebellar nodular ring-enhancing lesions. The largest of these lesions measures 2.9 cm within the left posterior basal ganglia/temporal lobe. Prominent edema surrounding these lesions. A 1.2 cm region of the left carlson radiata with associated edema exerts mass effect upon the left lateral ventricle body and contributes to 3-4 mm of right midline shift. No acute intracranial hemorrhage. Cerebral ventricles: No ventriculomegaly. Paranasal sinuses: Visualized sinuses are unremarkable. No fluid levels. Mastoid air cells: Visualized mastoid air cells are well aerated. Bones/joints: Unremarkable. No acute fracture. Soft tissues: Unremarkable. IMPRESSION: Redemonstration of numerous cerebral and cerebellar ring lesions which demonstrate peripheral nodular enhancement and are surrounded by prominent edema. The largest of these lesions measures 2.9 cm within the left posterior basal ganglia/temporal lobe. Metastatic disease is favored, although other considerations include cerebral abscesses/infection and demyelination.
--- NOTE | 2023-05-05 23:20 | CT_ITS ---
PROCEDURE INFORMATION: Exam: CT Abdomen And Pelvis With Contrast Exam date and time: 05/06/2023 12:13 AM Age: 52 years old Clinical indication: Abdominal pain; Additional info: New sz like activity, worsening mental status TECHNIQUE: Imaging protocol: Computed tomography of the abdomen and pelvis with contrast. Radiation optimization: All CT scans at this facility use at least one of these dose optimization techniques: automated exposure control; mA and/or kV adjustment per patient size (includes targeted exams where dose is matched to clinical indication); or iterative reconstruction. Contrast material: ISOVUE; Contrast volume: 100 ml; Contrast route: IV; REPORTING DATA: Count of CT and Cardiac NM exams in prior 12 months: This patient has received 4 known CTs and 0 known cardiac nuclear medicine studies in the 12 months prior to the current study. COMPARISON: CT ANGIO ABDOMEN 12/02/2022 5:40 PM FINDINGS: Lungs: centrilobular paraseptal emphysema masslike consolidative opacity right lower lobe. Pleural spaces: No pleural effusion. Heart: Visualized heart is unremarkable. No pericardial effusion. Liver: The liver is enlarged with numerous heterogeneous hypodensities within the liver consistent metastatic disease. Gallbladder and bile ducts: Gallbladder sludge. No intra or extrahepatic biliary ductal dilation. Pancreas: The pancreas is unremarkable. Spleen: The spleen is unremarkable. Adrenal glands: Interval development indeterminate hypodensities intimately associated with the lateral limb of the left adrenal gland. The right adrenal gland is unremarkable. Kidneys and ureters: The kidneys enhance symmetrically without hydronephrosis. The ureters have normal course and caliber without stone. Stomach and bowel: Mild edematous appearance of the gastric wall. The small bowel has normal course and caliber. The large bowel is normal course and caliber. No evidence of obstruction. Appendix: No evidence of appendicitis. Intraperitoneal space: Moderate volume of simple appearing ascites. Vasculature: Unremarkable. No abdominal aortic aneurysm. Lymph nodes: No suspicious adenopathy by size criteria. Urinary bladder: The bladder is normal without focal wall thickening. Reproductive: Unremarkable as visualized. Bones/joints: Lucency through the right pedicle and transverse process of L3. Degenerative changes spine. No acute fracture. Soft tissues: Anasarca. Diffusely decreased soft tissue mass. On department operations manager image suggestion of contrast infiltration within the proximal left upper extremity. IMPRESSION: 1. Interval increased in size and number of hepatic hypodensities suggestive of metastatic disease as well as lytic lesion within right L3 pedicle/transverse process. 2. Small to moderate volume of ascites. 3. Interval development of indeterminate left adrenal nodule may represent metastasis. 4. Other findings as above.
--- NOTE | 2023-05-05 23:20 | CT_ITS ---
PROCEDURE INFORMATION: Exam: CTA Chest With Contrast Exam date and time: 05/06/2023 12:13 AM Age: 52 years old Clinical indication: Shortness of breath; Additional info: SOA, tachycardia TECHNIQUE: Imaging protocol: Computed tomographic angiography of the chest with contrast. Exam focused on the arteries. 3D rendering (Not supervised by radiologist): MIP and/or 3D reconstructed images were created by the technologist. Radiation optimization: All CT scans at this facility use at least one of these dose optimization techniques: automated exposure control; mA and/or kV adjustment per patient size (includes targeted exams where dose is matched to clinical indication); or iterative reconstruction. Contrast material: ISOVUE; Contrast volume: 100 ml; Contrast route: INTRAVENOUS (IV); REPORTING DATA: Count of CT and Cardiac NM exams in prior 12 months: This patient has received 4 known CTs and 0 known cardiac nuclear medicine studies in the 12 months prior to the current study. COMPARISON: CT ANGIO CHEST PE PROTOCOL 12/02/2022 5:40 PM FINDINGS: Pulmonary arteries: No pulmonary embolism. However there is severe narrowing of multiple segmental pulmonary arteries as below. Aorta: No aortic aneurysm. No aortic dissection. Thyroid: The thyroid gland is normal. Lungs: There is a pulmonary mass measuring up to 5.4 cm on the right perihilar region appears to extend into mediastinum encasing and severely narrow segmental right upper and lower lobe pulmonary arteries. Additionally, the mass encases of the bronchus intermedius and severe narrowing of the as well. Mass previously measured 4 cm largest diameter comparison study. Severe emphysematous changes scarring throughout the lungs. Pulmonary bullae. Interval development multiple large irregular shaped thick-walled cavitary type lesions throughout the lungs. 3.8 cm consolidative opacity right lower lobe adjacent ground-glass. Tree-in-bud opacities within the right lower lobe. Debris within bronchi of the right lower lobe. Pleural spaces: No pneumothorax. No pleural effusion. Heart: No cardiomegaly. No pericardial effusion. Lymph nodes: No suspicious adenopathy by size criteria. Bones/joints: No acute fracture. Soft tissues: Diffusely decreased soft tissue mass. Other findings: There is contrast infiltration within the proximal left upper extremity. IMPRESSION: 1. No pulmonary embolism. 2. Interval enlargement of right perihilar mass which encases and severely narrows segmental pulmonary arteries of the right upper and lower lobes. As well as likely invades the mediastinum. The mass also encases and severely narrows the bronchus intermedius. 3. Multiple large irregular shaped cavitary lesions throughout the lungs, increased in number and size over the interval. 4. Consolidative opacity within the right lower lobe adjacent ground-glass may represent infectious etiology or progression disease can not be excluded. 5. Tree-in-bud opacities within the right lower lobe are indeterminate 6. Other findings as above. COMMENTS: In the absence of a history or active diagnosis of lung cancer, it is recommended that this patient with emphysema be evaluated for enrollment in a low dose CT lung cancer screening program.
[2023-05-05 23:30] VITALS: BP 130/89; PULSE 142; O2SAT 98
--- NOTE | 2023-05-06 00:27 | HMH.EDGENADL ---
Discharge Plan Disposition Patient Disposition: Xfer Short-Term Hosp Condition: Fair Chief Complaint: Altered Mental Status Prescriptions Prescriptions: No Action albuterol sulfate [ProAir HFA] 90 mcg/actuation HFA aerosol inhaler 1 inh INHALATION QIDP PRN (Reason: Shortness Of Breath) ondansetron HCl 4 mg Tablet 8 mg PO Q8HP PRN (Reason: nausea/vomiting) oxycodone 10 mg tablet 10 mg PO QIDP PRN (Reason: Pain, Moderate) doxycycline hyclate 100 mg capsule 100 mg PO BID Qty: 10 0RF Referrals Follow up/Referrals: Atul Hall MD [Primary Care Provider] - See instructions Clinical Impressions Clinical Impression: Cancer, metastatic to lung, Lung cancer metastatic to brain, Cerebral edema, Seizure-like activity, Chronic hyponatremia Instructions Patient Instructions: DI for Altered Mental Status Discharge ED Provider: Alejandrina Jeong General Adult HPI General Chief complaint: Altered Mental Status Stated complaint: weaknes Time Seen by Provider: 05/05/23 23:03 Mode of Arrival: EMS Source of Information: EMS Limitations: Altered Mental Status Description of Symptoms (Recalled from ER Triage Doc. by RN): EMS REPORTS THE PT FAMILY STATES THAT THE PT HAS BEEN HAVING MOMENTS OF UNRESPONSIVENESS THE PT WILL LOOK OFF INTO SPACE AND IS NOT AWARE OF ANYTHING GOING ON AROUND HER. THE FAMILY STATES THAT SHE HAS BRAIN CANCER AND THAT SHE HAS NOT BEEN RECIEVING PROPER TREATMENTS History of Present Illness HPI narrative: This patient is a 52-year-old female with a history of metastatic lung cancer, failure to thrive, COPD, and severe malnutrition presenting to the emergency department for evaluation with concern for increasing bouts of unresponsiveness. Patient will stare off into space, become rigid, and will not be aware of anything going on around her. Patient was admitted for episode like this as well as poor oral intake and malnutrition and just discharged from the hospital today. She is not discharged on any antiseizure medications according to the family. She is supposed to follow-up with , where she receives her cancer treatment, but she has not been able to contact them given that it is a weekend. No fevers, cough, congestion, abdominal pain, nausea, vomiting, changes in bowel movements, or other concerns noted. Patient is currently confused and unable to answer orientation questions, which has intermittently been her baseline. She does state that she feels like she cannot breathe. On my review of medical records, the patient was found to have significant worsening metastatic disease. She was also treated for community-acquired pneumonia. She was discharged home at her neurologic baseline to the care of family with instructions to follow-up with [facility]. Related Data Home Medications Medication Instructions Recorded Confirmed albuterol sulfate 90 mcg/actuation 1 inh inhalation QIDP PRN 08/18/22 05/04/23 aerosol inhaler (ProAir HFA) Shortness Of Breath ondansetron HCl 4 mg tablet 8 mg PO Q8HP PRN nausea/vomiting 05/04/23 05/04/23 oxycodone 10 mg tablet 10 mg PO QIDP PRN Pain, Moderate 05/04/23 05/04/23 Previous Rx's Medication Instructions Recorded doxycycline hyclate 100 mg capsule 100 mg PO BID #10 caps 05/05/23 Allergies Allergy/AdvReac Type Severity Reaction Status Date / Time Penicillins [PENICILLINS] Allergy Unknown Verified 08/18/22 03:01 [facility] Disclaimer: The information contained in this section may have been updated after the patient was seen, as this information can be updated by other users. Medical History Abnormal chest xray Anxiety Bronchitis Cavitary lesion of lung COPD (chronic obstructive pulmonary disease) COPD (chronic obstructive pulmonary disease) Dyspnea on exertion History of pneumothorax Lung cancer, middle lobe Lung nodule Multiple pulmonary nodules Personal history of other
--- NOTE | 2023-05-06 00:32 | ECG_ITS ---
APPROVED REPORT Exam: Resting ECG HR:120 bpm ECG Measurements Heart Rate 120 AXES UT 101 P 86 QRSd 62 QRS 86 QT 303 T 73 QTc 374 Conclusion SHORT UT INTERVAL WITH OCCASIONAL SUPRAVENTRICULAR PREMATURE COMPLEXES Variable atrial waveforms-questionable multifocal atrial tachycardia? SEPTAL MYOCARDIAL INFARCTION , OF INDETERMINATE AGE [40+ ms Q WAVE IN V1/V2] ABNORMAL ECG UNCONFIRMED REPORT Electronically signed by : Delvis Soliman MD 05/06/2023 18:01:57
[2023-05-06 00:45] LABS: Basophils % 0.2 % (0.1-2.0); Eosinophils # 0.1 K/mm3 (0.0-0.4); Eosinophils % 0.9 % (0.1-12.0); Hemoglobin 10.2 g/dL (12.2-16.2); Lymphocytes % 8.8 % (10-50); Mean Corpuscular HGB Conc 30.1 g/dL (31.8-35.4); Mean Corpuscular Hemoglobin 27.1 pg (27.0-31.2); Mean Corpuscular Volume 90.1 fl (81-99); Mean Platelet Volume 8.6 fl (7.4-10.4); Monocytes # 0.4 K/mm3 (0.1-1.0); Monocytes % 3.9 % (1.7-9.3); Neutrophils # 9.3 K/mm3 (1.8-7.8); Neutrophils % 86.2 % (37.0-80.0); Platelet Count 254 K/mm3 (142-424); Red Blood Count 3.78 M/mm3 (4.20-5.40); Red Cell Distribution Width 17.8 % (11.5-17.5); White Blood Count 10.8 K/mm3 (4.8-10.8)
[2023-05-06 00:47] LABS: VBG Base Excess -2.1 mmol/L (-2.4-2.3); VBG HCO3 23.1 mmol/L (23-30); VBG Oxygen Saturation 82.9 % (50-70); VBG PCO2 40.1 mmol/L (35-51); VBG PH 7.38 mmol/L (7.31-7.41); VBG PO2 49.2 mmol/L (28-40); VBG Total CO2 24.3 mmol/L (23-27)
[2023-05-06 00:52] LABS: Chloride 96 mmol/L (98-107)
[2023-05-06 00:53] LABS: Ammonia < 9 umol/L (9-30); Potassium 3.8 mmoL/L (3.5-5.1); Sodium 129 mmol/L (136-145)
[2023-05-06 00:54] LABS: Lactic Acid 3.3 mmol/L (0.7-2.1)
[2023-05-06 00:55] LABS: Alanine Aminotransferase 25 U/L (12-78); Albumin/Globulin Ratio 0.7 (1.1-1.8); Alkaline Phosphatase 339 U/L (38-126); Anion Gap 13.8 mEq/L (5-15); Aspartate Amino Transferase 50 U/L (14-36); Bilirubin,Total 1.1 mg/dl (0.2-1.3); Blood Urea Nitrogen 7 mg/dl (7-17); Calcium 7.8 mg/dl (8.4-10.2); Carbon Dioxide 23 mmol/L (22.0-30.0); Creatinine Clearance Estimated 89 mL/min (50-200); Estimated Glomerular Filt Rate 168 ml/min (>60); GFR (African American) 204 ML/MIN (>60); Globulin 2.8 g/dL (1.3-3.2); Glucose 97 mg/dl (74-100); Total Protein,Serum 4.8 g/dl (6.3-8.2)
[2023-05-06 00:56] LABS: Magnesium 1.7 mg/dl (1.6-2.3)
--- NOTE | 2023-05-06 01:08 | PC.NURSE ---
Dr. Jeong at [facility]
[2023-05-06 01:20] LABS: Procalcitonin 0.641 ng/mL (0.0-2.0)
--- NOTE | 2023-05-06 01:23 | PC.NURSE ---
o/p with MD transfer center
--- NOTE | 2023-05-06 01:23 | PC.NURSE ---
Dr. Jeong speaking with Dr. Joseph at
--- NOTE | 2023-05-06 01:27 | PC.NURSE ---
Pt accepted to [facility] by Dr. Joseph
--- NOTE | 2023-05-06 01:32 | PC.NURSE ---
Notified [facility] of pt need for BLS transportation to . Advised they were waiting on truck availability at this time.
[2023-05-06 02:07] VITALS: BP 133/72; PULSE 128; O2SAT 98
[2023-05-06 02:10] LABS: Microscopic, Urine URINE MICROSCOPIC (MICROSCOPIC)
--- NOTE | 2023-05-06 02:10 | PC.NURSE ---
Pt cleaned and changed after incontinent bowel movement. Pt voided in bedpan. No other needs voiced at this time.
[2023-05-06 02:12] LABS: Appearance,Urine SL CLOUDY (Clear); Bilirubin,Urine Negative (Negative); Blood, Urine 1+ (Negative); Color,Urine YELLOW (Yellow); Glucose,Urine (UA) Negative (Negative); Ketones,Urine Negative (Negative); Leukocyte Esterase,Urine Negative (Negative); Nitrate,Urine Negative (Negative); PH,Urine 5.5 (5.0-8.5); Protein,Urine Negative (Negative); Urobilinogen,Urine 0.2 EU/dl (0.2)
[2023-05-06 02:14] LABS: Occult Blood,Stool Positive (Negative)
[2023-05-06 02:27] LABS: Bacteria,Urine Trace /lpf; RBC,Urine Occasional #/hpf (0-3); Yeast,Urine Occasional /lpf
[2023-05-06 03:00] VITALS: BP 133/72; PULSE 128; RESP 22; TEMP 36.6; O2SAT 98
--- NOTE | 2023-05-06 03:21 | HMH.EDGENADL ---
Discharge Plan Disposition Patient Disposition: Xfer Short-Term Hosp Condition: Fair Prescriptions Prescriptions: No Action albuterol sulfate [ProAir HFA] 90 mcg/actuation HFA aerosol inhaler 1 inh INHALATION QIDP PRN (Reason: Shortness Of Breath) ondansetron HCl 4 mg Tablet 8 mg PO Q8HP PRN (Reason: nausea/vomiting) oxycodone 10 mg tablet 10 mg PO QIDP PRN (Reason: Pain, Moderate) doxycycline hyclate 100 mg capsule 100 mg PO BID Qty: 10 0RF Referrals Follow up/Referrals: Atul Hall MD [Primary Care Provider] - See instructions Clinical Impressions Clinical Impression: Cancer, metastatic to lung, Lung cancer metastatic to brain, Cerebral edema, Seizure-like activity, Chronic hyponatremia Stand Alone Forms Stand Alone Forms: Transfer Record - ED Instructions Patient Instructions: DI for Altered Mental Status Discharge ED Provider: Alejandrina Jeong General Adult HPI General Chief complaint: Altered Mental Status Stated complaint: weaknes Time Seen by Provider: 05/05/23 23:03 Mode of Arrival: EMS Source of Information: EMS Limitations: Altered Mental Status Description of Symptoms (Recalled from ER Triage Doc. by RN): EMS REPORTS THE PT FAMILY STATES THAT THE PT HAS BEEN HAVING MOMENTS OF UNRESPONSIVENESS THE PT WILL LOOK OFF INTO SPACE AND IS NOT AWARE OF ANYTHING GOING ON AROUND HER. THE FAMILY STATES THAT SHE HAS BRAIN CANCER AND THAT SHE HAS NOT BEEN RECIEVING PROPER TREATMENTS Related Data Home Medications Medication Instructions Recorded Confirmed albuterol sulfate 90 mcg/actuation 1 inh inhalation QIDP PRN 08/18/22 05/04/23 aerosol inhaler (ProAir HFA) Shortness Of Breath ondansetron HCl 4 mg tablet 8 mg PO Q8HP PRN nausea/vomiting 05/04/23 05/04/23 oxycodone 10 mg tablet 10 mg PO QIDP PRN Pain, Moderate 05/04/23 05/04/23 Previous Rx's Medication Instructions Recorded doxycycline hyclate 100 mg capsule 100 mg PO BID #10 caps 05/05/23 Allergies Allergy/AdvReac Type Severity Reaction Status Date / Time Penicillins [PENICILLINS] Allergy Unknown Verified 08/18/22 03:01 [facility] Disclaimer: The information contained in this section may have been updated after the patient was seen, as this information can be updated by other users. Medical History Abnormal chest xray Anxiety Bronchitis Cavitary lesion of lung COPD (chronic obstructive pulmonary disease) COPD (chronic obstructive pulmonary disease) Dyspnea on exertion History of pneumothorax Lung cancer, middle lobe Lung nodule Multiple pulmonary nodules Personal history of other diseases of the respiratory system Pneumonia Pulmonary emphysema Pulmonary histoplasmosis Pulmonary histoplasmosis Surgical History History of bronchoscopy History of lung surgery Family History Father Emphysema lung COPD (chronic obstructive pulmonary disease) Other Family history of TIAs Family history of hyperlipidemia Family history of hypertension Social History Smoking Status: Former smoker years smoked: 30 second hand exposure: Yes alcohol intake: never substance use type: marijuana current occupational status: unemployed Travel in the last 8 weeks: None household members: none housing: house 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
== END 2023-05-06 03:56 | disposition short-term general hospital (02) ==
PROVIDERS: Emergency Provider Emergency Medicine; PCP Emergency Medicine
DX: G93.6 Cerebral edema (principal); E87.1 Hypo-osmolality and hyponatremia; R56.9 Unspecified convulsions; C79.31 Secondary malignant neoplasm of brain; C34.90 Malignant neoplasm of unspecified part of unspecified bronchus or lung; J44.9 Chronic obstructive pulmonary disease, unspecified; Z87.891 Personal history of nicotine dependence
CPT/HCPCS: 70470; 71275; 74177; 80053; 81001; 82140; 82272; 82803; 83605; 83735; 84145; 85025; 93005; 96361; 96374; 96375; 99291; G0328; J1953; Q9967